=== PATIENT | female | born 1960 | race Caucasian/White ===

== ENCOUNTER 2018-11-24 13:30 | Inpatient (IN) | payer BC, OTHER ==
[2018-11-24] VITALS (8 sets, daily range): BP systolic 76–130; BP diastolic 41–75
[~2018-11-24] VITALS: Ht 160 cm; Wt 137.4 kg
[2018-11-24] MEDS ORDERED: NS IV 1000 ML 1,000 ML ONE (14:23)
[2018-11-24] MEDS: NS IV 1000 ML 1,000 ML IV SCH ×5 (14:35→19:57)
[2018-11-24 14:38] LABS: HEMATOCRIT 28 % (35-52); HEMOGLOBIN 7.6 G/DL (11.5-16.0); MEAN CORPUSCULAR HEMOGLOBIN 21 PG (25-34); MEAN CORPUSCULAR VOLUME 77 FL (80-99); WHITE BLOOD COUNT 22.4 10^3/uL (4.3-11.0)
[2018-11-24 14:39] LABS: BASOPHILS # (AUTO) 0.1 10^3/uL (0.0-0.1); BASOPHILS % (AUTO) 0 % (0-10); EOSINOPHILS # (AUTO) 0.1 10^3/uL (0.0-0.3); EOSINOPHILS % (AUTO) 0 % (0-10); LYMPHOCYTES # (AUTO) 1.6 X 10^3 (1.0-4.0); LYMPHOCYTES % (AUTO) 7 % (12-44); MEAN CORPUSCULAR HGB CONC 27 G/DL (32-36); MEAN PLATELET VOLUME 10.7 FL (7.4-10.4); MONOCYTES # (AUTO) 0.9 X 10^3 (0.0-1.0); MONOCYTES % (AUTO) 4 % (0-12); NEUTROPHILS # (AUTO) 19.3 X 10^3 (1.8-7.8); NEUTROPHILS % (AUTO) 86 % (42-75); PLATELET COUNT 400 10^3/uL (130-400); RED CELL DISTRIBUTION WIDTH 21.1 % (10.0-14.5)
--- NOTE | 2018-11-24 14:47 | Diagnostic Imaging Report ---
INDICATION: Fever and generalized weakness. TIME OF EXAM: 2:20 PM COMPARISON: No prior studies are available for comparison. FINDINGS: Single view examination of the chest fails to reveal evidence of active parenchymal pathology or pleural effusion. The cardiac silhouette is normal. IMPRESSION: Negative chest. Dictated by: Dictated on workstation # [id number]
[2018-11-24 14:52] LABS: BILIRUBIN,URINE 1+ (NEGATIVE); CLARITY,URINE CLOUDY; COLOR,URINE YELLOW; GLUCOSE, URINE (UA) NEGATIVE (NEGATIVE); KETONES,URINE NEGATIVE (NEGATIVE); NITRITE,URINE NEGATIVE (NEGATIVE); PROTEIN,URINE 1+ (NEGATIVE)
[2018-11-24 14:53] LABS: BACTERIA,URINE LARGE /HPF; LEUKOCYTE ESTERASE ,URINE 2+ (NEGATIVE); RBC,URINE 0-2 /HPF; SQUAMOUS EPITHELIAL CELL,UR 25-50 /HPF; UROBILINOGEN,URINE 0.2 MG/DL (NORMAL)
[2018-11-24 14:56] LABS: POTASSIUM 4.9 MMOL/L (3.6-5.0)
[2018-11-24 14:57] LABS: BILIRUBIN,TOTAL 0.3 MG/DL (0.1-1.0); CREATININE SERUM 3.46 MG/DL (0.60-1.30); TOTAL PROTEIN 7.4 GM/DL (6.4-8.2)
[2018-11-24 14:58] LABS: ALBUMIN 4.1 GM/DL (3.2-4.5)
[2018-11-24 15:11] LABS: BAND NEUTROPHILS 9 %; BASOPHILS % (MANUAL) 0 %; EOSINOPHILS % (MANUAL) 1 %; HYPOCHROMASIA SLIGHT; LYMPHOCYTES % (MANUAL) 6 %; METAMYELOCYTES % 1 %; MONOCYTES % (MANUAL) 6 %; NEUTROPHILS % (MANUAL) 77 %
--- NOTE | 2018-11-24 15:41 | ED General ---
General Chief Complaint: Fever-Adult/Adol Stated Complaint: LOW BP, BLURRY VISION Nursing Triage Note: Patient reports fever, generalized weakness, aches, and chills x 3 days. Denies any pain currently, states she vomited several days ago, but attributes nausea/vomiting to "eating things I shouldn't have." She reports chronic diarrhea, states her heart rate is always elevated above 115. Nursing Sepsis Screen: Possible Sepsis Risk Source of Information: Patient, Family Exam Limitations: No Limitations History of Present Illness Date Seen by Provider: Nov 24, 2018 Time Seen by Provider: 15:37 Initial Comments The patient is a 58-year-old white female who relates that she has been sick for the last 3 days. This constituted vomiting diarrhea and fever up to 102. Today she feels lightheaded wobbly and with blurred vision. She reports that she always has a rapid heart rate. She is diabetic and states that her diabetic medications cause diarrhea. She does not have any specific localizing symptoms Timing/Duration: 3-4 Days Allergies and Home Medications Allergies Coded Allergies: codeine (Verified Adverse Reaction, Unknown, 11/24/18) Patient Home Medication List Home Medication List Reviewed: Yes Review of Systems Review of Systems Constitutional: see HPI, dizziness, fever, malaise, weakness EENTM: no symptoms reported Respiratory: no symptoms reported Cardiovascular: palpitations Gastrointestinal: diarrhea, heartburn, loss of appetite, nausea, vomiting Genitourinary: no symptoms reported Musculoskeletal: muscle weakness Skin: no symptoms reported Psychiatric/Neurological: No Symptoms Reported Hematologic/Lymphatic: No Symptoms Reported Past Qkgepxc-Incicv-Gtposs Hx Past Med/Social Hx: Reviewed Nursing Past Med/Soc Hx Patient Social History Alcohol Use: Denies Use Recreational Drug Use: No Smoking Status: Never a Smoker 2nd Hand Smoke Exposure: No Recent Foreign Travel: No Contact w/Someone Who Travel: No Recent Infectious Disease Expo: No Recent Hopitalizations: No Physical Abuse: No Sexual Abuse: No Mistreated: No Fear: No Seasonal Allergies Seasonal Allergies: No Past Medical History Surgeries: Yes Appendectomy, Gallbladder, Hysterectomy Respiratory: Yes COPD Cardiac: Yes Hypertension Neurological: Yes Neuropathy Genitourinary: No Gastrointestinal: Yes Gastroesophageal Reflux Musculoskeletal: No Endocrine: No HEENT: No Cancer: No Psychosocial: No Integumentary: No Blood Disorders: Yes (anemia) Physical Exam-Suspected Sepsis Physical Exam Vital Signs Vital Signs - First Documented 11/24/18 13:50 Temp 100.6 Pulse 133 Resp 23 B/P (MAP) 138/67 (90) Pulse Ox 96 O2 Delivery Room Air Capillary Refill : Less Than 3 Seconds Blood Pressure Mean: 90 Height, Weight, BMI Height: 5'3.00" Weight: 292lbs. oz. 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, 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 Skin: normal color Lymphatic: No Adenopathy Focused Exam Sepsis Stage: Sepsis Lactate Level 11/24/18 15:50: Lactic Acid Level 1.57 Time of Focused Exam: 16:53 Respiratory: Lungs Clear, Normal Breath Sounds Cardiovascular: Tachycardia (rate to 125) Capillary Refill: Less Than 3 Seconds Skin: normal color, warm/dry Lactic Acid Level Laboratory Tests Test 11/24/18 15:50 Lactic Acid Level 1.57 MMOL/L (0.50-2.00) Within 3hrs of presentation: Admin fluids, Admin ABX, Blood cultures prior to ABX's, Focus exam, Lactate level Progress/Results/Core Measures Suspected Sepsis Recent Fever Within 48 Hours: Yes Infection Criteria Present: Suspected New Infection New/Unexplained Altered Menta: No Sepsis Screen: Possible Sepsis Risk SIRS Temperature:100.6 Pulse: 133 Respiratory Rate: 23 Laboratory Tests 11/24/18 13:45: White Blood Count 22.4H Blood Pressure 138 /67 Mean: 90 11/24/18 15:50: Lactic Acid Level 1.57 Laboratory Tests 11/24/18 13:45: Creatinine 3.46H, Platelet Count 400, Total Bilirubin 0.3 Results/Orders Lab Results Laboratory Tests Test 11/24/18 13:45 11/24/18 15:50 Range/Units White Blood Count 22.4 H 4.3-11.0 10^3/uL Red Blood Count 3.68 L 4.35-5.85 10^6/uL Hemoglobin 7.6 L 11.5-16.0 G/DL Hematocrit 28 L 35-52 % Mean Corpuscular Volume 77 L 80-99 FL Mean Corpuscular Hemoglobin 21 L 25-34 PG Mean Corpuscular Hemoglobin Concent 27 L 32-36 G/DL Red Cell Distribution Width 21.1 H 10.0-14.5 % Platelet Count 400 130-400 10^3/uL Mean Platelet Volume 10.7 H 7.4-10.4 FL Neutrophils (%) (Auto) 86 H 42-75 % Lymphocytes (%) (Auto) 7 L 12-44 % Monocytes (%) (Auto) 4 0-12 % Eosinophils (%) (Auto) 0 0-10 % Basophils (%) (Auto) 0 0-10 % Neutrophils # (Auto) 19.3 H 1.8-7.8 X 10^3 Lymphocytes # (Auto) 1.6 1.0-4.0 X 10^3 Monocytes # (Auto) 0.9 0.0-1.0 X 10^3 Eosinophils # (Auto) 0.1 0.0-0.3 10^3/uL Basophils # (Auto) 0.1 0.0-0.1 10^3/uL Neutrophils % (Manual) 77 % Lymphocytes % (Manual) 6 % Monocytes % (Manual) 6 % Eosinophils % (Manual) 1 % Basophils % (Manual) 0 % Metamyelocytes % 1 % Band Neutrophils 9 % Hypochromasia SLIGHT Urine Color YELLOW Urine Clarity CLOUDY Urine pH 5.0 5-9 Urine Specific Combs >=1.030 1.016-1.022 Urine Protein 1+ H NEGATIVE Urine Glucose (UA) NEGATIVE NEGATIVE Urine Ketones NEGATIVE NEGATIVE Urine Nitrite NEGATIVE NEGATIVE Urine Bilirubin 1+ H NEGATIVE Urine Urobilinogen 0.2 NORMAL MG/DL Urine Leukocyte Esterase 2+ H NEGATIVE Urine RBC (Auto) NEGATIVE NEGATIVE Urine RBC 0-2 /HPF Urine WBC 10-25 H /HPF Urine Squamous Epithelial Cells 25-50 H /HPF Urine Crystals NONE /LPF Urine Bacteria LARGE H /HPF Urine Casts NONE /LPF Urine Mucus SMALL H /LPF Urine Culture Indicated YES Sodium Level 135 135-145 MMOL/L Potassium Level 4.9 3.6-5.0 MMOL/L Chloride Level 98 98-107 MMOL/L Carbon Dioxide Level 20 L 21-32 MMOL/L Anion Gap 17 H 5-14 MMOL/L Blood Urea Nitrogen 33 H 7-18 MG/DL Creatinine 3.46 H 0.60-1.30 MG/DL Estimat Glomerular Filtration Rate 14 BUN/Creatinine Ratio 10 Glucose Level 88 70-105 MG/DL Calcium Level 9.0 8.5-10.1 MG/DL Corrected Calcium 8.9 8.5-10.1 MG/DL Total Bilirubin 0.3 0.1-1.0 MG/DL Aspartate Amino Transf (AST/SGOT) 16 5-34 U/L Alanine Aminotransferase (ALT/SGPT) 13 0-55 U/L Alkaline Phosphatase 94 40-136 U/L Total Protein 7.4 6.4-8.2 GM/DL Albumin 4.1 3.2-4.5 GM/DL Lactic Acid Level 1.57 0.50-2.00 MMOL/L My Orders Orders - BRITTNEY BETTENCOURT MD Cbc With Automated Diff (11/24/18 14:21) Comprehensive Metabolic Panel (11/24/18 14:21) Ua Culture If Indicated (11/24/18 14:21) Chest 1 View Ap/Pa Only (11/24/18 14:23) Ns Iv 1000 Ml (Sodium Chloride 0.9%) (11/24/18 14:23) Ns Iv 1000 Ml (Sodium Chloride 0.9%) (11/24/18 14:45) Manual Differential (11/24/18 13:45) Urine Culture (11/24/18 13:45) Blood Culture (11/24/18 15:28) Lactic Acid Analyzer (11/24/18 15:28) Sputum Culture (11/24/18 15:28) Ns Iv 1000 Ml (Sodium Chloride 0.9%) (11/24/18 15:30) Blood Culture (11/24/18 15:37) Ceftriaxone For Iv Use (Rocephin For I (11/24/18 16:45) Ceftriaxone For Iv Use (Rocephin For I (11/24/18 16:41) Vital Signs/I&O 11/24/18 13:50 Temp 100.6 Pulse 133 Resp 23 B/P (MAP) 138/67 (90) Pulse Ox 96 O2 Delivery Room Air Capillary Refill : Less Than 3 Seconds Blood Pressure Mean: 90 Departure Communication (Admissions) The patient's temperature was 100.6 blood pressure 138/67 pulse 133 anion gap 17 creatinine 3.46 UA White blood cells 10-25 chest x-ray was negative white count was 22,400 hemoglobin was 7.6 lactic acid was 1.57. Her previous record was probed. There were no previous CBCs or chemistries available. I spoke to Dr. Silvia Borjas at [facility] and the patient will be transferred to via [facility] with a diagnosis of sepsis. She has responded well to IV fluids. She has been given a dose of Rocephin as her UA is the only apparent source of infection. Impression Primary Impression: sepsis/apparent urinary tract infection Additional Impression: dehydration/AR I Disposition: 09 ADMITTED INPATIENT Condition: Improved Admissions Decision to Admit Reason: Admit from ER (General) Decision to Admit/Date: Nov 24, 2018 Time/Decision to Admit Time: 16:10 BRITTNEY BETTENCOURT MD Nov 24, 2018 15:41
[2018-11-24] MEDS ORDERED: cefTRIAXone 1,000 MG IV (ROCEPHIN) VIAL ONE (16:41)
[2018-11-24] MEDS ORDERED: cefTRIAXone FOR IV USE 1,000 MG in WATER (STERILE) FOR INJECTION 10 ML IV ONE (16:45)
[2018-11-24] MEDS: inSUlin ASPART (NovoLOG) 1 UNIT/0.01 ML (CHARGE PER UNIT) SC SCH (21:50)
[2018-11-24] MEDS ORDERED: PANTOPRAZOLE 20 MG TABLET (PROTONIX) PO ONE (22:04)
[2018-11-24] MEDS: PANTOPRAZOLE 20 MG TABLET (PROTONIX) PO SCH (22:16)
[2018-11-24] MEDS: ENOXAPARIN 30 MG/0.3 ML (LOVENOX) SYR SC SCH (22:17)
[2018-11-25] VITALS (25 sets, daily range): BP systolic 97–163; BP diastolic 48–89
[2018-11-25] MEDS: NS IV 1000 ML 1,000 ML IV SCH ×4 (02:45→23:36)
[2018-11-25 03:30] LABS: BASOPHILS # (AUTO) 0.1 10^3/uL (0.0-0.1); BASOPHILS % (AUTO) 1 % (0-10); EOSINOPHILS # (AUTO) 0.1 10^3/uL (0.0-0.3); EOSINOPHILS % (AUTO) 1 % (0-10); HEMATOCRIT 24 % (35-52); LYMPHOCYTES # (AUTO) 1.8 X 10^3 (1.0-4.0); LYMPHOCYTES % (AUTO) 14 % (12-44); MEAN CORPUSCULAR HGB CONC 28 G/DL (32-36); MEAN CORPUSCULAR VOLUME 76 FL (80-99); MEAN PLATELET VOLUME 10.5 FL (7.4-10.4); MONOCYTES # (AUTO) 0.5 X 10^3 (0.0-1.0); MONOCYTES % (AUTO) 4 % (0-12); NEUTROPHILS # (AUTO) 10.3 X 10^3 (1.8-7.8); NEUTROPHILS % (AUTO) 81 % (42-75); PLATELET COUNT 318 10^3/uL (130-400); RED CELL DISTRIBUTION WIDTH 21.1 % (10.0-14.5); WHITE BLOOD COUNT 12.7 10^3/uL (4.3-11.0)
[2018-11-25 03:31] LABS: MEAN CORPUSCULAR HEMOGLOBIN 22 PG (25-34)
[2018-11-25 03:44] LABS: CREATININE SERUM 2.27 MG/DL (0.60-1.30); POTASSIUM 4.5 MMOL/L (3.6-5.0)
[2018-11-25 03:45] LABS: ALBUMIN 3.4 GM/DL (3.2-4.5); BILIRUBIN,TOTAL 0.1 MG/DL (0.1-1.0); MAGNESIUM 1.7 MG/DL (1.8-2.4); PHOSPHORUS 4.1 MG/DL (2.3-4.7); TOTAL PROTEIN 6.2 GM/DL (6.4-8.2)
[2018-11-25] MEDS: inSUlin ASPART (NovoLOG) 1 UNIT/0.01 ML (CHARGE PER UNIT) SC SCH ×4 (05:09→20:14)
--- NOTE | 2018-11-25 05:09 | Pulmonary Consultation ---
History of Present Illness History of Present Illness Date of Consultation 11/25/18 05:08 Time Seen by Provider: 05:09 Date of Admission History of Present Illness 58yo presented to ED secondary to worsening fever (102), SOB, N/v, chills, and weakness over the last 3 days.SOB is worse with even little exertion. Pt also has a hx of JACK however she is noncompliant with CPAP therapy. I am consulted for pulmonary management. Allergies and Home Medications Allergies Coded Allergies: codeine (Verified Adverse Reaction, Unknown, 11/24/18) Home Medications Allopurinol 300 Mg Tablet, 300 MG PO DAILY, (Reported) Aspirin 81 Mg Tablet.dr, 81 MG PO HS, (Reported) Cholecalciferol (Vitamin D3) 2,000 Unit Tablet, 2,000 UNIT PO DAILY, (Reported) Fluoxetine HCl 40 Mg Capsule, 40 MG PO DAILY, (Reported) Gabapentin 300 Mg Capsule, 300 MG PO HS, (Reported) Glipizide 5 Mg Tablet, 2.5 MG PO DAILY Prescribed by: TU SOLIS on 12/01/18 1045 Lisinopril 20 Mg Tablet, 20 MG PO DAILY Prescribed by: TU SOLIS on 12/01/18 1043 Multivitamin 1 Each Tablet, 1 TAB PO DAILY, (Reported) Omeprazole 20 Mg Capsule.dr, 20 MG PO HS, (Reported) Progesterone,Micronized 200 Mg Capsule, 200 MG PO HS, (Reported) Past Meucdyp-Kgrkjv-Tsuyei Hx Past Med/Social Hx: Reviewed Nursing Past Med/Soc Hx Patient Social History Alcohol Use: Denies Use Recreational Drug Use: No Smoking Status: Never a Smoker 2nd Hand Smoke Exposure: No Recent Foreign Travel: No Contact w/Someone Who Travel: No Recent Infectious Disease Expo: No Recent Hopitalizations: No Physical Abuse: No Sexual Abuse: No Mistreated: No Fear: No Seasonal Allergies Seasonal Allergies: No Past Medical History Surgeries: Yes Appendectomy, Gallbladder, Hysterectomy Respiratory: Yes COPD Cardiac: Yes Hypertension Neurological: Yes Neuropathy Genitourinary: No Gastrointestinal: Yes Gastroesophageal Reflux Musculoskeletal: No Endocrine: No HEENT: No Cancer: No Psychosocial: No Integumentary: No Blood Disorders: Yes (anemia) Review of Systems Time Seen by Provider: 11:15 Constitutional: Fever, Chills, Sweats, Weakness, Malaise, Other Eyes: No: Pain, Vision change, Conjunctivae inflammation, Eyelid inflammation, Other, Redness ENT: Nose congestion; No: Ear pain, Ear discharge, Nose pain, Nose discharge, Mouth pain, Mouth swelling, Throat pain, Throat swelling, Other Respiratory: Cough, Shortness of breath, SOB with excertion, Wheezing; No: Hemoptysis, Pleuritic Pain Cardiovascular: Palpitations, Paroxysmal Noc. Dyspnea, Lt Headedness Gastrointestinal: Nausea, Abdominal Pain Sepsis Event Evaluation Height, Weight, BMI Height: 5'3.00" Weight: 292lbs. 0.0oz. 132.474264ep; 51.7 BMI Method:Stated Exam Exam Vital Signs Date Time Temp Pulse Resp B/P (MAP) Pulse Ox O2 Delivery O2 Flow Rate FiO2 11/25/18 04:00 102 21 108/59 (75) 99 Nasal Cannula 2.00 11/25/18 04:00 96 Nasal Cannula 2.00 11/25/18 03:00 101 12 107/48 (67) 100 Nasal Cannula 2.00 11/25/18 02:00 105 22 130/68 (88) 99 Nasal Cannula 2.00 11/25/18 01:00 110 28 107/63 (78) 90 Room Air 11/25/18 01:00 107 11/25/18 00:00 112 28 101/60 (74) 90 Room Air 11/25/18 00:00 97 Room Air 11/24/18 23:00 129 24 96 Room Air 11/24/18 22:00 128 23 130/69 (89) 98 Room Air 11/24/18 21:00 135 28 120/60 (80) 96 Room Air 11/24/18 20:00 96 Room Air 11/24/18 20:00 123 14 94/51 (65) 95 Room Air 11/24/18 19:30 123 9 95/57 (70) 96 Room Air 11/24/18 19:29 98.2 122 16 95/46 (62) 96 Room Air 11/24/18 19:00 124 11/24/18 19:00 126 10 76/53 (61) 92 Room Air 11/24/18 18:45 96 Room Air 11/24/18 18:45 128 39 83/41 (55) 93 Room Air 11/24/18 18:30 128 13 130/75 (93) 94 Room Air 11/24/18 17:45 100.5 134 35 128/56 (80) 94 Room Air 11/24/18 13:50 100.6 133 23 138/67 (90) 96 Room Air I & O 11/25/18 07:00 Intake Total 5450 ml Output Total 700 ml Balance 4750 ml Height & Weight Height: 5'3.00" Weight: 292lbs. 0.0oz. 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 Hx of tobacco use CARMEN ABDALLA DO Nov 25, 2018 05:09
[2018-11-25] MEDS ORDERED: morphine INJ 4 MG/ML 1 ML (VIAL/SYRINGE) IVP PRN (06:15)
[2018-11-25] MEDS: MAGNESIUM 1 GM/100 ML IVPB 100 ML IV SCH ×2 (08:29→10:36)
[2018-11-25] MEDS: PANTOPRAZOLE 20 MG TABLET (PROTONIX) PO SCH ×2 (08:59→20:14)
--- NOTE | 2018-11-25 09:35 | Diagnostic Imaging Report ---
INDICATION: Shortness of breath. Portable chest at 3:36 AM FINDINGS: Heart size and pulmonary vascularity are normal. Lungs are clear. There are no effusions or pneumothoraces. IMPRESSION: Negative chest. Dictated by: Dictated on workstation # [id number]
--- NOTE | 2018-11-25 15:54 | History & Physical ---
HPI History of Present Illness: 58 yo F that presented with worsening shortness of breath, fever and vomiting. States that she had a previous admission with similar onset several years ago. States that she has been feeling bad for about a week. She has had temps up to 102 in the last 48 hrs. Denies any coughing but having shortness of breath with minimal activity. States that she does not wear oxygen at home. She is suppose to be on CPAP but does not wear it. Denies any sick contacts. She was found to be profoundly anemia. Denies any GI bleeding. Source: patient Date seen by provider: Nov 25, 2018 Time Seen by Provider: 11:30 Attending Physician Dayo Grey MD PCP SelfOlman MD Consult Date of Admission Nov 24, 2018 at 17:10 Home Medications Home Medications Reviewed patient Home Medication Reconciliation performed by pharmacy medication reconciliations isotope technician and/or nursing. Patients Allergies have been reviewed. Allergies Coded Allergies: codeine (Verified Adverse Reaction, Unknown, 11/24/18) KEM-Csrqff-Aomite Hx Patient Social History Living Status: Lives at home with Alcohol Use: Denies Use Recreational Drug Use: No Smoking Status: Former Smoker (quit in 2002) 2nd Hand Smoke Exposure: No Recent Foreign Travel: No Contact w/other who traveled: No Recent Hopitalizations: No Recent Infectious Disease Expo: No Past Medical History Obesity JACK: Non compliant with CPAP NIDDM Family Medical History Significant Family History: No Pertinent Family Hx Review of Systems (CHC) Constitutional: chills, fever, malaise, weakness EENTM: no symptoms reported; No nose congestion, No nose pain, No throat pain Respiratory: dyspnea on exertion, orthopnea, short of breath Cardiovascular: no symptoms reported; No chest pain, No edema, No palpitations Gastrointestinal: No abdominal pain, No constipation, No diarrhea; loss of appetite; No melena Genitourinary: No dysuria; frequency; No hematuria : No Musculoskeletal: no symptoms reported; No back pain, No joint pain, No muscle pain Skin: no symptoms reported; No lesions, No rash Psychiatric/Neurological: No Symptoms Reported Reviewed Test Results Reviewed Test Results Lab Laboratory Tests Test 11/24/18 20:07 11/25/18 02:54 11/25/18 06:15 11/25/18 06:55 Range/Units Glucometer 84 70-110 MG/DL White Blood Count 12.7 H 4.3-11.0 10^3/uL Red Blood Count 3.15 L 4.35-5.85 10^6/uL Hemoglobin 7.0 L 11.5-16.0 G/DL Hematocrit 24 L 35-52 % Mean Corpuscular Volume 76 L 80-99 FL Mean Corpuscular Hemoglobin 22 L 25-34 PG Mean Corpuscular Hemoglobin Concent 28 L 32-36 G/DL Red Cell Distribution Width 21.1 H 10.0-14.5 % Platelet Count 318 130-400 10^3/uL Mean Platelet Volume 10.5 H 7.4-10.4 FL Neutrophils (%) (Auto) 81 H 42-75 % Lymphocytes (%) (Auto) 14 12-44 % Monocytes (%) (Auto) 4 0-12 % Eosinophils (%) (Auto) 1 0-10 % Basophils (%) (Auto) 1 0-10 % Neutrophils # (Auto) 10.3 H 1.8-7.8 X 10^3 Lymphocytes # (Auto) 1.8 1.0-4.0 X 10^3 Monocytes # (Auto) 0.5 0.0-1.0 X 10^3 Eosinophils # (Auto) 0.1 0.0-0.3 10^3/uL Basophils # (Auto) 0.1 0.0-0.1 10^3/uL Sodium Level 137 135-145 MMOL/L Potassium Level 4.5 3.6-5.0 MMOL/L Chloride Level 110 #H 98-107 MMOL/L Carbon Dioxide Level 17 L 21-32 MMOL/L Anion Gap 10 5-14 MMOL/L Blood Urea Nitrogen 28 H 7-18 MG/DL Creatinine 2.27 H 0.60-1.30 MG/DL Estimat Glomerular Filtration Rate 22 BUN/Creatinine Ratio 12 Glucose Level 126 H 70-105 MG/DL Calcium Level 8.0 L 8.5-10.1 MG/DL Corrected Calcium 8.5 8.5-10.1 MG/DL Phosphorus Level 4.1 2.3-4.7 MG/DL Magnesium Level 1.7 L 1.8-2.4 MG/DL Total Bilirubin 0.1 0.1-1.0 MG/DL Aspartate Amino Transf (AST/SGOT) 19 5-34 U/L Alanine Aminotransferase (ALT/SGPT) 14 0-55 U/L Alkaline Phosphatase 80 40-136 U/L Total Protein 6.2 L 6.4-8.2 GM/DL Albumin 3.4 3.2-4.5 GM/DL Stool Occult Blood Immunoassay NEGATIVE NEGATIVE Test 11/25/18 11:55 11/25/18 15:42 Range/Units Glucometer 121 H 128 H 70-110 MG/DL Physical Exam-(CHC) Physical Exam Vital Signs VS - Last 72 Hours, by Label 11/24/18 11/24/18 11/24/18 11/24/18 13:50 17:45 18:30 18:45 Temp 100.6 100.5 Pulse 133 134 128 128 Resp 23 35 13 39 B/P (MAP) 138/67 (90) 128/56 (80) 130/75 (93) 83/41 (55) Pulse Ox 96 94 94 93 O2 Delivery Room Air Room Air Room Air Room Air 11/24/18 11/24/18 11/24/18 11/24/18 18:45 19:00 19:00 19:29 Temp 98.2 Pulse 126 124 122 Resp 10 16 B/P (MAP) 76/53 (61) 95/46 (62) Pulse Ox 96 92 96 O2 Delivery Room Air Room Air Room Air 11/24/18 11/24/18 11/24/18 11/24/18 19:30 20:00 20:00 21:00 Pulse 123 123 135 Resp 9 14 28 B/P (MAP) 95/57 (70) 94/51 (65) 120/60 (80) Pulse Ox 96 95 96 96 O2 Delivery Room Air Room Air Room Air Room Air 11/24/18 11/24/18 11/25/18 11/25/18 22:00 23:00 00:00 00:00 Pulse 128 129 112 Resp 23 24 28 B/P (MAP) 130/69 (89) 101/60 (74) Pulse Ox 98 96 97 90 O2 Delivery Room Air Room Air Room Air Room Air 11/25/18 11/25/18 11/25/18 11/25/18 01:00 01:00 02:00 03:00 Pulse 107 110 105 101 Resp 28 22 12 B/P (MAP) 107/63 (78) 130/68 (88) 107/48 (67) Pulse Ox 90 99 100 O2 Delivery Room Air Nasal Cannula Nasal Cannula O2 Flow Rate 2.00 2.00 11/25/18 11/25/18 11/25/18 11/25/18 04:00 04:00 05:00 06:00 Pulse 102 101 105 Resp 21 16 28 B/P (MAP) 108/59 (75) 99/56 (70) 99/56 (70) Pulse Ox 96 99 98 96 O2 Delivery Nasal Cannula Nasal Cannula Nasal Cannula Nasal Cannula O2 Flow Rate 2.00 2.00 2.00 2.00 11/25/18 11/25/18 11/25/18 11/25/18 07:00 07:00 08:00 08:00 Pulse 101 97 114 Resp 8 13 B/P (MAP) 109/59 (76) 119/59 (79) Pulse Ox 96 96 96 O2 Delivery Nasal Cannula Nasal Cannula Nasal Cannula O2 Flow Rate 2.00 2.00 2.00 11/25/18 11/25/18 11/25/18 11/25/18 08:32 09:00 11:00 12:00 Pulse 113 103 Resp 15 20 B/P (MAP) 99/65 (76) 97/65 (76) Pulse Ox 96 94 96 O2 Delivery Nasal Cannula Nasal Cannula Nasal Cannula Nasal Cannula O2 Flow Rate 2.00 2.00 2.00 2.00 11/25/18 11/25/18 11/25/18 11/25/18 12:00 12:33 12:45 13:00 Temp 97.1 98.0 Pulse 111 108 105 95 Resp 34 17 17 B/P (MAP) 124/81 (95) 124/81 119/73 Pulse Ox 95 95 96 O2 Delivery Nasal Cannula Room Air Room Air O2 Flow Rate 2.00 11/25/18 11/25/18 11/25/18 11/25/18 13:00 14:00 14:45 15:00 Temp 98.0 97.6 Pulse 109 107 107 107 Resp 14 21 22 14 B/P (MAP) 140/80 (100) 129/73 (91) 131/73 124/68 (86) Pulse Ox 93 93 93 93 O2 Delivery Nasal Cannula Nasal Cannula Room Air Nasal Cannula O2 Flow Rate 2.00 2.00 2.00 Capillary Refill : Less Than 3 SecondsLess Than 3 Seconds General Appearance: WD/WN, mild distress (with minimal activity), obese HEENT: PERRL/EOMI Neck: non-tender, full range of motion, supple Respiratory: chest non-tender, lungs clear, normal breath sounds, respiratory distress Cardiovascular: normal peripheral pulses, regular rate, rhythm, no murmur, other (1+ pitting edema bilaterally) Gastrointestinal: normal bowel sounds, non tender, soft Back: no CVA tenderness, no vertebral tenderness Extremities: normal range of motion, non-tender, no calf tenderness, normal capillary refill 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, no motor/sensory deficits, alert, normal mood/affect, oriented x 3 Skin: normal color, warm/dry Lymphatic: no adenopathy Assessment/Plan Assessment/Plan Admission Status: Inpatient Order (span 2 midnights) Reason for Inpatient Admission: Patient needs workup for shortness of breath, requiring blood transfusions (1) Sepsis secondary to UTI Status: Acute Assessment & Plan: - IVFs, IV antibiotics, HDS, awaiting cultures (2) Acute renal failure Status: Acute Assessment & Plan: - Will continue to monitor with IVFs Qualifiers: Qualified Codes: N17.9 - Acute kidney failure, unspecified (3) Hypoxia Status: Acute Assessment & Plan: - BNP and echo pending, Dr Og consulted (4) Microcytic anemia Status: Acute Assessment & Plan: - 1 unit pRBCs, iron studies pending, Hemoccult pending (5) Dehydration Status: Acute (6) JACK (obstructive sleep apnea) Status: Chronic Assessment & Plan: - Discussed the need to wear CPAP (7) DVT prophylaxis Status: Acute Assessment & Plan: - SCDs given profound anemia Clinical Quality Measures DVT/VTE Risk/Contraindication: Risk Factor Score Per Nursin RFS Level Per Nursing on Admit: 3=High Copy Copies To 1: SELF,OLMAN GREY,DAYO Koenig MD Nov 25, 2018 15:54
[2018-11-25] MEDS: cefTRIAXone 1,000 MG/SWFI 10 ML IV PUSH IV SCH ×2 (16:47)
--- NOTE | 2018-11-25 19:30 | NUR ---
SSI non admin d/t patient still eating dinner.
[2018-11-25] MEDS: ENOXAPARIN 30 MG/0.3 ML (LOVENOX) SYR SC SCH (20:15)
[2018-11-25] MEDS: ACETAMINOPHEN 325 MG TABLET PO PRN (21:02)
[2018-11-26] VITALS (8 sets, daily range): BP systolic 140–168; BP diastolic 68–89
[2018-11-26 03:52] LABS: BASOPHILS % (AUTO) 1 % (0-10); EOSINOPHILS # (AUTO) 0.3 10^3/uL (0.0-0.3); EOSINOPHILS % (AUTO) 3 % (0-10); HEMATOCRIT 25 % (35-52); LYMPHOCYTES # (AUTO) 1.4 X 10^3 (1.0-4.0); LYMPHOCYTES % (AUTO) 16 % (12-44); MEAN CORPUSCULAR HEMOGLOBIN 21 PG (25-34); MEAN CORPUSCULAR HGB CONC 28 G/DL (32-36); MEAN CORPUSCULAR VOLUME 77 FL (80-99); MEAN PLATELET VOLUME 10.7 FL (7.4-10.4); MONOCYTES # (AUTO) 0.6 X 10^3 (0.0-1.0); MONOCYTES % (AUTO) 7 % (0-12); NEUTROPHILS # (AUTO) 6.1 X 10^3 (1.8-7.8); NEUTROPHILS % (AUTO) 74 % (42-75); PLATELET COUNT 262 10^3/uL (130-400); WHITE BLOOD COUNT 8.3 10^3/uL (4.3-11.0)
--- NOTE | 2018-11-26 03:55 | NUR ---
Order to transfer patient to4th floor status per Dr Grey. Patient will transfer to room 420. Report given to Priya via telephone.
[2018-11-26 04:13] LABS: CALCIUM 8.3 MG/DL (8.5-10.1); CREATININE SERUM 1.88 MG/DL (0.60-1.30); MAGNESIUM 2.1 MG/DL (1.8-2.4); POTASSIUM 4.5 MMOL/L (3.6-5.0)
--- NOTE | 2018-11-26 04:30 | NUR ---
TRANSFERRED TO ROOM 420 PER W/C. IV INFUSING AT 75CC/HR. AMBULATORY TO BATHROOM WITH SBA AND WALKER. FAIRLY STEADY GAIT. 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 ALERT AND ORIENTED X4. PLEASANT AND COOPERATIVE. HGB 7.0 THIS MORNING.
[2018-11-26] MEDS: inSUlin ASPART (NovoLOG) 1 UNIT/0.01 ML (CHARGE PER UNIT) SC SCH ×4 (05:25→19:53)
--- NOTE | 2018-11-26 07:28 | Pulmonary Progress Note ---
Subjective Time Seen by a Provider: 07:28 Subjective/Events-last exam NO complications noted. Sepsis Event Evaluation Height, Weight, BMI Height: 5'3.00" Weight: 310lbs. 3.0oz. [id number]; 51.7 BMI Method:Stated Focused Exam Lactate Level 11/24/18 15:50: Lactic Acid Level 1.57 Time of Focused Exam: 16:53 Exam Exam Vital Signs Date Time Temp Pulse Resp B/P (MAP) Pulse Ox O2 Delivery O2 Flow Rate FiO2 11/26/18 05:26 97.7 109 18 143/68 (93) 96 Nasal Cannula 2.00 2.00 11/26/18 04:51 97.7 109 18 143/68 (93) 96 Nasal Cannula 2.00 11/26/18 03:15 97 Nasal Cannula 2.00 11/26/18 03:15 97.7 112 18 154/89 (110) 97 Nasal Cannula 2.00 11/26/18 03:00 105 13 98 Room Air 11/26/18 02:00 99 13 97 Room Air 11/26/18 01:00 105 26 149/72 (97) 98 Room Air 11/26/18 01:00 105 11/26/18 00:00 103 22 140/73 (95) 98 Room Air 11/25/18 23:25 Nasal Cannula 2.00 11/25/18 23:25 96 Nasal Cannula 2.00 11/25/18 23:00 98.0 Nasal Cannula 2.00 11/25/18 23:00 102 21 137/78 (97) 98 Room Air 11/25/18 22:00 105 20 140/86 (104) 99 Room Air 11/25/18 21:15 111 19 163/89 (113) 96 Room Air 11/25/18 20:00 114 10 139/77 (97) 92 Room Air 11/25/18 20:00 97.9 Room Air 11/25/18 19:45 96 Room Air 11/25/18 19:00 111 17 145/78 (100) 96 Nasal Cannula 2.00 11/25/18 19:00 111 11/25/18 18:00 107 15 124/71 (88) 96 Nasal Cannula 2.00 11/25/18 17:00 106 15 130/72 (91) 95 Nasal Cannula 2.00 11/25/18 16:00 105 20 141/81 (101) 99 Nasal Cannula 2.00 11/25/18 16:00 96 Nasal Cannula 2.00 11/25/18 15:00 107 14 124/68 (86) 93 Nasal Cannula 2.00 11/25/18 14:45 97.6 107 22 131/73 93 Room Air 11/25/18 14:00 107 21 129/73 (91) 93 Nasal Cannula 2.00 11/25/18 13:00 98.0 109 14 140/80 (100) 93 Nasal Cannula 2.00 11/25/18 13:00 98.0 95 17 119/73 96 Room Air 11/25/18 12:45 97.1 105 17 124/81 95 Room Air 11/25/18 12:33 108 11/25/18 12:00 111 34 124/81 (95) 95 Nasal Cannula 2.00 11/25/18 12:00 96 Nasal Cannula 2.00 11/25/18 11:00 103 20 97/65 (76) 94 Nasal Cannula 2.00 11/25/18 09:00 113 15 99/65 (76) 96 Nasal Cannula 2.00 11/25/18 08:32 Nasal Cannula 2.00 11/25/18 08:00 114 13 119/59 (79) 96 Nasal Cannula 2.00 11/25/18 08:00 96 Nasal Cannula 2.00 I & O 11/26/18 07:00 Intake Total 3520 ml Output Total 7050 ml Balance -3530 ml Height & Weight Height: 5'3.00" Weight: 310lbs. 3.0oz. 140.602982hr; 51.7 BMI Method:Stated General Appearance: No Apparent Distress Neck: Normal Inspection Respiratory: Lungs Clear, Normal Breath Sounds Capillary Refill: Less Than 3 Seconds Gastrointestinal: normal bowel sounds, non tender, soft Extremity: Normal Capillary Refill, Normal Inspection, Normal Range of Motion, Non Tender, No Calf Tenderness, No Pedal Edema Neurologic/Psychiatric: Alert, Oriented x3, No Motor/Sensory Deficits, Normal Mood/Affect, flight teacher II-XII Norm as Tested Lymphatic: No Adenopathy Results Lab Laboratory Tests 11/24/18 13:45 11/25/18 02:54 11/26/18 03:25 Assessment/Plan Assessment/Plan Sepsis with UTI -Rocephin -Dacosta cultures Metabolic acidosis -IVF Anemia -Monitor Acute renal failure -Monitor Obesity with JACK -Noncompliant CPAP therapy Medical noncompliance -Pt refused CPAP therapy and home oxygen in the past -She also has stopped all of her INH. Hx of tobacco use CARMEN ABDALLA DO Nov 26, 2018 07:28
[2018-11-26] MEDS: PANTOPRAZOLE 20 MG TABLET (PROTONIX) PO SCH ×2 (09:15→19:57)
--- NOTE | 2018-11-26 09:15 | NUR ---
IVF DC'D ORDERED.
--- NOTE | 2018-11-26 10:49 | Diagnostic Imaging Report ---
INDICATION: Dyspnea FINDINGS: Upright portable chest shows normal heart size and vascularity. The lungs are clear. There is no effusion or pneumothorax. There is no bony abnormality. IMPRESSION: Normal chest with no change from 11/25/2018. Dictated by: Dictated on workstation # [id number]
--- NOTE | 2018-11-26 12:09 | NUR ---
ARRIVED IN PATIENT ROOM PATIENT ON ROOM AIR OXYGEN SAT WAS 87% PLACED PATIENT BACK ON 2L/M STARTED WALK ON 2L SAT DROPPED TO 84% AT TWO MINUTES TURNED OXYGEN UP TO 4L OXYGEN SAT CAME UP TO 93% AND REMAINED THERE FOR REMAINDER OF THE 6 MINUTES Addendum: 11/26/18 at 1212 by CHEKO PALMA RT Amended: Links added.
[2018-11-26 12:29] LABS: CALCIUM 8.5 MG/DL (8.5-10.1); CREATININE SERUM 1.75 MG/DL (0.60-1.30); POTASSIUM 4.6 MMOL/L (3.6-5.0)
--- NOTE | 2018-11-26 16:53 | Progress Note ---
Subjective Subjective/Events-last exam Patient asking to go home today. Hgb has not improved. Patient is still having severe shortness of breath with minimal activity. Tolerating PO diet and ambulation. Review of Systems Date Seen by Provider: Nov 26, 2018 Time Seen by Provider: 08:40 Pulmonary: Dyspnea, Cough Cardiovascular: No: Chest Pain, Palpitations Gastrointestinal: No: Nausea, Vomiting, Abdominal Pain Neurological: Weakness Focused Exam Lactate Level 11/24/18 15:50: Lactic Acid Level 1.57 Time of Focused Exam: 16:53 Objective Exam Last Set of Vital Signs Vital Signs Date Time Temp Pulse Resp B/P (MAP) Pulse Ox O2 Delivery O2 Flow Rate FiO2 11/26/18 16:05 98.3 105 20 158/81 (106) 99 Nasal Cannula 2.00 Capillary Refill : Less Than 3 SecondsLess Than 3 Seconds I&O Intake and Output 11/26/18 00:00 Intake Total 4620 ml Output Total 4850 ml Balance -230 ml Intake Oral 2570 ml IV Total 2000 ml Other 50 ml Output Urine Total 4850 ml # Voids 2 # Bowel Movements 4 General: Alert, Oriented X3, Cooperative, Mild Distress (with minimal activity) HEENT: Mucous Memb Moist/Social Circle Lungs: Clear to Auscultation, Normal Air Movement Heart: Regular Rate, No Murmurs Abdomen: Normal Bowel Sounds, Soft, No Tenderness, No Masses Extremities: Other (2+ pitting edema bilaterally) Skin: No Rashes, No Breakdown Neuro: Normal Speech, Sensation Intact, Cranial Nerves 3-12 NL Results/Procedures Lab Laboratory Tests 11/25/18 22:17: Glucometer 133H 11/26/18 03:25: White Blood Count 8.3, Red Blood Count 3.27L, Hemoglobin 7.0L, Hematocrit 25L, Mean Corpuscular Volume 77L, Mean Corpuscular Hemoglobin 21L, Mean Corpuscular Hemoglobin Concent 28L, Red Cell Distribution Width 21.0H, Platelet Count 262, Mean Platelet Volume 10.7H, Neutrophils (%) (Auto) 74, Lymphocytes (%) (Auto) 16, Monocytes (%) (Auto) 7, Eosinophils (%) (Auto) 3, Basophils (%) (Auto) 1, Neutrophils # (Auto) 6.1, Lymphocytes # (Auto) 1.4, Monocytes # (Auto) 0.6, Eosinophils # (Auto) 0.3, Basophils # (Auto) 0.0, Sodium Level 138, Potassium Level 4.5, Chloride Level 111H, Carbon Dioxide Level 14L, Anion Gap 13, Blood Urea Nitrogen 22H, Creatinine 1.88H, Estimat Glomerular Filtration Rate 27, BUN/Creatinine Ratio 12, Glucose Level 110H, Calcium Level 8.3L, Phosphorus Level 4.0, Magnesium Level 2.1 11/26/18 06:10: Glucometer 116H 11/26/18 10:01: Glucometer 130H 11/26/18 12:05: Sodium Level 137, Potassium Level 4.6, Chloride Level 110H, Carbon Dioxide Level 16L, Anion Gap 11, Blood Urea Nitrogen 20H, Creatinine 1.75H, Estimat Glomerular Filtration Rate 30, BUN/Creatinine Ratio 11, Glucose Level 103, Calcium Level 8.5 11/26/18 15:25: Glucometer 122H Microbiology 11/24/18 Blood Culture - Preliminary, Resulted No growth 11/24/18 Gram Stain - Final, Resulted 11/24/18 Sputum Culture - Preliminary, Resulted Usual upper respiratory susan 11/24/18 Urine Culture - Final, Complete 3 or more isolates Assessment/Plan Assessment/Plan (1) Sepsis secondary to UTI Status: Acute Assessment & Plan: - IVFs, IV antibiotics, HDS, awaiting cultures 11/26: IVFs stopped, continue antibiotics (2) Acute renal failure Status: Acute Assessment & Plan: - Will continue to monitor with IVFs 11/26: Trending down, unsure of baseline, Will likely need outpatient f.u Qualifiers: Qualified Codes: N17.9 - Acute kidney failure, unspecified (3) Hypoxia Status: Acute Assessment & Plan: - BNP and echo pending, Dr Og consulted 11/26: Echo pending, oxygen study completed and patient needs home continuous home oxygen (4) Microcytic anemia Status: Acute Assessment & Plan: - 1 unit pRBCs, iron studies pending, Hemoccult pending 11/26: Iron studies pending, Venofer ordered, Hemoccult neg, retic count in AM (5) Dehydration Status: Acute (6) JACK (obstructive sleep apnea) Status: Chronic Assessment & Plan: - Discussed the need to wear CPAP (7) DVT prophylaxis Status: Acute Assessment & Plan: - SCDs given profound anemia Clinical Quality Measures DVT/VTE Risk/Contraindication: Risk Factor Score Per Nursin RFS Level Per Nursing on Admit: 3=High DAYO GONZALEZ MD Nov 26, 2018 16:53
[2018-11-26] MEDS ORDERED: IRON SUCROSE 200 MG/10 ML (VENOFER) VIAL IV SCH (17:00)
[2018-11-26] MEDS ORDERED: cefTRIAXone 1,000 MG IV (ROCEPHIN) VIAL ONE (17:21)
[2018-11-26] MEDS ORDERED: WATER (STERILE) FOR INJECTION 10 ML ONE (17:21)
[2018-11-26] MEDS: cefTRIAXone 1,000 MG/SWFI 10 ML IV PUSH IV SCH ×2 (17:41)
[2018-11-26] MEDS: IRON SUCROSE 200 MG/10 ML (VENOFER) VIAL IV SCH (18:20)
[2018-11-26] MEDS: ENOXAPARIN 60 MG/0.6 ML (LOVENOX) SYR SC SCH (19:57)
[2018-11-27] VITALS (10 sets, daily range): BP systolic 137–173; BP diastolic 69–83
--- NOTE | 2018-11-27 02:07 | NUR ---
THIS RN CALLED DR. GONZALEZ IN REGARDS TO THE PT'S BLOOD PRESSURE BEING 173/80 WITH A HEART RATE OF 117 BPM. PT STATES SHE TAKES LISINOPRIL 20 MG DAILY FOR BLOOD PRESSURE. ORDERS RECEIVED FOR LISINOPRIL 20 MG PO DAILY START NOW. ORDERS READ BACK AND VERIFIED.
[2018-11-27] MEDS: lisINopril 20 MG (PRINIVIL) TABLET PO SCH ×2 (02:37→09:09)
[2018-11-27] MEDS: inSUlin ASPART (NovoLOG) 1 UNIT/0.01 ML (CHARGE PER UNIT) SC SCH ×4 (05:36→21:04)
[2018-11-27 05:41] LABS: ABSOLUTE RETIC # 57 10e9/L (24-90); BASOPHILS # (AUTO) 0.1 10^3/uL (0.0-0.1); BASOPHILS % (AUTO) 1 % (0-10); EOSINOPHILS # (AUTO) 0.2 10^3/uL (0.0-0.3); EOSINOPHILS % (AUTO) 2 % (0-10); HEMATOCRIT 23 % (35-52); LYMPHOCYTES # (AUTO) 0.8 X 10^3 (1.0-4.0); LYMPHOCYTES % (AUTO) 9 % (12-44); MEAN CORPUSCULAR HEMOGLOBIN 21 PG (25-34); MEAN CORPUSCULAR HGB CONC 28 G/DL (32-36); MEAN CORPUSCULAR VOLUME 77 FL (80-99); MEAN PLATELET VOLUME 10.6 FL (7.4-10.4); MONOCYTES # (AUTO) 0.7 X 10^3 (0.0-1.0); MONOCYTES % (AUTO) 8 % (0-12); NEUTROPHILS # (AUTO) 7.4 X 10^3 (1.8-7.8); NEUTROPHILS % (AUTO) 81 % (42-75); PLATELET COUNT 256 10^3/uL (130-400); RED CELL DISTRIBUTION WIDTH 20.4 % (10.0-14.5); RETICULOCYTE % 1.91 % (0.50-2.40); WHITE BLOOD COUNT 9.1 10^3/uL (4.3-11.0)
[2018-11-27 05:49] LABS: HEMOGLOBIN 6.3 G/DL (11.5-16.0)
[2018-11-27 06:01] LABS: ALBUMIN 3.3 GM/DL (3.2-4.5); BILIRUBIN,TOTAL 0.1 MG/DL (0.1-1.0); CALCIUM 8.8 MG/DL (8.5-10.1); CREATININE SERUM 1.82 MG/DL (0.60-1.30); POTASSIUM 4.5 MMOL/L (3.6-5.0); TOTAL PROTEIN 6.1 GM/DL (6.4-8.2)
[2018-11-27] MEDS ORDERED: OMEP20CA12 PO (09:02)
[2018-11-27] MEDS ORDERED: ALLO300T2 PO (09:02)
[2018-11-27] MEDS ORDERED: GLIP5TAB13 PO (09:02)
[2018-11-27] MEDS ORDERED: FLUO40CA PO (09:02)
[2018-11-27] MEDS ORDERED: LISI1TAB8 PO (09:02)
[2018-11-27] MEDS ORDERED: METF-397 PO (09:02)
[2018-11-27] MEDS ORDERED: GABA-488 PO (09:02)
[2018-11-27] MEDS ORDERED: POTA20TA15 PO (09:02)
[2018-11-27] MEDS ORDERED: PROG200C6 PO (09:02)
[2018-11-27] MEDS ORDERED: MULT1TAB69 PO (09:04)
[2018-11-27] MEDS ORDERED: ASPI-983 PO (09:04)
[2018-11-27] MEDS ORDERED: CHOL200059 PO (09:04)
--- NOTE | 2018-11-27 09:04 | NUR ---
SPOKE WITH THE PATIENT ABOUT HER MEDICATIONS, WE WENT OVER THE EXT MED HX AND SHE VERIFIED HOW SHE TAKES THEM. SHE TAKES ASPIRIN 81MG HS, MTV DAILY, AND VITAMIN D 2000 IU DAILY OTC.
[2018-11-27] MEDS: PANTOPRAZOLE 20 MG TABLET (PROTONIX) PO SCH ×2 (09:09→21:12)
[2018-11-27] MEDS: ACETAMINOPHEN 325 MG TABLET PO PRN (09:09)
[2018-11-27] MEDS: ENOXAPARIN 60 MG/0.6 ML (LOVENOX) SYR SC SCH ×2 (09:45→20:16)
[2018-11-27] MEDS: NS IV 500 ML 500 ML IV SCH ×2 (09:46→22:40)
--- NOTE | 2018-11-27 10:33 | Progress Note - Hospitalist ---
Subjective HPI/CC On Admission Date Seen by Provider: Nov 27, 2018 Time Seen by Provider: 09:30 Subjective/Events-last exam Hgb down to 6.[address] Grey ordered one unit of blood to be given. I did discuss the case with Dr. Deng who will see her. Had a colonoscopy in 2012 when she had some sort of virus and was in the hospital for three weeks, colonoscopy was negative at that time. Lovenox will be held for DVT prophylaxis due to sever anemia. BNP will be ordered and added to the labs. Dr. Espinoza will be consulted and Dr. Og is already on the case for untreated JACK. She used to wear oxygen at night but could not afford it any longer. and adopted daughter at the bedside. Conferred with RN. Reviewed labs and imaging. Review of Systems General: Fatigue Gastrointestinal: Melena Focused Exam Lactate Level Time of Focused Exam: 16:53 Objective Exam Vital Signs Vital Signs Date Time Temp Pulse Resp B/P (MAP) Pulse Ox O2 Delivery O2 Flow Rate FiO2 11/27/18 16:55 98.9 114 20 158/83 (108) 95 Nasal Cannula 2.50 Capillary Refill : Less Than 3 SecondsLess Than 3 Seconds General Appearance: No Apparent Distress, WD/WN, Chronically ill, Obese Neck: Normal Inspection Respiratory: Lungs Clear, No Accessory Muscle Use, Accessory Muscle Use, Decrea sed Breath Sounds Cardiovascular: Regular Rate, Rhythm, No Edema, No Gallop, No JVD, No Murmur Gastrointestinal: Abnormal Bowel Sounds (hypoactive) Extremity: Normal Capillary Refill, Normal Inspection, Normal Range of Motion, Non Tender, No Calf Tenderness, No Pedal Edema Neurologic/Psychiatric: Alert, Oriented x3, No Motor/Sensory Deficits, Normal Mood/Affect, engrosser II-XII Norm as Tested Lymphatic: No Adenopathy Results/Procedures Lab Laboratory Tests 11/27/18 05:05 Patient resulted labs reviewed. Assessment/Plan Assessment and Plan Assess & Plan/Chief Complaint Assessment: (1) Sepsis secondary to UTI (2) Acute renal failure (3) Hypoxia (4) Microcytic anemia (5) Dehydration (6) JACK (obstructive sleep apnea) (7) DVT prophylaxis (8) Melena-consulting Dr Deng (9) Dyspnea consulting Cardiology and Pulmonology and checking BNP Plan: Sowmya consult Hold Lovenox Dr Espinoza consult and check BNP Transfuse Monitor closely Diagnosis/Problems Diagnosis/Problems (1) Sepsis secondary to UTI Status: Acute (2) Transfusion of blood during current hospitalisation Status: Acute (3) JACK (obstructive sleep apnea) Status: Chronic (4) Hypoxia Status: Acute (5) Microcytic anemia Status: Acute (6) Acute renal failure Status: Acute Qualifiers: Acute renal failure type: unspecified Qualified Codes: N17.9 - Acute kidney failure, unspecified (7) Dehydration Status: Acute Clinical Quality Measures DVT/VTE Risk/Contraindication: Risk Factor Score Per Nursin RFS Level Per Nursing on Admit: 3=High TU SOLIS DO Nov 27, 2018 10:33
--- NOTE | 2018-11-27 13:56 | NUR ---
Initial visit with pt, her and daughter. They attended a [employer] before moving to [place] three years ago, after which time they have not created ties with another roman catholic. All engaged openly about the stressors of the pt's health challenges. Family expressed emotional supportiveness. In response to her daughter expressing hopes for her mom being discharged today, the pt said she would need to stay in the hospital at least one more night, if not longer. This Outboard Motor Assembler Offered active listening and compassionate presence.
--- NOTE | 2018-11-27 16:25 | Consultation - Surgery ---
History of Present Illness History of Present Illness Patient Consulted On(herber/time) 11/27/18 16:18 Time Seen by Provider: 15:51 History of Present Illness Surgery asked to consult regarding anemia. HPI per IM: 58 yo F that presented with worsening shortness of breath, fever and vomiting. States that she had a previous admission with similar onset several years ago. States that she has been feeling bad for about a week. She has had temps up to 102 in the last 48 hrs. Denies any coughing but having shortness of breath with minimal activity. States that she does not wear oxygen at home. She is suppose to be on CPAP but does not wear it. Denies any sick contacts. She was found to be profoundly anemia. Denies any GI bleeding. When I spoke to pt today she denies abdominal pain, hematochezia or melena. She states she has had a problem similar to this about 6 yrs ago and was in the hospital for 3 weeks; at that time they did "full work-up and looked at everything, including upper and lower scopes and they didn't find anything". She initially presented with sepsis, her main complaint was feeling run-down. She states she did drive 11 hours to [place] and then 11 hours back and had "my hemorrhoids flare-up, saw some blood on the toilet paper". She has hx of GERD and chronic Gastritis, controlled with daily PPI and not laying down after eating. If she lays down she get "bad acid". Allergies and Home Medications Allergies Coded Allergies: codeine (Verified Adverse Reaction, Unknown, 11/24/18) Home Medications Allopurinol 300 Mg Tablet, 300 MG PO DAILY, (Reported) Aspirin 81 Mg Tablet.dr, 81 MG PO HS, (Reported) Cholecalciferol (Vitamin D3) 2,000 Unit Tablet, 2,000 UNIT PO DAILY, (Reported) Fluoxetine HCl 40 Mg Capsule, 40 MG PO DAILY, (Reported) Gabapentin 300 Mg Capsule, 300 MG PO HS, (Reported) Glipizide 5 Mg Tablet, 5 MG PO DAILY, (Reported) Lisinopril/Hydrochlorothiazide 1 Each Tablet, 1 TAB PO DAILY, (Reported) Metformin HCl 500 Mg Tablet, 500 MG PO BID, (Reported) Multivitamin 1 Each Tablet, 1 TAB PO DAILY, (Reported) Omeprazole 20 Mg Capsule.dr, 20 MG PO HS, (Reported) Potassium Chloride 20 Meq Tab.er.prt, 20 MEQ PO BID, (Reported) Progesterone,Micronized 200 Mg Capsule, 200 MG PO HS, (Reported) Patient Home Medication List Home Medication List Reviewed: Yes Past [id number] Hx Patient Social History Alcohol Use: Denies Use Recreational Drug Use: No Smoking Status: Former Smoker (quit in 2002) 2nd Hand Smoke Exposure: No Recent Foreign Travel: No Contact w/Someone Who Travel: No Recent Infectious Disease Expo: No Recent Hopitalizations: No Seasonal Allergies Seasonal Allergies: No Surgeries History of Surgeries: Yes Surgeries: Appendectomy, Gallbladder, Hysterectomy Respiratory History of Respiratory Disorde: Yes Respiratory Disorders: COPD Cardiovascular History of Cardiac Disorders: Yes Cardiac Disorders: Hypertension Neurological History of Neurological Disord: Yes Neurological Disorders: Neuropathy Reproductive System : No Genitourinary History of Genitourinary Disor: No Gastrointestinal History of Gastrointestinal Di: Yes Gastrointestinal Disorders: Gastroesophageal Reflux Musculoskeletal History of Musculoskeletal Dis: No Endocrine History of Endocrine Disorders: No HEENT History of HEENT Disorders: No Cancer History of Cancer: No Psychosocial History of Psychiatric Problem: Yes Behavioral Health Disorders: Depression Integumentary History of Skin or Integumenta: No Blood Transfusions History of Blood Disorders: Yes (anemia) Family Medical History Significant Family History: Diabetes (Mother, Father and Brother), Hypertension (Mother, Father and Brother), Vascular Disease (Brother has had some toes amputated) Review of Systems-General Constitutional: diaphoresis, malaise, weakness, weight gain EENTM: No blurred vision, No double vision, No mouth pain, No mouth swelling, No epistaxis Respiratory: dyspnea on exertion; No hemoptysis; short of breath; No wheezing Cardiovascular: No chest pain, No edema, No palpitations Gastrointestinal: No abdominal pain, No constipation, No melena, No nausea, No vomiting Genitourinary: dysuria, frequency; No hematuria Musculoskeletal: joint pain, joint swelling, muscle stiffness Skin: No change in color, No change in hair/nails Psychiatric/Neurological: Denies Anxiety; Depressed; Denies Seizure, Denies Tremors Other pt denies any abnormal bleeding or bruising, no heat or cold intolerance Physical Exam-General Problems Physical Exam Vital Signs Vital Signs - First Documented 11/24/18 11/25/18 13:50 02:00 Temp 100.6 Pulse 133 Resp 23 B/P (MAP) 138/67 (90) Pulse Ox 96 O2 Delivery Room Air O2 Flow Rate 2.00 Capillary Refill : Less Than 3 SecondsLess Than 3 Seconds General Appearance: mild distress, obese (morbidly) Eyes: Bilateral Eye PERRL, Bilateral Eye EOMI HEENT: pharynx normal; No scleral icterus (R), No scleral icterus (L) Neck: full range of motion, supple Respiratory: chest non-tender, lungs clear, other (pt is having conversational dyspnea) Cardiovascular: no murmur, tachycardia Gastrointestinal: normal bowel sounds, non tender, no organomegaly, no pu lsatile mass Back: no CVA tenderness, no vertebral tenderness Extremities: no pedal edema, no calf tenderness, normal capillary refill Neurologic/Psychiatric: leasing associate II-XII nml as tested, alert, normal mood/affect, oriented x 3 Skin: normal color, warm/dry Lymphatic: no adenopathy (neck, axilla or groin) Data Review Labs Laboratory Tests 11/26/18 19:45: Glucometer 120H 11/27/18 05:05: White Blood Count 9.1, Red Blood Count 2.98L, Hemoglobin 6.3*L, Hematocrit 23L, Mean Corpuscular Volume 77L, Mean Corpuscular Hemoglobin 21L, Mean Corpuscular Hemoglobin Concent 28L, Red Cell Distribution Width 20.4H, Platelet Count 256, Mean Platelet Volume 10.6H, Neutrophils (%) (Auto) 81H, Lymphocytes (%) (Auto) 9L, Monocytes (%) (Auto) 8, Eosinophils (%) (Auto) 2, Basophils (%) (Auto) 1, Neutrophils # (Auto) 7.4, Lymphocytes # (Auto) 0.8L, Monocytes # (Auto) 0.7, Eosinophils # (Auto) 0.2, Basophils # (Auto) 0.1, Absolute Reticulocyte Count 57, Percent Reticulocyte Count 1.91, Sodium Level 140, Potassium Level 4.5, C hloride Level 112H, Carbon Dioxide Level 18L, Anion Gap 10, Blood Urea Nitrogen 17, Creatinine 1.82H, Estimat Glomerular Filtration Rate 28, BUN/Creatinine Ratio 9, Glucose Level 120H, Calcium Level 8.8, Corrected Calcium 9.4, Total Bilirubin 0.1, Aspartate Amino Transf (AST/SGOT) 21, Alanine Aminotransferase (ALT/SGPT) 25, Alkaline Phosphatase 87, B-Type Natriuretic Peptide 66.4, Total Protein 6.1L, Albumin 3.3 11/27/18 05:34: Glucometer 127H 11/27/18 10:14: Glucometer 128H 11/27/18 11:20: Lab Scanned Report Transfusion Reaction Form 11/27/18 15:14: Glucometer 137H Microbiology 11/24/18 Blood Culture - Preliminary, Resulted No growth 11/24/18 Gram Stain - Final, Complete 11/24/18 Sputum Culture - Final, Complete Usual upper respiratory susan 11/24/18 Urine Culture - Final, Complete 3 or more isolates Assessment/Plan Assessment/Plan Assessment/Plan Anemia DM HTN Morbid Obesity UTI COPD Acute Renal Failure Pt is getting transfused because her Hemoglobin dropped to 6.3 today. She will need a work-up (which can be done as an outpt, no reason to keep her to do prep) with EGD and colonoscopy. If those are not helpful, then she may need to see a Power And Recovery Shift Engineer. [facility] medical care; I will continue to see pt while she is in the hospital. Clinical Quality Measures DVT/VTE Risk/Contraindication: Risk Factor Score Per Nursin RFS Level Per Nursing on Admit: 3=High ERIC AVENDAÑO DO Nov 27, 2018 16:25
[2018-11-27] MEDS ORDERED: REGADENOSON 0.4 MG/5 ML SYR (LEXISCAN) IV ONE (18:00)
--- NOTE | 2018-11-27 18:00 | Consultation-Cardiology ---
HPI-Cardiology Cardiology Consultation: Date of Consultation 11/27/18 Date of Admission Attending Physician Giuliana Grey MD Admitting Physician Olman Albarran MD Consulting Physician Kristina ESPINOZA MD HPI: Time Seen by a Provider: 17:57 Chief Complaint: Shortness of breath This is a 58-year-old lady who presented with shortness of breath, fever and vomiting. She has history of active smoking and COPD. She also has history of diabetes. She denies any cardiac history. Echocardiogram showed normal LV function. No significant valvular heart disease. She was anemic. Review of Systems-Cardiology Review of Systems Constitutional: As described under HPI; No As described under HPI, No no symptoms reported, No chills; fever; No lightheadedness Eyes: No As described under HPI, No no symptoms reported, No blindness, No blurred vision, No contact lenses, No drainage, No decreased acuity, No foreign body sensation, No pain, No vision change Ears/Nose/Throat: No As described under HPI, No no symptoms reported, No chronic hearing loss, No ear discharge, No ear pain, No nasal drainage, No ulcerations Respiratory: No no symptoms reported; As described under HPI; No As described under HPI, No cough, No orthopnea; shortness of breath; No SOB with excertion Cardiovascular: No no symptoms reported; As described under HPI; No As described under HPI, No chest pain, No edema, No irregular heart rate, No lightheadedness, No palpitations Gastrointestinal: No no symptoms reported, No As described under HPI, No abdomen distended, No abdominal pain, No blood streaked bowels, No constipation, No diarrhea, No nausea, No vomiting, No stool coloration changes Genitourinary: No As described under HPI, No burning, No dysuria, No discharge, No frequency, No flank pain, No hematuria, No urgency : No Skin: No rash, No skin related problems, No ulcerations Psychiatric/Neurological: No anxiety, No depression, No seizure, No focal weakness, No syncope Hematologic: No bleeding abnormalities BCB-Ktfxby-Ddrhae Hx Patient Social History Living Status: Lives at home with Alcohol Use: Denies Use Recreational Drug Use: No Smoking Status: Former Smoker (quit in 2002) 2nd Hand Smoke Exposure: No Recent Foreign Travel: No Recent Infectious Disease Expo: No Hospitalization with Isolation: Denies Past Medical History PMH As described under Assessment. Allergies and Home Medications Allergies Coded Allergies: codeine (Verified Adverse Reaction, Unknown, 11/24/18) Home Medications Allopurinol 300 Mg Tablet, 300 MG PO DAILY, (Reported) Aspirin 81 Mg Tablet.dr, 81 MG PO HS, (Reported) Cholecalciferol (Vitamin D3) 2,000 Unit Tablet, 2,000 UNIT PO DAILY, (Reported) Fluoxetine HCl 40 Mg Capsule, 40 MG PO DAILY, (Reported) Gabapentin 300 Mg Capsule, 300 MG PO HS, (Reported) Glipizide 5 Mg Tablet, 5 MG PO DAILY, (Reported) Lisinopril/Hydrochlorothiazide 1 Each Tablet, 1 TAB PO DAILY, (Reported) Metformin HCl 500 Mg Tablet, 500 MG PO BID, (Reported) Multivitamin 1 Each Tablet, 1 TAB PO DAILY, (Reported) Omeprazole 20 Mg Capsule.dr, 20 MG PO HS, (Reported) Potassium Chloride 20 Meq Tab.er.prt, 20 MEQ PO BID, (Reported) Progesterone,Micronized 200 Mg Capsule, 200 MG PO HS, (Reported) Patient Home Medication List Home Medication List Reviewed: Yes Physical Exam-Cardiology Physical Exam Vital Signs/I&O 11/27/18 11/27/18 11/27/18 11/27/18 07:00 08:00 09:37 09:44 Temp 98.6 99.6 Pulse 115 106 105 Resp 20 22 B/P (MAP) 158/81 (106) 144/73 Pulse Ox 99 96 O2 Delivery Nasal Cannula Nasal Cannula Nasal Cannula O2 Flow Rate 2.00 2.00 2.00 11/27/18 11/27/18 11/27/18 10:00 12:00 13:00 Temp 99.3 99.6 Pulse 103 107 105 Resp 24 20 B/P (MAP) 151/81 157/82 (107) Pulse Ox 96 98 O2 Delivery Nasal Cannula Nasal Cannula O2 Flow Rate 2.00 2.00 11/27/18 00:00 Intake Total 3150 ml Balance 3150 ml Capillary Refill : Less Than 3 SecondsLess Than 3 Seconds Constitutional: appears stated age, AAO x 3; No apparent distress; well-develop ed, well-nourished HEENT: PERRL; No normal ENT inspection, No TMs normal, No pharynx normal, No scleral icterus (R), No scleral icterus (L), No pale conjunctivae (R), No pale conjunctivae (L), No photophobia, No TM abnormal (R), No TM abnormal (L), No pharyngeal erythema, No tonsillar exudate, No other, No discharge, No EOMI; hearing is well preserved; No hard of hearing; oral hygience is good; No ulceration, No xanthelasmas are seen Neck: No non-tender, No full range of motion, No supple, No normal inspection, No carotid bruit, No limited range of motion, No lymphadenopathy (R), No lympha denopathy (L), No tender lateral, No tender midline, No thyromegaly, No other; carotid pulses are 2 + bilaterally; No with good upstrokes Respiratory: chest is bilaterally symmetric, lungs clear to auscultation Cardiovascular: regular rate-rhythm; No irregularly irregular, No extra beats, No parasternal heave is noted, No JVD, No edema, No bradycardia, No tachycardia, No point of maximal impulse, No cardiac thrills are palpable; S1 and S2; No gallop/S3, No gallop/S4, No diastolic murmur, No systolic murmur, No friction rub, No click, No other Gastrointestinal: No tender, No soft, No round, No distended, No pulsatile mass, No organomegaly, No guarding, No rebound, No tenderness, No hernia, No m ass, No audible bowel sounds, No abnormal bowel sounds, No abdominal bruits, No spleenomegaly, No other Rectal: deferred Extremities: No normal range of motion, No non-tender, No normal inspection, No pedal edema, No calf tenderness, No normal capillary refill, No pelvis stable, No calf tenderness, No inflammation, No pedal edema, No slow capillary refill, No swelling, No other, No abrasion, No clubbing, No cyanosis, No ecchymosis, No laceration, No no lower extremity edema bilateral, No significant edema, No tenderness, No wound Neurologic/Psychiatric: no motor/sensory deficits, alert, normal mood/affect, oriented x 3, power is 5/5 both on sides Skin: normal color, warm/dry Lymphatic: no adenopathy (neck, axilla or groin) Data Review Labs Laboratory Tests 11/26/18 19:45: Glucometer 120H 11/27/18 05:05: White Blood Count 9.1, Red Blood Count 2.98L, Hemoglobin 6.3*L, Hematocrit 23L, Mean Corpuscular Volume 77L, Mean Corpuscular Hemoglobin 21L, Mean Corpuscular Hemoglobin Concent 28L, Red Cell Distribution Width 20.4H, Platelet Count 256, Mean Platelet Volume 10.6H, Neutrophils (%) (Auto) 81H, Lymphocytes (%) (Auto) 9L, Monocytes (%) (Auto) 8, Eosinophils (%) (Auto) 2, Basophils (%) (Auto) 1, Neutrophils # (Auto) 7.4, Lymphocytes # (Auto) 0.8L, Monocytes # (Auto) 0.7, Eosinophils # (Auto) 0.2, Basophils # (Auto) 0.1, Absolute Reticulocyte Count 57, Percent Reticulocyte Count 1.91, Sodium Level 140, Potassium Level 4.5, Chloride Level 112H, Carbon Dioxide Level 18L, Anion Gap 10, Blood Urea Nitrogen 17, Creatinine 1.82H, Estimat Glomerular Filtration Rate 28, BUN/Creatinine Ra reji 9, Glucose Level 120H, Calcium Level 8.8, Corrected Calcium 9.4, Total Bilirubin 0.1, Aspartate Amino Transf (AST/SGOT) 21, Alanine Aminotransferase (ALT/SGPT) 25, Alkaline Phosphatase 87, B-Type Natriuretic Peptide 66.4, Total Protein 6.1L, Albumin 3.3 11/27/18 05:34: Glucometer 127H 11/27/18 10:14: Glucometer 128H 11/27/18 11:20: Lab Scanned Report Transfusion Reaction Form 11/27/18 15:14: Glucometer 137H Microbiology 11/24/18 Blood Culture - Preliminary, Resulted No growth 11/24/18 Gram Stain - Final, Complete 11/24/18 Sputum Culture - Final, Complete Usual upper respiratory susan 11/24/18 Urine Culture - Final, Complete 3 or more isolates ECG Impression ECG Initial ECG Rhythm: Normal Sinus A/P-Cardiology Assessment/Admission Diagnosis Shortness of breath, Diabetes, COPD, Sepsis Plan Shortness of breath, likely due to COPD. Echocardiogram shows normal LV function. Likely mild diastolic dysfunction. Will recommend nuclear stress testing. Diabetes, COPD, Sepsis. Defer to Dr. Reese. Thank you for your consultation. Please call me if you have any questions. Kp Espinoza MD, FACP, FACC, FSCAI, FHRS, CCDS Interventional Cardiology Cardiac Electrophysiology Vascular Medicine and Endovascular Interventions Clinical Quality Measures DVT/VTE Risk/Contraindication: Risk Factor Score Per Nursin RFS Level Per Nursing on Admit: 3=High Kristina ESPINOZA MD Nov 27, 2018 5:59 pm
[2018-11-27] MEDS ORDERED: cefTRIAXone 1,000 MG IV (ROCEPHIN) VIAL ONE (19:50)
[2018-11-27] MEDS ORDERED: WATER (STERILE) FOR INJECTION 10 ML ONE (19:50)
[2018-11-27] MEDS ORDERED: CALCIUM CARBONATE 500 MG (TUMS) TAB.CHEW PO PRN (20:00)
[2018-11-27] MEDS ORDERED: ALPRAZolam 0.25 MG (XANAX) TAB PO PRN (20:00)
[2018-11-27] MEDS ORDERED: DOCUSATE SODIUM 100 MG (COLACE) CAP PO PRN (20:00)
[2018-11-27] MEDS ORDERED: ONDANSETRON 4 MG/2 ML (SDV) Z0FRAN IVP PRN (20:00)
[2018-11-27] MEDS ORDERED: ACETAMINOPHEN 500 MG TAB (TYLENOL) PO PRN (20:00)
[2018-11-27] MEDS ORDERED: diphenhydrAMINE 25 MG TAB (BENADRYL) PO PRN (20:00)
[2018-11-27] MEDS: cefTRIAXone 1,000 MG/SWFI 10 ML IV PUSH IV SCH ×2 (20:03)
[2018-11-27] MEDS: SENNA W/DOCUSATE (SENOKOT S) TABLET PO SCH (21:12)
[2018-11-28] VITALS (10 sets, daily range): BP systolic 158–176; BP diastolic 76–103
[2018-11-28 05:53] LABS: BASOPHILS # (AUTO) 0.1 10^3/uL (0.0-0.1); BASOPHILS % (AUTO) 1 % (0-10); EOSINOPHILS # (AUTO) 0.2 10^3/uL (0.0-0.3); EOSINOPHILS % (AUTO) 2 % (0-10); HEMATOCRIT 24 % (35-52); LYMPHOCYTES # (AUTO) 0.9 X 10^3 (1.0-4.0); LYMPHOCYTES % (AUTO) 10 % (12-44); MEAN CORPUSCULAR HEMOGLOBIN 22 PG (25-34); MEAN CORPUSCULAR HGB CONC 28 G/DL (32-36); MEAN CORPUSCULAR VOLUME 77 FL (80-99); MEAN PLATELET VOLUME 10.4 FL (7.4-10.4); MONOCYTES # (AUTO) 0.8 X 10^3 (0.0-1.0); MONOCYTES % (AUTO) 8 % (0-12); NEUTROPHILS # (AUTO) 7.5 X 10^3 (1.8-7.8); NEUTROPHILS % (AUTO) 80 % (42-75); PLATELET COUNT 248 10^3/uL (130-400); RED CELL DISTRIBUTION WIDTH 21.3 % (10.0-14.5); WHITE BLOOD COUNT 9.4 10^3/uL (4.3-11.0)
[2018-11-28] MEDS: inSUlin ASPART (NovoLOG) 1 UNIT/0.01 ML (CHARGE PER UNIT) SC SCH ×4 (06:00→19:51)
[2018-11-28 06:16] LABS: ALBUMIN 3.4 GM/DL (3.2-4.5); BILIRUBIN,TOTAL 0.2 MG/DL (0.1-1.0); CALCIUM 8.7 MG/DL (8.5-10.1); CREATININE SERUM 1.79 MG/DL (0.60-1.30); POTASSIUM 4.1 MMOL/L (3.6-5.0); TOTAL PROTEIN 6.2 GM/DL (6.4-8.2)
--- NOTE | 2018-11-28 08:13 | Physician Query Clarification ---
PQ-Further Specificity Admission/Discharge Admission Date: Nov 24, 2018 at 17:10 Discharge Date: The medical record reflects the following clinical scenario: History/Risk Factors: Sepsis/UTI Dehydration Clinical Findings:GFR 14,Creatinine 3.46, BUN 33 Treatment: IV fluids Question: Can you further specify the etiology of acute renal failure per the clinical indicators above? Please document a response in the Progress Notes or Discharge Summary. 1. Acute renal failure due to sepsis. 2. Acute renal failure unrelated to sepsis. 3. Other, with explanation of the clinical findings. 4. Clinically undetermined, no explanation for the clinical findings. Please remember a lack of response to the above will prompt a phone page by CDI/Coding staff. In responding to this query, please exercise your independent professional judgment. The purpose of this communication is to more accurately reflect the complexity of your patients condition. The fact that a question is asked does not imply that any particular answer is desired or expected. Thank you for your timely response to this clarification. Requestors name: Analilia Browning [facility] Phone # ext [phone] or [phone] THIS PHYSICIAN QUERY FORM IS A PERMANENT PART OF THE MEDICAL RECORD ANALILIA BROWNING Nov 28, 2018 08:13
[2018-11-28] MEDS: lisINopril 20 MG (PRINIVIL) TABLET PO SCH (09:30)
[2018-11-28] MEDS: SENNA W/DOCUSATE (SENOKOT S) TABLET PO SCH ×2 (09:30→20:04)
[2018-11-28] MEDS: PANTOPRAZOLE 20 MG TABLET (PROTONIX) PO SCH ×3 (09:30→20:05)
--- NOTE | 2018-11-28 09:48 | Progress Note - Hospitalist ---
Subjective HPI/CC On Admission Date Seen by Provider: Nov 28, 2018 Time Seen by Provider: 09:00 Subjective/Events-last exam Hgb 7.0 after two units of blood. Hematology consulted since she had never seen a stock fitter before. Appreciate Dr. Deng, Dr. Og, Dr. Espinoza. Denies any pain. Home meds were restarted but held quite a few due to renal function. Creatine of 3.4 at admission is now 1.8. Filled out FMLA forms for the who works at [employer]. Inpatient rehab will be evaluated, she may be too independent depending on what PT assesses her to be. May need additional transfusions. Overall weakness is a problem in returning back to independent status at home. No more melena in stools, she is having bowel movements. Review of Systems General: Fatigue Pulmonary: Dyspnea Focused Exam Time of Focused Exam: 16:53 Objective Exam Vital Signs Vital Signs Date Time Temp Pulse Resp B/P (MAP) Pulse Ox O2 Delivery O2 Flow Rate FiO2 11/28/18 18:25 98.5 105 20 176/100 Nasal Cannula 2.50 11/28/18 18:10 98 Capillary Refill : Less Than 3 SecondsLess Than 3 Seconds General Appearance: No Apparent Distress, WD/WN, Chronically ill, Obese Neck: Normal Inspection, Non Tender, Supple Respiratory: Chest Non Tender, Lungs Clear, Normal Breath Sounds, No Accessory Muscle Use, No Respiratory Distress Cardiovascular: Regular Rate, Rhythm, No Edema, No Gallop, No JVD, No Murmur Gastrointestinal: Abnormal Bowel Sounds (hypoactive) Extremity: Normal Capillary Refill, Normal Inspection, Normal Range of Motion, Non Tender, No Calf Tenderness, No Pedal Edema Neurologic/Psychiatric: Alert, Oriented x3, No Motor/Sensory Deficits, Normal Mood/Affect, imcu specialist II-XII Norm as Tested Lymphatic: No Adenopathy Results/Procedures Lab Laboratory Tests 11/28/18 05:00 Patient resulted labs reviewed. Assessment/Plan Assessment and Plan Assess & Plan/Chief Complaint Assessment: (1) Sepsis secondary to UTI (2) Acute renal failure (3) Hypoxia (4) Microcytic anemia consulting Dr Gamboa (5) Dehydration (6) JACK (obstructive sleep apnea) (7) DVT prophylaxis (8) Melena-consulting Dr Deng (9) Dyspnea consulting Cardiology and Pulmonology and checking BNP- improved today Plan: Sowmya consult Hold Lovenox Dr Espinoza consult and check BNP Transfuse per Dr Gamboa Monitor closely Diagnosis/Problems Diagnosis/Problems (1) Sepsis secondary to UTI Status: Acute (2) Transfusion of blood during current hospitalisation Status: Acute (3) JACK (obstructive sleep apnea) Status: Chronic (4) Hypoxia Status: Acute (5) Microcytic anemia Status: Acute (6) Acute renal failure Status: Acute Qualifiers: Acute renal failure type: unspecified Qualified Codes: N17.9 - Acute kidney failure, unspecified (7) Dehydration Status: Acute Clinical Quality Measures DVT/VTE Risk/Contraindication: Risk Factor Score Per Nursin RFS Level Per Nursing on Admit: 3=High TU SOLIS DO Nov 28, 2018 09:48
--- NOTE | 2018-11-28 11:35 | Physical Therapy Evaluation ---
PT Evaluation-General Medical Diagnosis Admission Date Nov 24, 2018 at 17:10 Medical Diagnosis: sepsis/ANNALEE/anemia Onset Date: Nov 24, 2018 Therapy Diagnosis Therapy Diagnosis: debility Height/Weight Height (Feet): 5 Height (Inches): 3.00 Weight (Pounds): 308 Weight (Ounces): 6.4 Precautions Precautions/Isolations: Standard Precautions Referral Physician: Mary Ann Reason for Referral: Evaluation/Treatment Medical History Pertinent Medical History: COPD, DM, HTN, Neuropathy Additional Medical History morbid obesity Current History ER secondary to N&V and fever/blurred vision Reviewed History: Yes Social History Home: Single Level Current Living Status: Spouse Entry Into Home: Stairs With Railing PT Steps Into Home: 2 Prior/Core FIM Prior Level of Function Therapy Code Descriptions/Definitions Functional [place] Measure: 0=Not Assessed/NA 4=Minimal Assistance 1=Total Assistance 5=Supervision or Setup 2=Maximal Assistance 6=Modified [place] 3=Moderate Assistance 7=Complete [place] Therapy Quality Codes: 6 Independent with activity with or without an assistive device 5 Patient requires set up or clean up by helper. Patient completes activity by themselves 4 Supervision or touching assist (CGA). Holcomb provide cues , steadying assist 3 The helper provides less than half the effort to complete the activity 2 The helper provides more than half the effort to complete the activity 1 Dependent. The helper does all the effort to complete an activity 7 Patient refused to complete or attempt activity 9 The patient did not perform the activity before the current illness or injury 88 Not attempted due to Medical conditions or safety concerns Functional Abilities and Goals: Independent: Patient completed the activities by him/herself, with or without an assistive device, with no assistance from a helper. Needed Some Help: Patient needed partial assistance from another person to complete activities. Dependent: A helper completed the activities for the patient. Unknown: Not Applicable: Bed Mobility: 6 Transfers (B,C,W/C) (FIM): 6 Gait: 6 Stairs: 6 Indoor Mobility (Ambulation): Independent Stairs: Independent Prior Devices Use: Walker, Other-see list below Prior Device Use: FWW or cane at home PRN per patient report PT Evaluation-Current Subjective Patient agrees to PT. No c/o. Objective Patient Orientation: Normal For Age Problem Solving: Fair Attachments: Oxygen (2L NC) ROM/Strength ROM Lower Extremities bilateral LE WFL Strength Lower Extremities 4/5 grossly bilateral LE Integumentary/Posture Integumentary refer to nursing notes Bowel Incontinence: No Bladder Incontinence: No Posture WFL Neuromuscular (Tone, Coordination, Reflexes) grossly intact Sensory Vision: Functional Hearing: Functional Sensation Right Lower Extremit: Impaired Sensation Left Lower Extremity: Impaired Transfers Therapy Code Descriptions/Definitions Functional [place] Measure: 0=Not Assessed/NA 4=Minimal Assistance 1=Total Assistance 5=Supervision or Setup 2=Maximal Assistance 6=Modified [place] 3=Moderate Assistance 7=Complete [place] Transfers (B, C, W/C) (FIM): 6 Scootin Sit to/from Stand: 6 Gait Mode of Locomotion: Walk Anticipated Mode of Locomotion: Walk Gait (FIM): 6 Distance (FIM): 3=150 ft Distance: 300' Gait Level of Assist: 6 Gait Assistive Device: FWW Comments/Gait Description FWW for energy conservation Balance Sitting Static: Normal Sitting Dynamic: Normal Standing Static: Normal Standing Dynamic: Normal Assessment/Needs 58 y.o. female, is currently at [facility] with all gross motor skills safely and does not require skilled therapy intervention. Rehab Potential: Fair Post Rehab Potential-Barriers: compliance PT Plan Treatment/Plan Treatment Plan: Discontinue PT, goals met Treatment Plan: Other Treatment Duration: Nov 28, 2018 Frequency: 1 time per week Estimated Hrs Per Day: .25 hour per day Patient and/or Family Agrees t: Yes Discharge Recommendations Therapy D/C Recommendations: Home w/ Family Support Time/GCodes Time In: 1101 Time Out: 1110 Total Billed Treatment Time: 9 Total Billed Treatment 1 visit EVLowC 9 min YOSELIN DICKINSON PT Nov 28, 2018 11:35
--- NOTE | 2018-11-28 11:54 | Occupational Therapy Eval ---
OT Evaluation-General/PLF Medical Diagnosis Admission Date Nov 24, 2018 at 17:10 Medical Diagnosis: sepsis/ANNALEE/anemia Onset Date: Nov 24, 2018 Therapy Diagnosis Therapy Diagnosis: debility Height/Weight Height (Feet): 5 Height (Inches): 3.00 Weight (Pounds): 308 Weight (Ounces): 6.4 Precautions Precautions/Isolations: Standard Precautions Safety Interventions: None Referral Physician: Mary Ann Medical History Pertinent Medical History: COPD, DM, HTN, Neuropathy Additional Medical History anemia Social History Home: Single Level Current Living Status: Spouse Entry Into Home: Stairs With Railing Steps Into Home: 2 ADL-Prior Level of Function Therapy Code Descriptions/Definitions Functional [place] Measure: 0=Not Assessed/NA 4=Minimal Assistance 1=Total Assistance 5=Supervision or Setup 2=Maximal Assistance 6=Modified [place] 3=Moderate Assistance 7=Complete [place] Therapy Quality Codes: 6 Independent with activity with or without an assistive device 5 Patient requires set up or clean up by helper. Patient completes activity by themselves 4 Supervision or touching assist (CGA). Sidney provide cues , steadying assist 3 The helper provides less than half the effort to complete the activity 2 The helper provides more than half the effort to complete the activity 1 Dependent. The helper does all the effort to complete an activity 7 Patient refused to complete or attempt activity 9 The patient did not perform the activity before the current illness or injury 88 Not attempted due to Medical conditions or safety concerns Functional Abilities and Goals: Independent: Patient completed the activities by him/herself, with or without an assistive device, with no assistance from a helper. Needed Some Help: Patient needed partial assistance from another person to complete activities. Dependent: A helper completed the activities for the patient. Unknown: Not Applicable: ADL PLOF Comments Pt reports being independent with self care and mobility prior to admission. Pt does the cooking and cleaning. Self Care: Independent Drive Self: Yes OT Current Status Subjective Pt sitting in chair, agrees to therapy. Mental Status/Objective Patient Orientation: Person, Place, Situation Attachments: Oxygen Current Glasses/Contacts: Yes Hearing Aids: No Dentures/Partials: No Hand Dominance: Left Upper Extremity ROM grossly functional Upper Extremity Coordination Intact ADL-Treatment ADL-Current Pt sitting in chair, states she just finished showering with assist from nursing. Pt states she was able to bathe all areas excepts back/buttocks. States she required assist to thread bilateral LE into underwear, but was then able to pull up without assist. Pt donned socks with assist, but states she does not wear socks at home. Pt requested to change hospital gown, able to complete with set up. Sit to stand with modified independence. Pt able to ambulate in room with FWW, slow pace. Transfer back to chair with modified independence. All n eeds met and family present. Therapy Code Descriptions/Definitions Functional [place] Measure: 0=Not Assessed/NA 4=Minimal Assistance 1=Total Assistance 5=Supervision or Setup 2=Maximal Assistance 6=Modified [place] 3=Moderate Assistance 7=Complete [place] Therapy Quality Codes: 6 Independent with activity with or without an assistive device 5 Patient requires set up or clean up by helper. Patient completes activity by themselves 4 Supervision or touching assist (CGA). Sidney provide cues , steadying assist 3 The helper provides less than half the effort to complete the activity 2 The helper provides more than half the effort to complete the activity 1 Dependent. The helper does all the effort to complete an activity 7 Patient refused to complete or attempt activity 9 The patient did not perform the activity before the current illness or injury 88 Not attempted due to Medical conditions or safety concerns Eating (FIM): 6 Bathing (FIM): 4 Education OT Patient Education: Rehab process Teaching Recipient: Patient Teaching Methods: Discussion Response to Teaching: Verbalize Understanding OT Short Term Goals Short Term Goals 1=Demonstrate adherence to instructed precautions during ADL tasks. 2=Patient will verbalize/demonstrate understanding of assistive devices/modifications for ADL. 3=Patient will improve strength/tolerance for activity to enable patient to perform ADL's. OT Hand Driller Goals Care Home Goals Time Frame: Dec 02, 2018 Bathing(FIM): 5 Upper Body Dressing(FIM): 6 Lower Body Dressing(FIM): 6 Toileting(FIM): 6 Toilet/Commode Transfer(FIM): 6 Additional Goals: 2-Verbalize Understanding, 3-ImproveStrength/Kelly 1=Demonstrate adherence to instructed precautions during ADL tasks. 2=Patient will verbalize/demonstrate understanding of assistive device s/modifications for ADL. 3=Patient will improve strength/tolerance for activity to enable patient to perform ADL's. OT Education/Plan Problem List/Assessment Assessment: Impaired Self-Care Skills Pt to benefit from skilled OT intervention for ADL training to increase level of independence and allow safe return home. Discharge Recommendations Plan/Recommendations: Continue POC Treatment Plan/Plan of Care Treatment,Training & Education: Yes Patient would benefit from OT for education, treatment and training to promote independence in ADL's, mobility, safety and/or upper extremity function for ADL's. Plan of Care: ADL Retraining, Functional Mobility, UE Funct Exercise/Act Treatment Duration: Dec 02, 2018 Frequency: 5 times per week Estimated Hrs Per Day: .25 hour per day Rehab Potential: Fair Time/GCodes Start Time: 10:39 Stop Time: 10:58 Total Time Billed (hr/min): 19 Billed Treatment Time 1 visit, EVL(19minutes) NEIDA SHERWOOD OT Nov 28, 2018 11:54
[2018-11-28] MEDS: CATHETER FLUSH 10 ML SYR IV PRN (13:35)
--- NOTE | 2018-11-28 15:49 | Cardiology Progress Note ---
Cardiology SOAP Progress Note Subjective: Continues to have shortness of breath. Objective: I&O/Vital Signs 11/28/18 11/28/18 11/28/18 11/28/18 04:39 07:00 07:44 08:00 Temp 98.4 99.0 Pulse 113 105 111 Resp 20 20 B/P (MAP) 170/101 (124) 159/90 (113) Pulse Ox 96 99 O2 Delivery Nasal Cannula Nasal Cannula Nasal Cannula O2 Flow Rate 3.00 2.00 3.00 11/28/18 11/28/18 09:00 12:00 Pulse 110 Resp 20 B/P (MAP) 158/76 (103) Pulse Ox 97 99 O2 Delivery Nasal Cannula Nasal Cannula O2 Flow Rate 2.00 3.00 11/28/18 00:00 Intake Total 2120 ml Balance 2120 ml Weight (Pounds): 308 Weight (Ounces): 6.4 Weight (Calculated Kilograms): 139.224522 Constitutional: appears stated age, AAO x 3; No apparent distress; well- developed, well-nourished Respiratory: chest is bilaterally symmetric, lungs clear to auscultation Cardiovascular: regular rate-rhythm; No irregularly irregular, No extra beats, No parasternal heave is noted, No JVD, No edema, No bradycardia, No tachycardia, No point of maximal impulse, No cardiac thrills are palpable; S1 and S2; No gallop/S3, No gallop/S4, No diastolic murmur, No systolic murmur, No friction rub, No click, No other Gastrointestional: No tender, No soft, No round, No distended, No pulsatile mass, No organomegaly, No guarding, No rebound, No tenderness, No hernia, No mass, No audible bowel sounds, No abnormal bowel sounds, No abdominal bruits, No spleenomegaly, No other Extremities: No normal range of motion, No non-tender, No normal inspection, No pedal edema, No calf tenderness, No normal capillary refill, No pelvis stable, No calf tenderness, No inflammation, No pedal edema, No slow capillary refill, No swelling, No other, No abrasion, No clubbing, No cyanosis, No ecchymosis, No laceration, No no lower extremity edema bilateral, No significant edema, No tenderness, No wound Neurologic/Psychiatric: no motor/sensory deficits, alert, normal mood/affect, oriented x 3, power is 5/5 both on sides Skin: normal color, warm/dry Results/Procedures: Labs Laboratory Tests 11/27/18 20:20: Glucometer 124H 11/28/18 05:00: White Blood Count 9.4, Red Blood Count 3.17L, Hemoglobin 7.0L, Hematocrit 24L, Mean Corpuscular Volume 77L, Mean Corpuscular Hemoglobin 22L, Mean Corpuscular Hemoglobin Concent 28L, Red Cell Distribution Width 21.3H, Platelet Count 248, Mean Platelet Volume 10.4, Neutrophils (%) (Auto) 80H, Lymphocytes (%) (Auto) 10 L, Monocytes (%) (Auto) 8, Eosinophils (%) (Auto) 2, Basophils (%) (Auto) 1, Neutrophils # (Auto) 7.5, Lymphocytes # (Auto) 0.9L, Monocytes # (Auto) 0.8, Eosinophils # (Auto) 0.2, Basophils # (Auto) 0.1, Sodium Level 140, Potassium Level 4.1, Chloride Level 110H, Carbon Dioxide Level 22, Anion Gap 8, Blood Urea Nitrogen 14, Creatinine 1.79H, Estimat Glomerular Filtration Rate 29, BUN/Creatinine Ratio 8, Glucose Level 120H, Calcium Level 8.7, Corrected Calcium 9.2, Total Bilirubin 0.2, Aspartate Amino Transf (AST/SGOT) 25, Alanine Aminotransferase (ALT/SGPT) 33, Alkaline Phosphatase 91, Total Protein 6.2L, Albumin 3.4 11/28/18 05:08: Glucometer 123H 11/28/18 10:53: Glucometer 108 11/28/18 11:43: Lab Scanned Report Transfusion Reaction Form 11/28/18 15:20: Glucometer 121H Microbiology 11/24/18 Blood Culture - Preliminary, Resulted No growth 11/24/18 Gram Stain - Final, Complete 11/24/18 Sputum Culture - Final, Complete Usual upper respiratory susan 11/24/18 Urine Culture - Final, Complete 3 or more isolates A/P: Assessment/Dx: Shortness of breath, Diabetes, COPD, Sepsis Plan: Shortness of breath, likely due to COPD. Echocardiogram shows normal LV function. Likely mild diastolic dysfunction. Will recommend nuclear stress testing, which is scheduled for tomorrow morning. Diabetes, COPD, Sepsis. Defer to Dr. Reese. Thank you for your consultation. Please call me if you have any questions. Kp Espinoza MD, FACP, FACC, FSCAI, FHRS, CCDS Interventional Cardiology Cardiac Electrophysiology Vascular Medicine and Endovascular Interventions Focused Exam Time of Focused Exam: 16:53 Kristina ESPINOZA MD Nov 28, 2018 15:49
--- NOTE | 2018-11-28 16:29 | Pulmonary Progress Note ---
Subjective Time Seen by a Provider: 08:00 Subjective/Events-last exam PT is doing better Sepsis Event Evaluation Height, Weight, BMI Height: 5'3.00" Weight: 308lbs. 6.4oz. 139.354538sb; 51.7 BMI Method:Stated Focused Exam Time of Focused Exam: 16:53 Exam Exam Vital Signs Date Time Temp Pulse Resp B/P (MAP) Pulse Ox O2 Delivery O2 Flow Rate FiO2 11/28/18 13:00 109 11/28/18 12:00 110 20 158/76 (103) 99 Nasal Cannula 3.00 11/28/18 09:00 97 Nasal Cannula 2.00 11/28/18 08:00 99.0 111 20 159/90 (113) 99 Nasal Cannula 3.00 11/28/18 07:44 Nasal Cannula 2.00 11/28/18 07:00 105 11/28/18 04:39 98.4 113 20 170/101 (124) 96 Nasal Cannula 3.00 11/28/18 01:00 114 11/28/18 00:03 98.8 114 22 159/78 (105) 95 Nasal Cannula 3.00 11/27/18 20:20 99.6 110 20 165/74 (104) 98 Nasal Cannula 3.00 11/27/18 20:10 97 Nasal Cannula 2.00 11/27/18 19:01 119 11/27/18 16:55 98.9 114 20 158/83 (108) 95 Nasal Cannula 2.50 I & O 11/28/18 07:00 Intake Total 2420 ml Balance 2420 ml Height & Weight Height: 5'3.00" Weight: 308lbs. 6.4oz. 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 Hx of tobacco use CARMEN ABDALLA DO Nov 28, 2018 16:29
[2018-11-28] MEDS: IRON SUCROSE 200 MG/10 ML (VENOFER) VIAL IV SCH (17:00)
[2018-11-28] MEDS: cefTRIAXone 1,000 MG/SWFI 10 ML IV PUSH IV SCH ×2 (17:24)
[2018-11-28] MEDS: NS IV 500 ML 500 ML IV SCH (18:19)
--- NOTE | 2018-11-28 18:34 | NUR ---
CALLED DR SOLIS ABOUT THE HIGH B/P WHEN STARTING PRBCS -- AND GOT ORDER FOR CLONIDINE 0.1 MG PO Q4HRS PRN SBP>180
[2018-11-28] MEDS: cloNIDine 0.1 MG (CATAPRES) TAB PO PRN (19:03)
[2018-11-28] MEDS: GABAPENTIN 300 MG (NEURONTIN) CAP PO SCH (20:03)
[2018-11-28] MEDS: PROGESTERONE 200 MG CAP (PROMETRIUM) NON-FORMULARY PO SCH (20:05)
--- NOTE | 2018-11-28 22:37 | CONSULTATION REPORT ---
DATE OF SERVICE: 11/28/2018 PHYSICIAN REQUESTING CONSULTATION: Lima Reese DO PRIMARY PHYSICIAN: Olman Albarran MD The patient is admitted to room 420. IMPRESSION: 1. A 58-year-old female admitted with a febrile illness, acute on chronic renal failure and severe anemia. 2. Iron deficiency anemia with no obvious source of blood loss. 3. Acute on chronic renal failure. 4. Other comorbidities including diabetes mellitus type 2, chronic obstructive pulmonary disease, obstructive sleep apnea, chronic kidney disease, obesity. RECOMMENDATIONS: 1. Agree with transfusion of packed red blood cells to maintain hemoglobin more than or equal to 8 grams per deciliter because of symptomatic anemia, shortness of breath and acute renal failure. 2. Agree with parenteral iron replacement because of iron deficiency anemia. 3. Initiate a GI workup to rule out any source of blood loss with EGD and colonoscopy. If this is completely normal, then the patient will need a capsule endoscopy. 4. Continue management of respiratory and cardiac problems as you are doing. 5. Will follow the patient with you. BRIEF HISTORY: The patient is a 58-year-old female who was brought to the emergency room with a febrile illness and increasing shortness of breath. She was admitted to the hospital because of significant anemia, probable sepsis, acute renal failure, etc. She received 2 units of packed red blood cells with continued anemia. Iron studies were consistent with a significant iron deficiency. The patient has been started on parenteral iron therapy. A hematology consultation was requested for further recommendations and management. PAST MEDICAL HISTORY: Significant for diabetes mellitus diagnosed 15 years ago and the patient has been on oral agents. She was diagnosed with obstructive sleep apnea and was using CPAP in the distant past, but because of financial issues, she discontinued using this several years ago. Also diagnosed with COPD. She has significant obesity, which limits her activity level also. She underwent TAHBSO at the age of 21 years because of ovarian cysts. SOCIAL HISTORY: The patient is and lives in [place], [place], with her . She has no children of her own, but had three adopted children, two sons and a daughter. She has no contact with her sons who are adults now. Daughter is 26 years old and still lives at home. She has more than [id number] history of tobacco use, but quit smoking in 2012. Denied any significant alcohol or other recreational drug use. FAMILY HISTORY: Essentially unremarkable with no major medical problems that the patient knows of. PHYSICAL EXAMINATION: GENERAL: Today showed an elderly female, morbidly obese, awake and oriented and in mild respiratory distress. VITAL SIGNS: Temperature was 98.5, pulse rate of 105, respirations 20, blood pressure 176/100, oxygen saturation of 98% on 2.5 liters of oxygen by nasal cannula. HEENT: Normocephalic, extraocular muscles intact, conjunctivae pale, sclerae anicteric, oral mucosa moist. NECK: Supple, with no JVD. No cervical, supraclavicular or axillary lymphadenopathy palpable. CHEST: Symmetrical. Lungs with diminished breath sounds bilaterally without any wheezes or rales. CARDIOVASCULAR: Borderline tachycardic, regular with no murmurs or gallops heard. ABDOMEN: Obese, soft, nontender with no hepatosplenomegaly or other masses palpable. EXTREMITIES: Showed trace edema in the lower extremities. NEUROLOGIC: Showed no focal motor deficits. Overall, motor strength was 4/5 bilaterally. LABORATORY DATA: CBC done today showed WBC 9.4, hemoglobin 7.0, MCV 77, platelet count 248,000 with neutrophil count 7.5, lymphocyte count 0.9 and monocyte count 0.8. Hemoglobin level yesterday was 6.3 with a reticulocyte count of 57,000. The patient received 2 units of packed red blood cell transfusion. Chemistry panel done today showed relatively normal electrolytes. BUN was 14 and creatinine 1.79 with GFR 29 mL per minute. Liver function studies were entirely within normal limits. Chemistry panel done at the time of admission on 11/24/2018 showed relatively normal electrolytes. BUN was 33 with a creatinine of 3.46 and GFR of 14 mL per minute. Liver function studies were entirely within normal limits. Chest x-ray done at the time of admission was negative. Urinalysis done at the time of admission showed 2+ leukocyte esterase with 10 to 25 wbc's, large amount of bacteria. Cultures are pending. Thank you for allowing me to participate in this patient's care. I will follow the patient with you and make appropriate recommendations. Job ID: [id number] DocumentID: [id number] Dictated Date: 11/28/2018 19:08:53 Customer Care Consultant Date: 11/28/2018 22:36:21 Dictated By: MARIO BLOOM MD DOCTORS HOSPITALNavneet
[2018-11-29 03:59] VITALS: BP 155/91
[2018-11-29 05:34] LABS: BASOPHILS # (AUTO) 0.1 10^3/uL (0.0-0.1); BASOPHILS % (AUTO) 1 % (0-10); EOSINOPHILS # (AUTO) 0.2 10^3/uL (0.0-0.3); EOSINOPHILS % (AUTO) 2 % (0-10); HEMATOCRIT 26 % (35-52); HEMOGLOBIN 7.5 G/DL (11.5-16.0); LYMPHOCYTES # (AUTO) 1.2 X 10^3 (1.0-4.0); LYMPHOCYTES % (AUTO) 13 % (12-44); MEAN CORPUSCULAR HEMOGLOBIN 23 PG (25-34); MEAN CORPUSCULAR HGB CONC 29 G/DL (32-36); MEAN CORPUSCULAR VOLUME 79 FL (80-99); MEAN PLATELET VOLUME 10.6 FL (7.4-10.4); MONOCYTES # (AUTO) 0.6 X 10^3 (0.0-1.0); MONOCYTES % (AUTO) 7 % (0-12); NEUTROPHILS # (AUTO) 6.9 X 10^3 (1.8-7.8); NEUTROPHILS % (AUTO) 77 % (42-75); PLATELET COUNT 249 10^3/uL (130-400); RED CELL DISTRIBUTION WIDTH 20.9 % (10.0-14.5)
[2018-11-29 05:54] LABS: ALBUMIN 3.2 GM/DL (3.2-4.5); BILIRUBIN,TOTAL 0.2 MG/DL (0.1-1.0); CALCIUM 8.7 MG/DL (8.5-10.1); CREATININE SERUM 1.61 MG/DL (0.60-1.30); POTASSIUM 4.1 MMOL/L (3.6-5.0)
[2018-11-29] MEDS: inSUlin ASPART (NovoLOG) 1 UNIT/0.01 ML (CHARGE PER UNIT) SC SCH ×2 (05:56→20:49)
[2018-11-29] MEDS: CATHETER FLUSH 10 ML SYR IV PRN (07:22)
--- NOTE | 2018-11-29 07:22 | Pulmonary Progress Note ---
Subjective Time Seen by a Provider: 07:21 Subjective/Events-last exam No complications noted. Sepsis Event Evaluation Height, Weight, BMI Height: 5'3.00" Weight: 308lbs. 4.2oz. 139.566237lh; 51.7 BMI Method:Stated Focused Exam Time of Focused Exam: 16:53 Exam Exam Vital Signs Date Time Temp Pulse Resp B/P (MAP) Pulse Ox O2 Delivery O2 Flow Rate FiO2 11/29/18 03:59 97.6 93 18 155/91 (112) 98 Nasal Cannula 2.00 11/29/18 01:00 89 11/28/18 23:44 97.5 105 18 167/103 (124) 96 Nasal Cannula 2.00 11/28/18 20:46 98.4 97 160/84 98 Nasal Cannula 2.00 11/28/18 20:00 Nasal Cannula 2.00 11/28/18 20:00 99.1 98 18 160/84 (109) 100 Nasal Cannula 2.00 11/28/18 19:00 105 11/28/18 18:25 98.5 105 20 176/100 Nasal Cannula 2.50 11/28/18 18:10 98.5 102 20 175/93 98 Nasal Cannula 2.50 11/28/18 16:00 98.5 102 20 175/93 (120) 98 Nasal Cannula 2.50 11/28/18 13:00 109 11/28/18 12:00 110 20 158/76 (103) 99 Nasal Cannula 3.00 11/28/18 09:00 97 Nasal Cannula 2.00 11/28/18 08:00 99.0 111 20 159/90 (113) 99 Nasal Cannula 3.00 11/28/18 07:44 Nasal Cannula 2.00 I & O 11/29/18 07:00 Intake Total 2300 ml Balance 2300 ml Height & Weight Height: 5'3.00" Weight: 308lbs. 4.2oz. 139.352179my; 51.7 BMI Method:Stated General Appearance: No Apparent Distress, WD/WN, Chronically ill, Obese Neck: Normal Inspection, Non Tender, Supple Respiratory: Chest Non Tender, Lungs Clear, Normal Breath Sounds, No Accessory Muscle Use, No Respiratory Distress Cardiovascular: Regular Rate, Rhythm, No Edema, No Gallop, No JVD, No Murmur Capillary Refill: Less Than 3 Seconds Gastrointestinal: normal bowel sounds, non tender, soft Extremity: Normal Capillary Refill, Normal Inspection, Normal Range of Motion, Non Tender, No Calf Tenderness, No Pedal Edema Neurologic/Psychiatric: Alert, Oriented x3, No Motor/Sensory Deficits, Normal 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
[2018-11-29] MEDS ORDERED: REGADENOSON 0.4 MG/5 ML SYR (LEXISCAN) IV ONE (07:49)
[2018-11-29 09:00] VITALS: BP 186/62
[2018-11-29] MEDS: SENNA W/DOCUSATE (SENOKOT S) TABLET PO SCH ×2 (09:34→20:44)
[2018-11-29] MEDS: FLUoxetine HCL 20 MG (PROzac) CAP PO SCH (09:34)
[2018-11-29] MEDS: PANTOPRAZOLE 20 MG TABLET (PROTONIX) PO SCH ×3 (09:34→20:44)
[2018-11-29] MEDS: lisINopril 20 MG (PRINIVIL) TABLET PO SCH (09:34)
--- NOTE | 2018-11-29 10:07 | NUR ---
CM/SS spoke with the patient in regards to the SS consult. Patient has not had oxygen at night or her CPAP since 2012, she stated then that the insurance she had had a high deductible and she wasn't able to afford it. Patient has different insurance now. She has understanding of her need for oxygen and it being set up at discharge.
--- NOTE | 2018-11-29 10:35 | Progress Note - Hospitalist ---
Subjective HPI/CC On Admission Date Seen by Provider: Nov 29, 2018 Time Seen by Provider: 09:30 Subjective/Events-last exam Pt appears to be much improved Hgb of 7.5 Dr. Gamboa requires Hgb of 8.0 prior to DC Iron and transfusions until at goal Likely will DC tomorrow or Tuesday PT and OT will be maintained Bowels are moving without blood Needs EGD and colonoscopy and Dr. Deng will complete that likely as an outpatient. Review of Systems General: Fatigue Pulmonary: Dyspnea Focused Exam Time of Focused Exam: 16:53 Objective Exam Vital Signs Vital Signs Date Time Temp Pulse Resp B/P (MAP) Pulse Ox O2 Delivery O2 Flow Rate FiO2 11/29/18 19:00 94 11/29/18 16:57 Nasal Cannula 2.00 11/29/18 16:16 99.1 20 153/74 (100) 97 Capillary Refill : Less Than 3 SecondsLess Than 3 Seconds General Appearance: No Apparent Distress, WD/WN, Anxious, Chronically ill, Obese, Other (improved) Neck: Normal Inspection, Non Tender, Supple Respiratory: Chest Non Tender, Lungs Clear, Normal Breath Sounds, No Accessory Muscle Use, No Respiratory Distress Cardiovascular: Regular Rate, Rhythm, No Edema, No Gallop, No JVD, No Murmur Gastrointestinal: No Pulsatile Mass, Non Tender, Soft Extremity: Normal Capillary Refill, Normal Inspection, Normal Range of Motion, Non Tender, No Calf Tenderness, No Pedal Edema Neurologic/Psychiatric: Alert, Oriented x3, No Motor/Sensory Deficits, Normal 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 Assessment/Plan Assessment and Plan Assess & Plan/Chief Complaint Assessment: (1) Sepsis secondary to UTI (2) Acute renal failure (3) Hypoxia (4) Microcytic anemia consulting Dr Gamboa (5) Dehydration (6) JACK (obstructive sleep apnea) (7) DVT prophylaxis (8) Melena-consulting Dr Deng (9) Dyspnea consulting Cardiology and Pulmonology and checking BNP- improved today Plan: Sowmya consult needs endoscopy outpatient Hold Lovenox Dr Espinoza consult and check BNP Transfuse per Dr Gamboa Monitor closely Diagnosis/Problems Diagnosis/Problems (1) Sepsis secondary to UTI Status: Acute (2) Transfusion of blood during current hospitalisation Status: Acute (3) JACK (obstructive sleep apnea) Status: Chronic (4) Hypoxia Status: Acute (5) Microcytic anemia Status: Acute (6) Acute renal failure Status: Acute Qualifiers: Acute renal failure type: unspecified Qualified Codes: N17.9 - Acute kidney failure, unspecified (7) Dehydration Status: Acute Clinical Quality Measures DVT/VTE Risk/Contraindication: Risk Factor Score Per Nursin RFS Level Per Nursing on Admit: 3=High TU SOLIS DO Nov 29, 2018 10:35
--- NOTE | 2018-11-29 11:09 | Cardiology Stress Test Report ---
Stress Test Report Type of NM Stress Test: Test Type: LEXISCAN 0.4MG/5ML Date of Procedure/Referring: Date of Procedure: Nov 29, 2018 PCP Giuliana Grey MD Admitting Physician Olman Albarran MD Indications: Shortness of breath Baseline Heart Rate: 97 Baseline Blood Pressure: Blood Pressure Systolic: 186 Blood Pressure Diastolic: 62 Baseline EKG: Baseline EKG: sinus rhythm Summary & Conclusion: Summary: The patient was brought to the stress lab after informed consent was taken. Stress test was performed according to the Lexiscan protocol. 0.4 mg of IV Lexiscan was given. Low-grade exercise was performed. Baseline EKG showed sinus rhythm at 97 BPM. Initial blood pressure was 190/91 mmHg. Maximum heart rate was 109 bpm and blood pressure 163/86 mmHg. Patient did not have any chest pain, arrhythmias or ST segment changes during the stress test. 10.64 mCi of Myoview were given for rest imaging and 32.5 mCi of Myoview given for stress imaging. Transient ischemic dilatation score 1.09, EF 68 percent. Normal wall motion. Very small fixed inferior defect with normal wall motion likely an artifact. Conclusion: Pharmacological stress test was negative for ischemia. Normal LV function with no wall motion abnormalities. Small fixed inferior defect with normal wall motion likely an artifact. Clinical correlation is recommended. Kristina AVILA MD Nov 29, 2018 11:09
--- NOTE | 2018-11-29 11:46 | Occupational Ther Daily Note ---
OT Current Status-Daily Note Subjective Pt alert, sitting in recliner. Family present. No c/o pain at this time. Pt agrees to therapy. Reported to nrsg pt needed pads and telemetry on after shower. Mental Status/Objective Patient Orientation: Person, Place, Time, Situation Therapy Code Descriptions/Definitions Functional [place] Measure: 0=Not Assessed/NA 4=Minimal Assistance 1=Total Assistance 5=Supervision or Setup 2=Maximal Assistance 6=Modified [place] 3=Moderate Assistance 7=Complete [place] Attachments: IV, Oxygen, Telemetry ADL-Treatment Pt agrees to shower. Pt ambulated to bathroom using FWW and assist with O2 tubing. Pt transferred to shower with SBA. Completed shower with supervision. Donned/doffed hospital gown by self. After set up, pt doffed underwear by self with supervision when standing to hike over hips. After therapy, pt sitting in recliner with call light/phone in reach. All needs met in room. Bathing (FIM): 5 Upper Body (FIM): 5 Lower Body Dressing (FIM): 5 Toileting (FIM): 5 Transfers (B, C, W/C) (FIM): 5 Toilet/Commode Transfer (FIM): 5 Shower Transfer(FIM): 5 OT Short Term Goals Short Term Goals 1=Demonstrate adherence to instructed precautions during ADL tasks. 2=Patient will verbalize/demonstrate understanding of assistive devices/modifications for ADL. 3=Patient will improve strength/tolerance for activity to enable patient to perform ADL's. 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 2=Patient will verbalize/demonstrate understanding of assistive devices/modifications for ADL. 3=Patient will improve strength/tolerance for activity to enable patient to perform ADL's. OT Education/Plan Problem List/Assessment Assessment: Decreased Activ Tolerance Pt to benefit from skilled OT intervention for ADL training to increase level of independence and allow safe return home. Discharge Recommendations Plan/Recommendations: Continue POC Treatment Plan/Plan of Care Patient would benefit from OT for education, treatment and training to promote independence in ADL's, mobility, safety and/or upper extremity function for ADL's. Plan of Care: ADL Retraining, Functional Mobility, UE Funct Exercise/Act Treatment Duration: Dec 02, 2018 Frequency: 5 times per week Estimated Hrs Per Day: .25 hour per day Rehab Potential: Fair Time/GCodes Start Time: 10:50 Stop Time: 11:22 Total Time Billed (hr/min): 32 Billed Treatment Time 1 visit-ADL 2 (32 min) RADHA HUERTA Nov 29, 2018 11:46
[2018-11-29 12:00] VITALS: BP 162/81
--- NOTE | 2018-11-29 14:21 | Progress Note - Surgery ---
Subjective Time Seen by a Provider: 14:10 Subjective/Events-last exam Pt seen and examined, no new complaints and denies abdominal pain. She is no longer having any melanotic stool. Review of Systems General: No Chills, No Night Sweats; Fatigue, Malaise Pulmonary: No Dyspnea, No Cough Cardiovascular: No: Chest Pain, Palpitations Gastrointestinal: No: Nausea, Vomiting Focused Exam Time of Focused Exam: 16:53 Objective Exam Vital Signs Date Time Temp Pulse Resp B/P (MAP) Pulse Ox O2 Delivery O2 Flow Rate FiO2 11/29/18 12:51 93 11/29/18 12:00 98.0 95 18 162/81 (108) 95 Nasal Cannula 2.00 11/29/18 09:00 97.5 102 18 186/62 (103) 96 Nasal Cannula 2.00 11/29/18 07:00 89 11/29/18 03:59 97.6 93 18 155/91 (112) 98 Nasal Cannula 2.00 11/29/18 01:00 89 11/28/18 23:44 97.5 105 18 167/103 (124) 96 Nasal Cannula 2.00 11/28/18 20:46 98.4 97 160/84 98 Nasal Cannula 2.00 11/28/18 20:00 Nasal Cannula 2.00 11/28/18 20:00 99.1 98 18 160/84 (109) 100 Nasal Cannula 2.00 11/28/18 19:00 105 11/28/18 18:25 98.5 105 20 176/100 Nasal Cannula 2.50 11/28/18 18:10 98.5 102 20 175/93 98 Nasal Cannula 2.50 11/28/18 16:00 98.5 102 20 175/93 (120) 98 Nasal Cannula 2.50 I & O 11/29/18 07:00 Intake Total 2300 ml Balance 2300 ml Capillary Refill : Less Than 3 SecondsLess Than 3 Seconds General Appearance: No Apparent Distress, WD/WN, Chronically ill, Obese Neck: Normal Inspection, Non Tender, Supple Respiratory: Chest Non Tender, Lungs Clear, Normal Breath Sounds, No Accessory Muscle Use, No Respiratory Distress Cardiovascular: Regular Rate, Rhythm, No Edema, No Gallop, No JVD, No Murmur Gastrointestinal: normal bowel sounds, non tender, soft Extremity: Normal Capillary Refill, Normal Inspection, Normal Range of Motion, Non Tender, No Calf Tenderness, No Pedal Edema Neurologic/Psychiatric: Alert, Oriented x3, No Motor/Sensory Deficits, Normal Mood/Affect, line repairer II-XII Norm as Tested Skin: Pallor Results Lab Laboratory Tests 11/28/18 15:20: Glucometer 121H 11/28/18 19:32: Glucometer 154H 11/29/18 05:00: White Blood Count 9.0, Red Blood Count 3.26L, Hemoglobin 7.5L, Hematocrit 26L, Mean Corpuscular Volume 79L, Mean Corpuscular Hemoglobin 23L, Mean Corpuscular Hemoglobin Concent 29L, Red Cell Distribution Width 20.9H, Platelet Count 249, Mean Platelet Volume 10.6H, Neutrophils (%) (Auto) 77H, Lymphocytes (%) (Auto) 1 3, Monocytes (%) (Auto) 7, Eosinophils (%) (Auto) 2, Basophils (%) (Auto) 1, Neutrophils # (Auto) 6.9, Lymphocytes # (Auto) 1.2, Monocytes # (Auto) 0.6, Eosinophils # (Auto) 0.2, Basophils # (Auto) 0.1, Sodium Level 141, Potassium Level 4.1, Chloride Level 110H, Carbon Dioxide Level 22, Anion Gap 9, Blood Urea Nitrogen 14, Creatinine 1.61H, Estimat Glomerular Filtration Rate 33, BUN/Creatinine Ratio 9, Glucose Level 103, Calcium Level 8.7, Corrected Calcium 9.3, Total Bilirubin 0.2, Aspartate Amino Transf (AST/SGOT) 20, Alanine Aminotransferase (ALT/SGPT) 31, Alkaline Phosphatase 84, Total Protein 6.0L, Albumin 3.2 11/29/18 11:38: Lab Scanned Report Transfusion Reaction Form Microbiology 11/24/18 Blood Culture - Preliminary, Resulted No growth 11/24/18 Gram Stain - Final, Complete 11/24/18 Sputum Culture - Final, Complete Usual upper respiratory susan 11/24/18 Urine Culture - Final, Complete 3 or more isolates Assessment/Plan Assessment/Plan Assessment/Plan Anemia DM HTN Morbid Obesity UTI COPD Acute Renal Failure Pt still getting transfused and an Iron infusion has been ordered; Hemoglobin still only 7.5gm. She will need a work-up and since she is not going home will start with EGD tomorrow and then prep for colonoscopy after her EGD; unfortunately she ate a full breakfast and lunch today, therefore cannot do prep today. We did discuss risks and complications of EGD, not limited to pain, bleeding, infection and even esophageal perforation. All questions answered to her satisfaction. Clinical Quality Measures DVT/VTE Risk/Contraindication: Risk Factor Score Per Nursin RFS Level Per Nursing on Admit: 3=High ERIC AVENDAÑO DO Nov 29, 2018 14:21
[2018-11-29 16:16] VITALS: BP 153/74
[2018-11-29] MEDS ORDERED: cefTRIAXone 1,000 MG IV (ROCEPHIN) VIAL ONE (18:13)
[2018-11-29] MEDS ORDERED: WATER (STERILE) FOR INJECTION 10 ML ONE (18:13)
--- NOTE | 2018-11-29 18:35 | Cardiology Progress Note ---
Cardiology SOAP Progress Note Subjective: no cardiac symptoms. Objective: I&O/Vital Signs 11/30/18 11/30/18 11/30/18 11/30/18 07:00 08:16 09:00 12:00 Temp 98.4 97.8 Pulse 82 87 78 Resp 20 20 B/P (MAP) 168/94 (118) 170/96 (120) Pulse Ox 98 98 98 O2 Delivery Nasal Cannula Nasal Cannula Nasal Cannula O2 Flow Rate 2.50 2.50 2.50 11/30/18 11/30/18 11/30/18 11/30/18 12:05 12:10 12:15 12:20 Pulse 98 93 94 96 Resp 16 16 16 16 Pulse Ox 95 97 97 100 O2 Delivery OxyMask OxyMask OxyMask OxyMask O2 Flow Rate 10 10 10 3 11/30/18 11/30/18 11/30/18 12:41 12:56 16:20 Temp 98.3 Pulse 108 108 Resp 22 B/P (MAP) 198/93 (128) Pulse Ox 97 O2 Delivery OxyMask Nasal Cannula O2 Flow Rate 10 2.50 11/30/18 00:00 Intake Total 2270 ml Balance 2270 ml Weight (Pounds): 308 Weight (Ounces): 4.2 Weight (Calculated Kilograms): 139.102535 Constitutional: appears stated age, AAO x 3; No apparent distress; well- developed, well-nourished Respiratory: chest is bilaterally symmetric, lungs clear to auscultation Cardiovascular: regular rate-rhythm; No irregularly irregular, No extra beats, No parasternal heave is noted, No JVD, No edema, No bradycardia, No tachycardia, No point of maximal impulse, No cardiac thrills are palpable; S1 and S2; No gallop/S3, No gallop/S4, No diastolic murmur, No systolic murmur, No friction rub, No click, No other Gastrointestional: No tender, No soft, No round, No distended, No pulsatile mass, No organomegaly, No guarding, No rebound, No tenderness, No hernia, No mass, No audible bowel sounds, No abnormal bowel sounds, No abdominal bruits, No spleenomegaly, No other Extremities: No normal range of motion, No non-tender, No normal inspection, No pedal edema, No calf tenderness, No normal capillary refill, No pelvis stable, No calf tenderness, No inflammation, No pedal edema, No slow capillary refill, No swelling, No other, No abrasion, No clubbing, No cyanosis, No ecchymosis, No laceration, No no lower extremity edema bilateral, No significant edema, No tenderness, No wound Neurologic/Psychiatric: no motor/sensory deficits, alert, normal mood/affect, oriented x 3, power is 5/5 both on sides Skin: normal color, warm/dry Results/Procedures: Labs Laboratory Tests 11/29/18 20:47: Glucometer 109 11/30/18 06:30: White Blood Count 8.6, Red Blood Count 3.35L, Hemoglobin 7.6L, Hematocrit 27L, Mean Corpuscular Volume 80, Mean Corpuscular Hemoglobin 23L, Mean Corpuscular Hemoglobin Concent 28L, Red Cell Distribution Width 21.9H, Platelet Count 260, Mean Platelet Volume 10.3, Neutrophils (%) (Auto) 77H, Lymphocytes (%) (Auto) 15, Monocytes (%) (Auto) 6, Eosinophils (%) (Auto) 2, Basophils (%) (Auto) 1, Neutrophils # (Auto) 6.6, Lymphocytes # (Auto) 1.3, Monocytes # (Auto) 0.5, Eosinophils # (Auto) 0.2, Basophils # (Auto) 0.1, Sodium Level 142, Potassium Level 4.0, Chloride Level 108H, Carbon Dioxide Level 24, Anion Gap 10, Blood Ur ea Nitrogen 17, Creatinine 1.54H, Estimat Glomerular Filtration Rate 34, BUN/Creatinine Ratio 11, Glucose Level 97, Calcium Level 9.0, Corrected Calcium 9.5, Total Bilirubin 0.2, Aspartate Amino Transf (AST/SGOT) 15, Alanine Aminotransferase (ALT/SGPT) 27, Alkaline Phosphatase 85, Total Protein 6.3L, Albumin 3.4 11/30/18 09:06: Glucometer 95 Microbiology 11/24/18 Blood Culture - Final, Complete No growth 11/24/18 Gram Stain - Final, Complete 11/24/18 Sputum Culture - Final, Complete Usual upper respiratory susan 11/24/18 Urine Culture - Final, Complete 3 or more isolates A/P: Assessment/Dx: Shortness of breath, Diabetes, COPD, Sepsis Plan: Shortness of breath, likely due to COPD. Echocardiogram shows normal LV function. Likely mild diastolic dysfunction. negative nuclear stress test done 11/29/2018. Diabetes, COPD, Sepsis. Defer to Dr. Reese. Thank you for your consultation. Please call me if you have any questions. Kp Espinoza MD, FACP, FACC, FSCAI, FHRS, CCDS Interventional Cardiology Cardiac Electrophysiology Vascular Medicine and Endovascular Interventions Focused Exam Time of Focused Exam: 16:53 Kristina ESPINOZA MD Nov 29, 2018 18:35
[2018-11-29] MEDS: cefTRIAXone 1,000 MG/SWFI 10 ML IV PUSH IV SCH ×2 (18:37)
[2018-11-29 20:00] VITALS: BP 182/86
[2018-11-29] MEDS: ACETAMINOPHEN 325 MG TABLET PO PRN (20:43)
[2018-11-29] MEDS: MELATONIN 3 MG TABLET PO PRN (20:43)
[2018-11-29] MEDS: PROGESTERONE 200 MG CAP (PROMETRIUM) NON-FORMULARY PO SCH (20:44)
[2018-11-29] MEDS: cloNIDine 0.1 MG (CATAPRES) TAB PO PRN ×2 (20:44)
[2018-11-29] MEDS: GABAPENTIN 300 MG (NEURONTIN) CAP PO SCH (20:44)
[2018-11-30] VITALS (11 sets, daily range): BP systolic 116–198; BP diastolic 69–117
[2018-11-30] MEDS: NS IV 500 ML 500 ML IV SCH ×3 (01:57→20:08)
[2018-11-30 07:02] LABS: BASOPHILS # (AUTO) 0.1 10^3/uL (0.0-0.1); BASOPHILS % (AUTO) 1 % (0-10); EOSINOPHILS # (AUTO) 0.2 10^3/uL (0.0-0.3); EOSINOPHILS % (AUTO) 2 % (0-10); HEMATOCRIT 27 % (35-52); HEMOGLOBIN 7.6 G/DL (11.5-16.0); LYMPHOCYTES # (AUTO) 1.3 X 10^3 (1.0-4.0); LYMPHOCYTES % (AUTO) 15 % (12-44); MEAN CORPUSCULAR HEMOGLOBIN 23 PG (25-34); MEAN CORPUSCULAR HGB CONC 28 G/DL (32-36); MEAN CORPUSCULAR VOLUME 80 FL (80-99); MEAN PLATELET VOLUME 10.3 FL (7.4-10.4); MONOCYTES # (AUTO) 0.5 X 10^3 (0.0-1.0); MONOCYTES % (AUTO) 6 % (0-12); NEUTROPHILS # (AUTO) 6.6 X 10^3 (1.8-7.8); NEUTROPHILS % (AUTO) 77 % (42-75); PLATELET COUNT 260 10^3/uL (130-400); RED CELL DISTRIBUTION WIDTH 21.9 % (10.0-14.5); WHITE BLOOD COUNT 8.6 10^3/uL (4.3-11.0)
[2018-11-30 07:20] LABS: ALBUMIN 3.4 GM/DL (3.2-4.5); BILIRUBIN,TOTAL 0.2 MG/DL (0.1-1.0); CREATININE SERUM 1.54 MG/DL (0.60-1.30); TOTAL PROTEIN 6.3 GM/DL (6.4-8.2)
--- NOTE | 2018-11-30 07:46 | Pulmonary Progress Note ---
Subjective Time Seen by a Provider: 08:23 Subjective/Events-last exam No complications noted. Sepsis Event Evaluation Height, Weight, BMI Height: 5'3.00" Weight: 306lbs. 0.0oz. 138.911235os; 51.7 BMI Method:Stated Focused Exam Time of Focused Exam: 16:53 Exam Exam Vital Signs Date Time Temp Pulse Resp B/P (MAP) Pulse Ox O2 Delivery O2 Flow Rate FiO2 11/30/18 07:00 82 11/30/18 04:00 96.5 87 20 116/75 (89) 96 Nasal Cannula 2.50 11/30/18 01:00 77 11/30/18 00:00 96.8 90 19 137/81 (99) 97 Nasal Cannula 2.50 11/29/18 21:00 98 Nasal Cannula 2.50 11/29/18 20:10 Nasal Cannula 2.50 11/29/18 20:00 98.6 96 18 182/86 (118) 98 Nasal Cannula 2.00 11/29/18 19:00 94 11/29/18 16:57 Nasal Cannula 2.00 11/29/18 16:16 99.1 97 20 153/74 (100) 97 Nasal Cannula 2.00 11/29/18 12:51 93 11/29/18 12:00 98.0 95 18 162/81 (108) 95 Nasal Cannula 2.00 11/29/18 09:00 Nasal Cannula 2.00 11/29/18 09:00 97.5 102 18 186/62 (103) 96 Nasal Cannula 2.00 I & O 11/30/18 07:00 Intake Total 2520 ml Balance 2520 ml Height & Weight Height: 5'3.00" Weight: 306lbs. 0.0oz. 138.008854kx; 51.7 BMI Method:Stated General Appearance: No Apparent Distress, WD/WN, Anxious, Chronically ill, Obese, Other (improved) Neck: Normal Inspection, Non Tender, Supple Respiratory: Chest Non Tender, Lungs Clear, Normal Breath Sounds, No Accessory Muscle Use, No Respiratory Distress Cardiovascular: Regular Rate, Rhythm, No Edema, No Gallop, No JVD, No Murmur Capillary Refill: Less Than 3 Seconds Gastrointestinal: normal bowel sounds, non tender, soft Extremity: Normal Capillary Refill, Normal Inspection, Normal Range of Motion, Non Tender, No Calf Tenderness, No Pedal Edema Neurologic/Psychiatric: Alert, Oriented x3, No Motor/Sensory Deficits, Normal Mood/Affect, cigarette maker II-XII Norm as Tested Skin: Pallor Lymphatic: No Adenopathy Results Lab Laboratory Tests 11/29/18 05:00 11/30/18 06:30 Assessment/Plan Assessment/Plan Sepsis with UTI -Rocephin -Dacosta cultures Anemia s/p transfusion -Monitor Acute renal failure -Monitor Obesity with JACK -Noncompliant CPAP therapy in past Medical noncompliance -Pt refused CPAP therapy and home oxygen in the past Hx of tobacco use CARMEN ABDALLA DO Nov 30, 2018 07:46
[2018-11-30] MEDS: FLUoxetine HCL 20 MG (PROzac) CAP PO SCH (08:52)
[2018-11-30] MEDS: PANTOPRAZOLE 20 MG TABLET (PROTONIX) PO SCH ×2 (08:52→20:27)
[2018-11-30] MEDS: lisINopril 20 MG (PRINIVIL) TABLET PO SCH (08:53)
[2018-11-30] MEDS: SENNA W/DOCUSATE (SENOKOT S) TABLET PO SCH ×2 (08:53→20:27)
[2018-11-30] MEDS: inSUlin ASPART (NovoLOG) 1 UNIT/0.01 ML (CHARGE PER UNIT) SC SCH ×2 (09:11→21:21)
--- NOTE | 2018-11-30 10:22 | Progress Note - Hospitalist ---
Subjective HPI/CC On Admission Date Seen by Provider: Nov 30, 2018 Time Seen by Provider: 09:30 Subjective/Events-last exam EGD to be performed today by Dr. Deng. Hgb remains at 7.6. Headache remains. Pt has a dry mouth but NPO for procedure. Reviewed labs ad meds. Pt improving and going in the right direction. Review of Systems General: Fatigue Pulmonary: Dyspnea Focused Exam Time of Focused Exam: 16:53 Objective Exam Vital Signs Vital Signs Date Time Temp Pulse Resp B/P (MAP) Pulse Ox O2 Delivery O2 Flow Rate FiO2 11/30/18 20:09 98.5 107 22 192/117 (142) 97 Nasal Cannula 2.50 Capillary Refill : Less Than 3 SecondsLess Than 3 Seconds General Appearance: No Apparent Distress, WD/WN, Anxious, Chronically ill, Obese, Other (improved) Neck: Normal Inspection, Non Tender, Supple Respiratory: Chest Non Tender, Lungs Clear, Normal Breath Sounds, No Accessory Muscle Use, No Respiratory Distress Cardiovascular: Regular Rate, Rhythm, No Edema, No Gallop, No JVD, No Murmur Gastrointestinal: No Pulsatile Mass, Non Tender, Soft Extremity: Normal Capillary Refill, Normal Inspection, Normal Range of Motion, Non Tender, No Calf Tenderness, No Pedal Edema Neurologic/Psychiatric: Alert, Oriented x3, No Motor/Sensory Deficits, Normal Mood/Affect, keysmith II-XII Norm as Tested Skin: Pallor Lymphatic: No Adenopathy Results/Procedures Lab Laboratory Tests 11/30/18 06:30 Patient resulted labs reviewed. Assessment/Plan Assessment and Plan Assess & Plan/Chief Complaint Assessment: (1) Sepsis secondary to UTI (2) Acute renal failure (3) Hypoxia (4) Microcytic anemia consulting Dr Gamboa (5) Dehydration (6) JACK (obstructive sleep apnea) (7) DVT prophylaxis (8) Melena-consulting Dr Deng (9) Dyspnea consulting Cardiology and Pulmonology and checking BNP- improved today Plan: Sowmya consult appreciated set for EGD today Hold Lovenox Dr Espinoza consult and check BNP Transfuse per Dr Gamboa Monitor closely Diagnosis/Problems Diagnosis/Problems (1) Sepsis secondary to UTI Status: Acute (2) Transfusion of blood during current hospitalisation Status: Acute (3) JACK (obstructive sleep apnea) Status: Chronic (4) Hypoxia Status: Acute (5) Microcytic anemia Status: Acute (6) Acute renal failure Status: Acute Qualifiers: Acute renal failure type: unspecified Qualified Codes: N17.9 - Acute kidney failure, unspecified (7) Dehydration Status: Acute Clinical Quality Measures DVT/VTE Risk/Contraindication: Risk Factor Score Per Nursin RFS Level Per Nursing on Admit: 3=High TU SOLIS DO Nov 30, 2018 10:22
[2018-11-30] MEDS ORDERED: PROPOFOL INJECTION 50 ML IV ONE (11:37)
[2018-11-30] MEDS ORDERED: HURRICAINE EXT TUBE (BENZOCAINE) ONE (11:47)
[2018-11-30] MEDS ORDERED: NS IV 500 ML 500 ML ONE (11:49)
[2018-11-30] MEDS ORDERED: MIDAZOLAM 2 MG/2 ML (VERSED) VIAL ONE (11:52)
--- NOTE | 2018-11-30 11:58 | Progress Note - Surgery ---
Subjective Time Seen by a Provider: 11:40 Subjective/Events-last exam Pt seen and examined, no new complaints. Denies melena. Her main complaint is she is thirsty. Review of Systems General: No Chills, No Night Sweats; Fatigue, Malaise Pulmonary: No Dyspnea, No Cough Cardiovascular: No: Chest Pain, Palpitations Gastrointestinal: No: Nausea, Vomiting Focused Exam Time of Focused Exam: 16:53 Objective Exam Vital Signs Date Time Temp Pulse Resp B/P (MAP) Pulse Ox O2 Delivery O2 Flow Rate FiO2 11/30/18 09:00 98 Nasal Cannula 2.50 11/30/18 08:16 98.4 87 20 168/94 (118) 98 Nasal Cannula 2.50 11/30/18 07:00 82 11/30/18 04:00 96.5 87 20 116/75 (89) 96 Nasal Cannula 2.50 11/30/18 01:00 77 11/30/18 00:00 96.8 90 19 137/81 (99) 97 Nasal Cannula 2.50 11/29/18 21:00 98 Nasal Cannula 2.50 11/29/18 20:10 Nasal Cannula 2.50 11/29/18 20:00 98.6 96 18 182/86 (118) 98 Nasal Cannula 2.00 11/29/18 19:00 94 11/29/18 16:57 Nasal Cannula 2.00 11/29/18 16:16 99.1 97 20 153/74 (100) 97 Nasal Cannula 2.00 11/29/18 12:51 93 11/29/18 12:00 98.0 95 18 162/81 (108) 95 Nasal Cannula 2.00 I & O 11/30/18 07:00 Intake Total 2520 ml Balance 2520 ml Capillary Refill : Less Than 3 SecondsLess Than 3 Seconds General Appearance: No Apparent Distress, Chronically ill, Obese Respiratory: Chest Non Tender, Lungs Clear, Normal Breath Sounds, No Accessory Muscle Use, No Respiratory Distress Cardiovascular: Regular Rate, Rhythm, No Edema, No Gallop, No JVD, No Murmur Gastrointestinal: normal bowel sounds, non tender, soft Extremity: No Calf Tenderness, No Pedal Edema Neurologic/Psychiatric: Alert, Oriented x3, No Motor/Sensory Deficits, Normal Mood/Affect, childcare administrator II-XII Norm as Tested Skin: Pallor Results Lab Laboratory Tests 11/29/18 15:41: Glucometer 131H 11/29/18 20:47: Glucometer 109 11/30/18 06:30: White Blood Count 8.6, Red Blood Count 3.35L, Hemoglobin 7.6L, Hematocrit 27L, Mean Corpuscular Volume 80, Mean Corpuscular Hemoglobin 23L, Mean Corpuscular Hemoglobin Concent 28L, Red Cell Distribution Width 21.9H, Platelet Count 260, Mean Platelet Volume 10.3, Neutrophils (%) (Auto) 77H, Lymphocytes (%) (Auto) 15, Monocytes (%) (Auto) 6, Eosinophils (%) (Auto) 2, Basophils (%) (Auto) 1, Neutrophils # (Auto) 6.6, Lymphocytes # (Auto) 1.3, Monocytes # (Auto) 0.5, Eosinophils # (Auto) 0.2, Basophils # (Auto) 0.1, Sodium Level 142, Potassium Level 4.0, Chloride Level 108H, Carbon Dioxide Level 24, Anion Gap 10, Blood Urea Nitrogen 17, Creatinine 1.54H, Estimat Glomerular Filtration Rate 34, BUN/Creatinine Ratio 11, Glucose Level 97, Calcium Level 9.0, Corrected Calcium 9.5, Total Bilirubin 0.2, Aspartate Amino Transf (AST/SGOT) 15, Alanine Aminotransferase (ALT/SGPT) 27, Alkaline Phosphatase 85, Total Protein 6.3L, Albumin 3.4 11/30/18 09:06: Glucometer 95 Microbiology 11/24/18 Blood Culture - Final, Complete No growth 11/24/18 Gram Stain - Final, Complete 11/24/18 Sputum Culture - Final, Complete Usual upper respiratory susan 11/24/18 Urine Culture - Final, Complete 3 or more isolates Assessment/Plan Assessment/Plan Assessment/Plan Anemia DM HTN Morbid Obesity UTI COPD Acute Renal Failure Plan is EGD today and then prep for colonoscopy after her EGD. We did discuss risks and complications of EGD, not limited to pain, bleeding, infection and even esophageal perforation. All questions answered to her satisfaction. Clinical Quality Measures DVT/VTE Risk/Contraindication: Risk Factor Score Per Nursin RFS Level Per Nursing on Admit: 3=High ERIC AVENDAÑO DO Nov 30, 2018 11:58
--- NOTE | 2018-11-30 12:11 | Progress Note-Post Operative ---
Post-Operative Progess Note Surgeon (s)/Electroplating Technician (s) Surgeon ERIC AVENDAÑO DO Electroplating Technician: none Pre-Operative Diagnosis Anemia, GI bleed Post-Operative Diagnosis Gastritis Esophagitis Gastric Polyps Small Hiatal hernia Procedure & Operative Findings Date of Procedure 11/30/18 Procedure Performed/Findings EGD with bx Anesthesia Type IV sedation by BODY JOINER Estimated Blood Loss Estimated blood loss (mL): scant Specimens/Packing Specimens Removed Antral bx Cardia bx GE jxn bx ERIC AVENDAÑO DO Nov 30, 2018 12:11
[2018-11-30] MEDS ORDERED: NS IV 500 ML 500 ML IV PRN (12:53)
[2018-11-30] MEDS ORDERED: BISACODYL 5 MG (DULCOLAX) TABLET PO ONE ×2 (13:00→15:00)
[2018-11-30] MEDS ORDERED: HURRICAINE EXT TUBE (BENZOCAINE) XX PRN (13:00)
--- NOTE | 2018-11-30 14:04 | Occupational Ther Daily Note ---
OT Current Status-Daily Note Subjective Pt alert, sitting in recliner. Pt stated that she had procedure earlier today and that she was tired. Pt to have colonoscopy tomorrow, per pt. Pt agrees to therapy. Mental Status/Objective Patient Orientation: Person, Place, Time, Situation Therapy Code Descriptions/Definitions Functional [place] Measure: 0=Not Assessed/NA 4=Minimal Assistance 1=Total Assistance 5=Supervision or Setup 2=Maximal Assistance 6=Modified [place] 3=Moderate Assistance 7=Complete [place] ADL-Treatment Pt declined shower due to fatigue. Pt did want to change gown. Pt able to change gown by self. Pt demonstrates good UE AROM and strength during functional activities. After therapy, pt sitting in recliner with call light/phone in reach. All needs met in room. OT Short Term Goals Short Term Goals 1=Demonstrate adherence to instructed precautions during ADL tasks. 2=Patient will verbalize/demonstrate understanding of assistive devices/modifications for ADL. 3=Patient will improve strength/tolerance for activity to enable patient to perform ADL's. OT Mcc Goals Mcc Goals Time Frame: Dec 02, 2018 Bathing(FIM): 5 Upper Body Dressing(FIM): 6 Lower Body Dressing(FIM): 6 Toileting(FIM): 6 Toilet/Commode Transfer(FIM): 6 Additional Goals: 2-Verbalize Understanding, 3-ImproveStrength/Kelly 1=Demonstrate adherence to instructed precautions during ADL tasks. 2=Patient will verbalize/demonstrate understanding of assistive devices/modifications for ADL. 3=Patient will improve strength/tolerance for activity to enable patient to perform ADL's. OT Education/Plan Problem List/Assessment Assessment: Decreased Activ Tolerance, Impaired Self-Care Skills Pt to benefit from skilled OT intervention for ADL training to increase level of independence and allow safe return home. Discharge Recommendations Plan/Recommendations: Continue POC Treatment Plan/Plan of Care Patient would benefit from OT for education, treatment and training to promote independence in ADL's, mobility, safety and/or upper extremity function for ADL' s. Plan of Care: ADL Retraining, Functional Mobility, UE Funct Exercise/Act Treatment Duration: Dec 02, 2018 Frequency: 5 times per week Estimated Hrs Per Day: .25 hour per day Rehab Potential: Fair Time/GCodes Start Time: 13:46 Stop Time: 13:56 Total Time Billed (hr/min): 10 Billed Treatment Time 1 visit-FA 1 (10 min) RADHA HUERTA Nov 30, 2018 14:04
--- NOTE | 2018-11-30 14:16 | Anesthesia-General Post-Op ---
MAC Patient Condition Mental Status/LOC: Same as Preop Cardiovascular: Satisfactory Nausea/Vomiting: Absent Respiratory: Satisfactory Pain: Controlled Complications: Absent Post Op Complications Complications None Follow Up Care/Instructions Patient Instructions None needed. Anesthesiology Discharge Order Discharge Order Patient is doing well, no complaints, stable vital signs, no apparent adverse anesthesia problems. No complications reported per nursing. SHIRLEY KUMAR CRNA Nov 30, 2018 14:16
--- NOTE | 2018-11-30 15:13 | OPERATIVE REPORT ---
DATE OF SERVICE: 11/30/2018 PREOPERATIVE DIAGNOSES: 1. Anemia. 2. Gastrointestinal bleed. POSTOPERATIVE DIAGNOSES: 1. Gastritis. 2. Esophagitis. 3. Gastric polyps. 4. Small hiatal hernia. PROCEDURE: EGD with biopsy. SURGEON: Stephen Deng DO MESSAGE AND DELIVERY SERVICE PRICER: None. ANESTHESIA: IV sedation by the SITE COORDINATOR. SPECIMEN: One biopsy from the antrum, one biopsy from the cardia and then one biopsy from the GE junction. BLOOD LOSS: Scant. FLUIDS: Per anesthesia. POSTOPERATIVE CONDITION: Stable. INDICATION FOR PROCEDURE: The patient is a 58-year-old female, who has profound anemia with Hemoccult positive and melanotic stool. She has never had a workup for this. FINDINGS: The patient had some mild gastritis, mild esophagitis, could see some changes at the GE junction and then a lot of gastric polyps and a small hiatal hernia. PROCEDURE NOTE: After informed consent was obtained, the patient was brought to the endoscopy suite and placed in the left lateral decubitus position. She was administered IV sedation by the SITE COORDINATOR, who then monitored her vitals the entire time, heart rate, blood pressure and pulse ox and the scope was inserted down the mouth through the esophagus into the stomach. Upon entering the stomach, I noted some very mild gastritis, took a picture, also on the way in, noted some changes at the GE junction and taken a picture there, pushed through the pylorus into the first and second portion of duodenum, they looked fine, picture was taken, pulled back into the antrum and then did a biopsy, then retroflexed the scope, saw a lot of polyps, gastric polyps, took a picture of these and then small, what looked like a small hiatal hernia. Backed the scope up, tried to get a biopsy of the GE junction while taking another biopsy of the cardia of the stomach just in the hiatal hernia area, so did another biopsy at the GE junction, then suctioned out the stomach and pulled the scope up the esophagus, did not see any other obvious pathology in the esophagus and removed the scope. The patient tolerated the procedure, recovered in endoscopy suite. Job ID: [id number] DocumentID: [id number] Dictated Date: 11/30/2018 12:16:08 Television Tube Inspector Date: 11/30/2018 15:13:02 Dictated By: STEPHEN DENG DO
[2018-11-30] MEDS ORDERED: POLYETHYLENE GLYCOL 17 GM (MIRALAX) PACK PO ONE (18:00)
[2018-11-30] MEDS ORDERED: WATER (STERILE) FOR INJECTION 10 ML ONE (18:10)
[2018-11-30] MEDS ORDERED: cefTRIAXone 1,000 MG IV (ROCEPHIN) VIAL ONE (18:10)
[2018-11-30] MEDS: IRON SUCROSE 200 MG/10 ML (VENOFER) VIAL IV SCH (18:32)
[2018-11-30] MEDS: cefTRIAXone 1,000 MG/SWFI 10 ML IV PUSH IV SCH ×2 (18:32)
[2018-11-30] MEDS: MELATONIN 3 MG TABLET PO PRN (20:27)
[2018-11-30] MEDS: cloNIDine 0.1 MG (CATAPRES) TAB PO PRN (20:27)
[2018-11-30] MEDS: ACETAMINOPHEN 325 MG TABLET PO PRN (20:27)
[2018-11-30] MEDS: GABAPENTIN 300 MG (NEURONTIN) CAP PO SCH (20:27)
[2018-11-30] MEDS: PROGESTERONE 200 MG CAP (PROMETRIUM) NON-FORMULARY PO SCH (20:28)
[2018-12-01 04:00] VITALS: BP_SYST 158
[2018-12-01 05:37] LABS: BASOPHILS # (AUTO) 0.1 10^3/uL (0.0-0.1); BASOPHILS % (AUTO) 1 % (0-10); EOSINOPHILS # (AUTO) 0.3 10^3/uL (0.0-0.3); EOSINOPHILS % (AUTO) 4 % (0-10); HEMATOCRIT 28 % (35-52); LYMPHOCYTES % (AUTO) 13 % (12-44); MEAN CORPUSCULAR HEMOGLOBIN 23 PG (25-34); MEAN CORPUSCULAR HGB CONC 28 G/DL (32-36); MEAN CORPUSCULAR VOLUME 81 FL (80-99); MEAN PLATELET VOLUME 10.5 FL (7.4-10.4); MONOCYTES # (AUTO) 0.6 X 10^3 (0.0-1.0); MONOCYTES % (AUTO) 7 % (0-12); NEUTROPHILS # (AUTO) 5.6 X 10^3 (1.8-7.8); NEUTROPHILS % (AUTO) 75 % (42-75); PLATELET COUNT 261 10^3/uL (130-400); RED CELL DISTRIBUTION WIDTH 22.1 % (10.0-14.5); WHITE BLOOD COUNT 7.4 10^3/uL (4.3-11.0)
[2018-12-01 06:02] LABS: ALBUMIN 3.5 GM/DL (3.2-4.5); BILIRUBIN,TOTAL 0.2 MG/DL (0.1-1.0); CALCIUM 9.3 MG/DL (8.5-10.1); CREATININE SERUM 1.48 MG/DL (0.60-1.30); POTASSIUM 3.8 MMOL/L (3.6-5.0); TOTAL PROTEIN 6.5 GM/DL (6.4-8.2)
[2018-12-01 08:00] VITALS: BP 150/78
[2018-12-01] MEDS: inSUlin ASPART (NovoLOG) 1 UNIT/0.01 ML (CHARGE PER UNIT) SC SCH (09:24)
[2018-12-01] MEDS: NS IV 500 ML 500 ML IV SCH (09:25)
[2018-12-01] MEDS ORDERED: LISI-552 PO (10:43)
[2018-12-01] MEDS ORDERED: GLIP5TAB13 PO (10:45)
--- NOTE | 2018-12-01 10:46 | Discharge Summary ---
Diagnosis/Chief Complaint Date of Admission Nov 24, 2018 at 17:10 Date of Discharge Discharge Date: Dec 01, 2018 Discharge Diagnosis (1) Sepsis secondary to UTI Status: Acute (2) Transfusion of blood during current hospitalisation Status: Acute (3) JACK (obstructive sleep apnea) Status: Chronic (4) Hypoxia Status: Acute (5) Microcytic anemia Status: Acute (6) Acute renal failure Status: Acute (7) Dehydration Status: Acute Discharge Summary Discharge Physical Exam Allergies: Coded Allergies: codeine (Verified Adverse Reaction, Unknown, 11/24/18) Vitals & I&Os Vital Signs Date Time Temp Pulse Resp B/P (MAP) Pulse Ox O2 Delivery O2 Flow Rate FiO2 12/01/18 11:35 98 2.50 12/01/18 09:30 Nasal Cannula 12/01/18 08:00 98.7 89 20 150/78 (102) General Appearance: No Apparent Distress, WD/WN, Chronically ill, Obese Respiratory: Chest Non Tender, Lungs Clear, Normal Breath Sounds, No Accessory Muscle Use, No Respiratory Distress Cardiovascular: Regular Rate, Rhythm, No Edema, No Gallop, No JVD, No Murmur, Normal Peripheral Pulses Neurologic/Psychiatric: Alert, Oriented x3, No Motor/Sensory Deficits, Normal Mood/Affect Hospital Course Was the Problem List Reviewed?: Yes Hospital course: Patient had a lengthy hospital course for 7 days inpatient status due to acute renal failure with severe anemia requiring hematology consultation in general surgery consultation which resulted in a total of 3 units of blood transfused along with iron supplementation with iron infusions along with Dr. Og pulmonology consultation for untreated sleep apnea and cardiology consultation for volume overload. Patient did undergo EGD showing gastritis but no evidence of any type of blood loss causing the melena and colonoscopy was performed at day of discharge by Dr. Deng. Patient did meet criteria for oxygen supplementation likely that is more of a chronic issue since she does not treat her sleep apnea with sleep apnea machine at home on a chronic basis so that was set up at discharge and no evidence of any pathological bacteria on UA so Rocephin has been discontinued during the hospital course. Overall she will have close follow-up with [facility] along with hematology follow-up and will be monitor closely multiple meds were adjusted at time of discharge due to the renal failure when she had presentation to the ER and she will be monitor closely for hemoglobin and creatinine abnormalities. Labs (last 24 hrs) Laboratory Tests 11/30/18 21:15: Glucometer 118H 12/01/18 04:59: White Blood Count 7.4, Red Blood Count 3.48L, Hemoglobin 8.0L, Hematocrit 28L, Mean Corpuscular Volume 81, Mean Corpuscular Hemoglobin 23L, Mean Corpuscular Hemoglobin Concent 28L, Red Cell Distribution Width 22.1H, Platelet Count 261, Mean Platelet Volume 10.5H, Neutrophils (%) (Auto) 75, Lymphocytes (%) (Auto) 13, Monocytes (%) (Auto) 7, Eosinophils (%) (Auto) 4, Basophils (%) (Auto) 1, Neutrophils # (Auto) 5.6, Lymphocytes # (Auto) 1.0, Monocytes # (Auto) 0.6, Eosinophils # (Auto) 0.3, Basophils # (Auto) 0.1, Sodium Level 142, Potassium Level 3.8, Chloride Level 107, Carbon Dioxide Level 24, Anion Gap 11, Blood Urea Nitrogen 15, Creatinine 1.48H, Estimat Glomerular Filtration Rate 36, BUN/Creatinine Ratio 10, Glucose Level 93, Calcium Level 9.3, Corrected Calcium 9.7, Total Bilirubin 0.2, Aspartate Amino Transf (AST/SGOT) 16, Alanine Aminotransferase (ALT/SGPT) 26, Alkaline Phosphatase 85, Total Protein 6.5, Albumin 3.5 12/01/18 09:41: Glucometer 85 Microbiology 11/24/18 Blood Culture - Final, Complete No growth 11/29/18 MRSA Screen - Final, Complete MRSA not isolated 11/24/18 Urine Culture - Final, Complete 3 or more isolates Patient resulted labs reviewed. Pending Labs Laboratory Tests 12/01/18 04:59: White Blood Count 7.4, Red Blood Count 3.48, Hemoglobin 8.0, Hematocrit 28, Mean Corpuscular Volume 81, Mean Corpuscular Hemoglobin 23, Mean Corpuscular Hemoglobin Concent 28, Red Cell Distribution Width 22.1, Platelet Count 261, Mean Platelet Volume 10.5, Neutrophils (%) (Auto) 75, Lymphocytes (%) (Auto) 13, Monocytes (%) (Auto) 7, Eosinophils (%) (Auto) 4, Basophils (%) (Auto) 1, Neutrophils # (Auto) 5.6, Lymphocytes # (Auto) 1.0, Monocytes # (Auto) 0.6, Eosinophils # (Auto) 0.3, Basophils # (Auto) 0.1, Sodium Level 142, Potassium Level 3.8, Chloride Level 107, Carbon Dioxide Level 24, Anion Gap 11, Blood Urea Nitrogen 15, Creatinine 1.48, Estimat Glomerular Filtration Rate 36, BUN/Creatinine Ratio 10, Glucose Level 93, Calcium Level 9.3, Corrected Calcium 9.7, Total Bilirubin 0.2, Aspartate Amino Transf (AST/SGOT) 16, Alanine Aminotransferase (ALT/SGPT) 26, Alkaline Phosphatase 85, Total Protein 6.5, Alb umin 3.5 12/01/18 09:41: Glucometer 85 Discussion & Recommendations Discharge Planning: <30 minutes discharge planning Discharge Home Medications: Active Scripts Active Glipizide 5 Mg Tablet 2.5 Mg PO DAILY Lisinopril 20 Mg Tablet 20 Mg PO DAILY Reported Vitamin D-3 (Cholecalciferol (Vitamin D3)) 2,000 Unit Tablet 2,000 Unit PO DAILY Multivitamins (Multivitamin) 1 Each Tablet 1 Tab PO DAILY Aspirin EC (Aspirin) 81 Mg Tablet.dr 81 Mg PO HS Allopurinol 300 Mg Tablet 300 Mg PO DAILY Gabapentin 300 Mg Capsule 300 Mg PO HS Glipizide 5 Mg Tablet 5 Mg PO DAILY Lisinopril-Hctz 20-12.5 mg Tab (Lisinopril/Hydrochlorothiazide) 1 Each Tablet 1 Tab PO DAILY Omeprazole 20 Mg Capsule.dr 20 Mg PO HS Potassium Chloride 20 Meq Tab.er.prt 20 Meq PO BID Metformin HCl 500 Mg Tablet 500 Mg PO BID Fluoxetine HCl 40 Mg Capsule 40 Mg PO DAILY Progesterone (Progesterone,Micronized) 200 Mg Capsule 200 Mg PO HS Instructions to patient/family Please see electronic discharge instructions given to patient. Clinical Quality Measures DVT/VTE Risk/Contraindication: Risk Factor Score Per Nursin RFS Level Per Nursing on Admit: 3=High Problem Qualifiers (1) Acute renal failure: Acute renal failure type: unspecified Qualified Codes: N17.9 - Acute kidney failure, unspecified TU SOLIS DO Dec 01, 2018 10:46
--- NOTE | 2018-12-01 11:51 | NUR ---
Patient was working with PT/OT and desatted to 88% on RA and O2 was added to patient and it took 2 L NC to get O2 sat back up 90%.
--- NOTE | 2018-12-01 11:53 | Occupational Ther Daily Note ---
OT Current Status-Daily Note Subjective Pt alert, sitting in recliner. Pt agrees to therapy. Pt to have colonoscopy around noon today. Mental Status/Objective Patient Orientation: Person, Place, Time, Situation Therapy Code Descriptions/Definitions Functional [place] Measure: 0=Not Assessed/NA 4=Minimal Assistance 1=Total Assistance 5=Supervision or Setup 2=Maximal Assistance 6=Modified [place] 3=Moderate Assistance 7=Complete [place] Other Treatment Pt wants shower later this afternoon, she will ask nrsg to do it. Medium resistance theraband exercises completed requiring the skilled instruction and monitoring for correct technique. Due to pain in R shldr, pt completed exercises against gravity while using medium resistance theraband with L UE. 1 set 10 reps of 4 exercises completed. Pt's c/o fatigue with exercises and incre ased soreness with R shldr with movement. After therapy, pt sitting in recliner with call light/phone in reach. All needs met in room. OT Short Term Goals Short Term Goals 1=Demonstrate adherence to instructed precautions during ADL tasks. 2=Patient will verbalize/demonstrate understanding of assistive devices/modifications for ADL. 3=Patient will improve strength/tolerance for activity to enable patient to perform ADL's. OT Senior Php Developer Goals Fdc Goals Time Frame: Dec 02, 2018 Bathing(FIM): 5 Upper Body Dressing(FIM): 6 Lower Body Dressing(FIM): 6 Toileting(FIM): 6 Toilet/Commode Transfer(FIM): 6 Additional Goals: 2-Verbalize Understanding, 3-ImproveStrength/Kelly 1=Demonstrate adherence to instructed precautions during ADL tasks. 2=Patient will verbalize/demonstrate understanding of assistive d evices/modifications for ADL. 3=Patient will improve strength/tolerance for activity to enable patient to perform ADL's. OT Education/Plan Problem List/Assessment Assessment: Decreased Activ Tolerance, Decreased UE Strength Pt to benefit from skilled OT intervention for ADL training to increase level of independence and allow safe return home. Discharge Recommendations Plan/Recommendations: Continue POC Treatment Plan/Plan of Care Patient would benefit from OT for education, treatment and training to promote independence in ADL's, mobility, safety and/or upper extremity function for ADL's. Plan of Care: ADL Retraining, Functional Mobility, UE Funct Exercise/Act Treatment Duration: Dec 02, 2018 Frequency: 5 times per week Estimated Hrs Per Day: .25 hour per day Rehab Potential: Fair Time/GCodes Start Time: 11:30 Stop Time: 11:50 Total Time Billed (hr/min): 20 Billed Treatment Time 1 visit-EX 1 (20 min) RADHA HUERTA Dec 01, 2018 11:53
[2018-12-01 12:00] VITALS: BP 162/96
--- NOTE | 2018-12-01 12:42 | Cardiology Progress Note ---
Cardiology SOAP Progress Note Subjective: No cardiac symptoms. Objective: I&O/Vital Signs 12/01/18 12/01/18 12/01/18 12/01/18 01:00 04:00 07:00 08:00 Temp 97.0 98.7 Pulse 76 17 102 89 Resp 18 20 B/P (MAP) 158/ 150/78 (102) Pulse Ox 97 97 O2 Delivery Nasal Cannula Nasal Cannula O2 Flow Rate 2.50 2.50 12/01/18 12/01/18 12/01/18 08:00 09:30 11:35 Pulse Ox 98 O2 Delivery Nasal Cannula Nasal Cannula O2 Flow Rate 2.50 2.50 2.50 12/01/18 00:00 Intake Total 3450 ml Balance 3450 ml Weight (Pounds): 303 Weight (Ounces): 0.0 Weight (Calculated Kilograms): [id number] Constitutional: appears stated age, AAO x 3; No apparent distress; well- developed, well-nourished Respiratory: chest is bilaterally symmetric, lungs clear to auscultation Cardiovascular: regular rate-rhythm; No irregularly irregular, No extra beats, No parasternal heave is noted, No JVD, No edema, No bradycardia, No tachycardia, No point of maximal impulse, No cardiac thrills are palpable; S1 and S2; No gallop/S3, No gallop/S4, No diastolic murmur, No systolic murmur, No friction rub, No click, No other Gastrointestional: No tender, No soft, No round, No distended, No pulsatile mass, No organomegaly, No guarding, No rebound, No tenderness, No hernia, No mass, No audible bowel sounds, No abnormal bowel sounds, No abdominal bruits, No spleenomegaly, No other Extremities: No normal range of motion, No non-tender, No normal inspection, No pedal edema, No calf tenderness, No normal capillary refill, No pelvis stable, No calf tenderness, No inflammation, No pedal edema, No slow capillary refill, No swelling, No other, No abrasion, No clubbing, No cyanosis, No ecchymosis, No laceration, No no lower extremity edema bilateral, No significant edema, No tenderness, No wound Neurologic/Psychiatric: no motor/sensory deficits, alert, normal mood/affect, oriented x 3, power is 5/5 both on sides Skin: normal color, warm/dry Results/Procedures: Labs Laboratory Tests 11/30/18 21:15: Glucometer 118H 12/01/18 04:59: White Blood Count 7.4, Red Blood Count 3.48L, Hemoglobin 8.0L, Hematocrit 28L, Mean Corpuscular Volume 81, Mean Corpuscular Hemoglobin 23L, Mean Corpuscular Hemoglobin Concent 28L, Red Cell Distribution Width 22.1H, Platelet Count 261, Mean Platelet Volume 10.5H, Neutrophils (%) (Auto) 75, Lymphocytes (%) (Auto) 13, Monocytes (%) (Auto) 7, Eosinophils (%) (Auto) 4, Basophils (%) (Auto) 1, Neutrophils # (Auto) 5.6, Lymphocytes # (Auto) 1.0, Monocytes # (Auto) 0.6, Eosinophils # (Auto) 0.3, Basophils # (Auto) 0.1, Sodium Level 142, Potassium Level 3.8, Chloride Level 107, Carbon Dioxide Level 24, Anion Gap 11, Blood Urea Nitrogen 15, Creatinine 1.48H, Estimat Glomerular Filtration Rate 36, BUN/Creatinine Ratio 10, Glucose Level 93, Calcium Level 9.3, Corrected Calcium 9.7, Total Bilirubin 0.2, Aspartate Amino Transf (AST/SGOT) 16, Alanine Aminotransferase (ALT/SGPT) 26, Alkaline Phosphatase 85, Total Protein 6.5, A lbumin 3.5 12/01/18 09:41: Glucometer 85 Microbiology 11/24/18 Blood Culture - Final, Complete No growth 11/29/18 MRSA Screen - Final, Complete MRSA not isolated 11/24/18 Urine Culture - Final, Complete 3 or more isolates A/P: Assessment/Dx: Shortness of breath, Diabetes, COPD, Sepsis Plan: Shortness of breath, likely due to COPD. Echocardiogram shows normal LV function. Likely mild diastolic dysfunction. negative nuclear stress test done 11/29/2018. Diabetes, COPD, Sepsis. Defer to Dr. Reese. Thank you for your consultation. Please call me if you have any questions. Kp Espinoza MD, FACP, FACC, FSCAI, FHRS, CCDS Interventional Cardiology Cardiac Electrophysiology Vascular Medicine and Endovascular Interventions Focused Exam Time of Focused Exam: 16:53 Kristina ESPINOZA MD Dec 01, 2018 12:42 pm
--- NOTE | 2018-12-01 13:28 | NUR ---
CM/SS oxygen order and necessary information for set up were sent to [facility] in [place]. They will deliver portable oxygen this day to the patient room.
[2018-12-01] MEDS ORDERED: LACTATED RINGERS 1,000 ML IV ONE (14:50)
--- NOTE | 2018-12-01 15:18 | Progress Note - Surgery ---
Subjective Time Seen by a Provider: 11:51 Subjective/Events-last exam Pt seen and examined, no new complaints. She is very hungry and wants to get the colonoscopy done. Review of Systems General: Fatigue, Malaise Pulmonary: No Dyspnea, No Cough Cardiovascular: No: Chest Pain, Palpitations Gastrointestinal: No: Nausea Focused Exam Time of Focused Exam: 16:53 Objective Exam Vital Signs Date Time Temp Pulse Resp B/P (MAP) Pulse Ox O2 Delivery O2 Flow Rate FiO2 12/01/18 13:00 86 12/01/18 12:00 98.1 88 20 162/96 (118) 99 Nasal Cannula 2.50 12/01/18 11:35 98 2.50 12/01/18 09:30 Nasal Cannula 2.50 12/01/18 08:00 Nasal Cannula 2.50 12/01/18 08:00 98.7 89 20 150/78 (102) 97 Nasal Cannula 2.50 12/01/18 07:00 102 12/01/18 04:00 97.0 17 18 158/ 97 Nasal Cannula 2.50 12/01/18 01:00 76 11/30/18 23:50 97.2 84 18 143/82 (102) 97 Nasal Cannula 2.50 11/30/18 20:09 98.5 107 22 192/117 (142) 97 Nasal Cannula 2.50 11/30/18 20:00 Nasal Cannula 2.50 11/30/18 19:00 100 11/30/18 16:20 98.3 108 22 198/93 (128) 97 Nasal Cannula 2.50 I & O 12/01/18 07:00 Intake Total 3700 ml Balance 3700 ml Capillary Refill : Less Than 3 SecondsLess Than 3 Seconds General Appearance: No Apparent Distress, WD/WN, Chronically ill, Obese Neck: Normal Inspection, Non Tender, Supple Respiratory: Chest Non Tender, Lungs Clear, Normal Breath Sounds, No Accessory Muscle Use, No Respiratory Distress Cardiovascular: Regular Rate, Rhythm, No Edema, No Gallop, No JVD, No Murmur, Normal Peripheral Pulses Gastrointestinal: normal bowel sounds, non tender, soft Extremity: Non Tender, No Calf Tenderness, No Pedal Edema Neurologic/Psychiatric: Alert, Oriented x3, welfare manager II-XII Norm as Tested Skin: Pallor Lymphatic: No Adenopathy Results Lab Laboratory Tests 11/30/18 21:15: Glucometer 118H 12/01/18 04:59: White Blood Count 7.4, Red Blood Count 3.48L, Hemoglobin 8.0L, Hematocrit 28L, Mean Corpuscular Volume 81, Mean Corpuscular Hemoglobin 23L, Mean Corpuscular Hemoglobin Concent 28L, Red Cell Distribution Width 22.1H, Platelet Count 261, Mean Platelet Volume 10.5H, Neutrophils (%) (Auto) 75, Lymphocytes (%) (Auto) 13, Monocytes (%) (Auto) 7, Eosinophils (%) (Auto) 4, Basophils (%) (Auto) 1, Neutrophils # (Auto) 5.6, Lymphocytes # (Auto) 1.0, Monocytes # (Auto) 0.6, Eosinophils # (Auto) 0.3, Basophils # (Auto) 0.1, Sodium Level 142, Potassium Level 3.8, Chloride Level 107, Carbon Dioxide Level 24, Anion Gap 11, Blood Urea Nitrogen 15, Creatinine 1.48H, Estimat Glomerular Filtration Rate 36, BUN/Creatinine Ratio 10, Glucose Level 93, Calcium Level 9.3, Corrected Calcium 9.7, Total Bilirubin 0.2, Aspartate Amino Transf (AST/SGOT) 16, Alanine Aminotransferase (ALT/SGPT) 26, Alkaline Phosphatase 85, Total Protein 6.5, Albumin 3.5 12/01/18 09:41: Glucometer 85 12/01/18 14:08: Glucometer 75 Microbiology 11/24/18 Blood Culture - Final, Complete No growth 11/29/18 MRSA Screen - Final, Complete MRSA not isolated 11/24/18 Urine Culture - Final, Complete 3 or more isolates Assessment/Plan Assessment/Plan Assessment/Plan Anemia DM HTN Morbid Obesity UTI COPD Acute Renal Failure Plan is colonoscopy today; we did discuss risks and complications, not limited to pain, bleeding, infection and even intestinal perforation. All questions answered to her satisfaction. Clinical Quality Measures DVT/VTE Risk/Contraindication: Risk Factor Score Per Nursin RFS Level Per Nursing on Admit: 3=High ERIC AVENDAÑO DO Dec 01, 2018 15:18
[2018-12-01] MEDS ORDERED: MIDAZOLAM 2 MG/2 ML (VERSED) VIAL ONE (15:41)
[2018-12-01] MEDS ORDERED: proPOfol 200 MG/20 ML (DIPRIVAN) VIAL IV ONE (15:41)
[2018-12-01 16:15] VITALS: BP 149/77
--- NOTE | 2018-12-01 16:18 | Progress Note-Post Operative ---
Post-Operative Progess Note Surgeon (s)/Jig Mill Operator (s) Surgeon ERIC AVENDAÑO DO Jig Mill Operator: none Pre-Operative Diagnosis Anemia, GI bleed Post-Operative Diagnosis Same plus Diverticula, Internal hemorrhoids Procedure & Operative Findings Date of Procedure 12/01/18 Procedure Performed/Findings Colonoscopy Anesthesia Type IV sedation by Anesthesiologist Estimated Blood Loss Estimated blood loss (mL): none Specimens/Packing Specimens Removed none ERIC AVENDAÑO DO Dec 01, 2018 16:18
--- NOTE | 2018-12-01 16:20 | Anesthesia-General Post-Op ---
MAC Patient Condition Mental Status/LOC: Same as Preop Cardiovascular: Satisfactory Nausea/Vomiting: Absent Respiratory: Satisfactory Pain: Controlled Complications: Absent Post Op Complications Complications None Follow Up Care/Instructions Patient Instructions None needed. Anesthesiology Discharge Order Discharge Order Patient is doing well, no complaints, stable vital signs, no apparent adverse anesthesia problems. LAMINE MELENDEZ DO Dec 01, 2018 16:20
[2018-12-01 16:59] VITALS: BP 181/98
[2018-12-01] MEDS: FLUoxetine HCL 20 MG (PROzac) CAP PO SCH (17:05)
[2018-12-01] MEDS: ACETAMINOPHEN 325 MG TABLET PO PRN (17:05)
[2018-12-01] MEDS: lisINopril 20 MG (PRINIVIL) TABLET PO SCH (17:05)
[2018-12-01] MEDS: SENNA W/DOCUSATE (SENOKOT S) TABLET PO SCH (17:06)
[2018-12-01] MEDS ORDERED: LACTATED RINGERS 1,000 ML IV SCH (17:15)
[2018-12-01 17:45] VITALS: BP 181/98
--- NOTE | 2018-12-02 01:24 | OPERATIVE REPORT ---
DATE OF SERVICE: PREOPERATIVE DIAGNOSES: Anemia, gastrointestinal bleed. POSTOPERATIVE DIAGNOSES: Diverticula internal hemorrhoids, anemia, gastrointestinal bleed. PROCEDURE: Colonoscopy. SURGEON: Stephen Deng DO CLASS B TRUCK DRIVER: None. ANESTHESIA: IV sedation by anesthesiologist. SPECIMENS: None. BLOOD LOSS: None. FLUIDS: Per anesthesia. POSTOPERATIVE CONDITION: Stable. INDICATION FOR PROCEDURE: The patient is a 58-year-old female who has never had a colonoscopy, has had some profound anemia and noted melena and needed a workup. FINDINGS: The patient had some diverticula and some internal hemorrhoids, but no other obvious pathology. PROCEDURE NOTE: After informed consent was obtained, the patient was brought to the endoscopy suite and placed in the left lateral decubitus position. She was administered IV sedation by the anesthesiologist who then monitored her vitals the entire time, heart rate, blood pressure and pulse ox and the scope was inserted, pushed all the way to about [address] in, noted some diverticula, took a picture of this, able to get all the way to the cecum, took a picture of appendiceal orifice, noted the ileocecal valve and then slowly withdrew the scope insufflating to look circumferentially while looking at the cecum up the ascending colon to the hepatic flexure, then down the transverse colon to the splenic flexure, into the descending colon and then down into the sigmoid and finally into the rectum. Retroflexed in the rectal vault, saw some minimal internal hemorrhoids maybe grade I-II. Then, removed the scope. The patient tolerated the procedure well and she was recovered in endoscopy suite. Job ID: [id number] DocumentID: [id number] Dictated Date: 12/01/2018 16:16:49 Supervisor Tubing Date: 12/02/2018 01:23:58 Dictated By: STEPHEN DENG DO
== END 2018-12-01 17:49 | disposition home or self-care (01) | DRG 872 ==
LOC: ER FS 13:33 → ICU 17:10 → 4TH 11-26 04:30
PROVIDERS: ADMIT Family Medicine; ATTEND Family Medicine
PROC: 0DB48ZX Excision of Esophagogastric Junction, Via Natural or Artificial Opening Endoscopic, Diagnostic (ICD-10-PCS; 2018-11-30)
PROC: 0DB68ZX Excision of Stomach, Via Natural or Artificial Opening Endoscopic, Diagnostic (ICD-10-PCS; 2018-11-30)
PROC: 0DB78ZX Excision of Stomach, Pylorus, Via Natural or Artificial Opening Endoscopic, Diagnostic (ICD-10-PCS; principal; 2018-11-30 11:50)
PROC: 0DJD8ZZ Inspection of Lower Intestinal Tract, Via Natural or Artificial Opening Endoscopic (ICD-10-PCS; 2018-12-01)
DX: A41.9 Sepsis, unspecified organism (principal); N39.0 Urinary tract infection, site not specified; N17.9 Acute kidney failure, unspecified; K92.1 Melena; E87.2 Acidosis; Z68.43 Body mass index [BMI] 50.0-59.9, adult; K52.1 Toxic gastroenteritis and colitis; E66.2 Morbid (severe) obesity with alveolar hypoventilation; T38.3X5A Adverse effect of insulin and oral hypoglycemic [antidiabetic] drugs, initial encounter; E86.0 Dehydration; D50.9 Iron deficiency anemia, unspecified; J44.9 Chronic obstructive pulmonary disease, unspecified; I12.9 Hypertensive chronic kidney disease with stage 1 through stage 4 chronic kidney disease, or unspecified chronic kidney disease; N18.9 Chronic kidney disease, unspecified; E11.40 Type 2 diabetes mellitus with diabetic neuropathy, unspecified; E11.22 Type 2 diabetes mellitus with diabetic chronic kidney disease; K21.9 Gastro-esophageal reflux disease without esophagitis; R09.02 Hypoxemia; F32.9 Major depressive disorder, single episode, unspecified; K29.70 Gastritis, unspecified, without bleeding; K20.9 Esophagitis, unspecified; K31.7 Polyp of stomach and duodenum; E83.42 Hypomagnesemia; K44.9 Diaphragmatic hernia without obstruction or gangrene; K57.90 Diverticulosis of intestine, part unspecified, without perforation or abscess without bleeding; K64.8 Other hemorrhoids; Z87.891 Personal history of nicotine dependence; Z87.19 Personal history of other diseases of the digestive system; Z91.120 Patient's intentional underdosing of medication regimen due to financial hardship
CPT/HCPCS: 36415; 71045; 78452; 80048; 80053; 81000; 82274; 82728; 82962; 83540; 83605; 83735; 83880; 84100; 85007; 85025; 85027; 85045; 86850; 86900; 86901; 86920; 87040; 87070; 87081; 87088; 87205; 93017; 93306; 94761; 96374

== ENCOUNTER 2018-12-07 23:23 | Emergency (ER) | payer BC ==
[~2018-12-07] VITALS: Ht 165.1 cm; Wt 133.4 kg
[~2018-12-07 23:23] MED LIST: ALLO300T2 PO; ASPI-983 PO; CHOL200059 PO; FLUO40CA PO; GABA-488 PO; GLIP5TAB13 PO; LISI-552 PO; LISI1TAB8 PO; METF-397 PO; MULT1TAB69 PO; OMEP20CA12 PO; POTA20TA15 PO; PROG200C6 PO
[2018-12-07] MEDS ORDERED: LORazepam INJ 2 MG/ML (ATIVAN) VIAL ONE (23:24)
--- NOTE | 2018-12-07 23:41 | ED Neurological Problem ---
General Source: family, EMS Exam Limitations: clinical condition History of Present Illness Date Seen by Provider: Dec 07, 2018 Time Seen by Provider: 23:25 Initial Comments The patient is a morbidly obese 58-year-old female who presents for evaluation of altered mental status via EMS. EMS states the patient has been combative and unable to follow commands in route. was at home with the patient and is in the emergency department with EMS and states that she was acting normal self and then started to shake like she was in pain. When asked if this could've been a seizure he says it is possible that she has no history of seizures. Since that time she seemed very confused. He states the patient does not drink alcohol or abuse drugs. He mentions she was admitted to [facility] about a week ago. The patient is unable to provide any meaningful history at this time. The patient's reports that the patient was anemic during her recent admission and required blood transfusion. Timing/Duration: 1 hour Severity: severe Associated Symptoms: confusion Allergies and Home Medications Allergies Coded Allergies: codeine (Verified Adverse Reaction, Unknown, 11/24/18) Home Medications Allopurinol 300 Mg Tablet, 300 MG PO DAILY, (Reported) Aspirin 81 Mg Tablet.dr, 81 MG PO HS, (Reported) Cholecalciferol (Vitamin D3) 2,000 Unit Tablet, 2,000 UNIT PO DAILY, (Reported) Fluoxetine HCl 40 Mg Capsule, 40 MG PO DAILY, (Reported) Gabapentin 300 Mg Capsule, 300 MG PO HS, (Reported) Glipizide 5 Mg Tablet, 2.5 MG PO DAILY Prescribed by: TU SOLIS on 12/01/18 1045 Lisinopril 20 Mg Tablet, 20 MG PO DAILY Prescribed by: TU SOLIS on 12/01/18 1043 Multivitamin 1 Each Tablet, 1 TAB PO DAILY, (Reported) Omeprazole 20 Mg Capsule.dr, 20 MG PO HS, (Reported) Progesterone,Micronized 200 Mg Capsule, 200 MG PO HS, (Reported) Patient Home Medication List Home Medication List Reviewed: Yes Review of Systems Review of Systems Constitutional: no symptoms reported Eyes: No Symptoms Reported Ears, Nose, Mouth, Throat: no symptoms reported Respiratory: no symptoms reported Cardiovascular: no symptoms reported Gastrointestinal: no symptoms reported Genitourinary: no symptoms reported Musculoskeletal: no symptoms reported Skin: no symptoms reported Psychiatric/Neurological: Other (confusion present) Endocrine: No Symptoms Reported Hematologic/Lymphatic: No Symptoms Reported All Other Systems Reviewed Negative Unless Noted: Yes Past Rszcxoh-Jonxib-Husntm Hx Past Med/Social Hx: Reviewed Nursing Past Med/Soc Hx Patient Social History 2nd Hand Smoke Exposure: No Recent Foreign Travel: No Contact w/Someone Who Travel: No Recent Hopitalizations: No Seasonal Allergies Seasonal Allergies: No Past Medical History Surgeries: Yes Appendectomy, Gallbladder, Hysterectomy Respiratory: Yes COPD Cardiac: Yes Hypertension Neurological: Yes Neuropathy Genitourinary: No Gastrointestinal: Yes Gastroesophageal Reflux Musculoskeletal: No Endocrine: No HEENT: No Cancer: No Psychosocial: Yes Depression Integumentary: No Blood Disorders: Yes (anemia) Family Medical History Diabetes, Hypertension, Vascular Disease Physical Exam Vital Signs Vital Signs - First Documented 12/07/18 23:35 Temp 97.2 Pulse 130 Resp 24 B/P (MAP) 142/119 (127) Pulse Ox 97 O2 Delivery Simple Mask O2 Flow Rate 10.00 Capillary Refill : Height, Weight, BMI Height: 5'3.00" Weight: 303lbs. 0.0oz. [id number]; 51.7 BMI Method:Stated General Appearance: WD/WN, obese, other (moving all 4 extremities spontaneously, not following commands, appears confused) HEENT: PERRL/EOMI, pharynx normal Respiratory: chest non-tender, lungs clear, normal breath sounds, no respiratory distress, no accessory muscle use Cardiovascular: no edema, no JVD, no murmur, tachycardia Gastrointestinal: normal bowel sounds, non tender, soft Back: normal inspection, no CVA tenderness, no vertebral tenderness Extremities: normal range of motion, non-tender, normal inspection Neurologic/Psychiatric: disoriented x 3 Skin: normal color, diaphoresis Focused Exam Lactate Level 12/07/18 23:50: Lactic Acid Level 2.74*H 12/08/18 01:40: Lactic Acid Level 0.77 Lactic Acid Level Laboratory Tests Test 12/07/18 23:50 12/08/18 01:40 Lactic Acid Level 2.74 MMOL/L (0.50-2.00) *H 0.77 MMOL/L (0.50-2.00) Progress/Results/Core Measures Results/Orders Lab Results Laboratory Tests Test 12/07/18 23:44 12/07/18 23:45 12/07/18 23:50 12/07/18 23:54 Range/Units White Blood Count 16.7 H 4.3-11.0 10^3/uL Red Blood Count 3.83 L 4.35-5.85 10^6/uL Hemoglobin 9.2 L 11.5-16.0 G/DL Hematocrit 32 L 35-52 % Mean Corpuscular Volume 85 80-99 FL Mean Corpuscular Hemoglobin 24 L 25-34 PG Mean Corpuscular Hemoglobin Concent 28 L 32-36 G/DL Red Cell Distribution Width 24.7 H 10.0-14.5 % Platelet Count 296 130-400 10^3/uL Mean Platelet Volume 10.4 7.4-10.4 FL Neutrophils (%) (Auto) 83 H 42-75 % Lymphocytes (%) (Auto) 10 L 12-44 % Monocytes (%) (Auto) 3 0-12 % Eosinophils (%) (Auto) 1 0-10 % Basophils (%) (Auto) 1 0-10 % Neutrophils # (Auto) 13.8 H 1.8-7.8 X 10^3 Lymphocytes # (Auto) 1.6 1.0-4.0 X 10^3 Monocytes # (Auto) 0.5 0.0-1.0 X 10^3 Eosinophils # (Auto) 0.2 0.0-0.3 10^3/uL Basophils # (Auto) 0.1 0.0-0.1 10^3/uL Neutrophils % (Manual) 79 % Lymphocytes % (Manual) 10 % Monocytes % (Manual) 2 % Eosinophils % (Manual) 0 % Basophils % (Manual) 0 % Metamyelocytes % 1 % Band Neutrophils 8 % Hypochromasia SLIGHT Anisocytosis SLIGHT Prothrombin Time 13.3 12.2-14.7 SEC INR Comment 1.0 0.8-1.4 Activated Partial Thromboplast Time 26 24-35 SEC D-Dimer 7.20 H 0.00-0.49 UG/ML Sodium Level 143 135-145 MMOL/L Potassium Level 2.7 L 3.6-5.0 MMOL/L Chloride Level 98 98-107 MMOL/L Carbon Dioxide Level 27 21-32 MMOL/L Anion Gap 18 H 5-14 MMOL/L Blood Urea Nitrogen 13 7-18 MG/DL Creatinine 1.65 H 0.60-1.30 MG/DL Estimat Glomerular Filtration Rate 32 BUN/Creatinine Ratio 8 Glucose Level 219 H 70-105 MG/DL Calcium Level 8.8 8.5-10.1 MG/DL Corrected Calcium 9.1 8.5-10.1 MG/DL Magnesium Level 1.8 1.8-2.4 MG/DL Total Bilirubin 0.3 0.1-1.0 MG/DL Aspartate Amino Transf (AST/SGOT) 25 5-34 U/L Alanine Aminotransferase (ALT/SGPT) 22 0-55 U/L Alkaline Phosphatase 85 40-136 U/L Troponin I < 0.30 <0.30 NG/ML Pro-B-Type Natriuretic Peptide 4526.0 H <75.0 PG/ML Total Protein 6.6 6.4-8.2 GM/DL Albumin 3.6 3.2-4.5 GM/DL Serum Alcohol < 10 <10 MG/DL Urine Color YELLOW Urine Clarity CLEAR Urine pH 6.0 5-9 Urine Specific [place] 1.020 1.016-1.022 Urine Protein 2+ H NEGATIVE Urine Glucose (UA) NEGATIVE NEGATIVE Urine Ketones NEGATIVE NEGATIVE Urine Nitrite NEGATIVE NEGATIVE Urine Bilirubin NEGATIVE NEGATIVE Urine Urobilinogen 0.2 NORMAL MG/DL Urine Leukocyte Esterase NEGATIVE NEGATIVE Urine RBC (Auto) NEGATIVE NEGATIVE Urine RBC NONE /HPF Urine WBC RARE /HPF Urine Squamous Epithelial Cells 0-2 /HPF Urine Crystals PRESENT H /LPF Urine Amorphous Sediment FEW ANKIT URATES H /LPF Urine Bacteria NEGATIVE /HPF Urine Casts PRESENT /LPF Urine Hyaline Casts RARE /LPF Urine Granular Casts RARE /LPF Urine Mucus NONE /LPF Urine Culture Indicated NO Urine Opiates Screen NEGATIVE NEGATIVE Urine Oxycodone Screen NEGATIVE NEGATIVE Urine Methadone Screen NEGATIVE NEGATIVE Urine Propoxyphene Screen NEGATIVE NEGATIVE Urine Barbiturates Screen NEGATIVE NEGATIVE Ur Tricyclic Antidepressants Screen NEGATIVE NEGATIVE Urine Phencyclidine Screen NEGATIVE NEGATIVE Urine Amphetamines Screen NEGATIVE NEGATIVE Urine Methamphetamines Screen NEGATIVE NEGATIVE Urine Benzodiazepines Screen NEGATIVE NEGATIVE Urine Cocaine Screen NEGATIVE NEGATIVE Urine Cannabinoids Screen NEGATIVE NEGATIVE Lactic Acid Level 2.74 *H 0.50-2.00 MMOL/L Glucometer 188 H 70-110 MG/DL Test 12/08/18 01:40 Range/Units Lactic Acid Level 0.77 0.50-2.00 MMOL/L My Orders Orders - LOIDA ORDOÑEZ DO Lorazepam Injection (Ativan Injection) (12/07/18 23:24) Cbc With Automated Diff (12/07/18 23:34) Protime With Inr (12/07/18:34) Partial Thromboplastin Time (12/07/18:34) Comprehensive Metabolic Panel (12/07/18:34) Fibrin Degradation Products (12/07/18:34) Troponin I (12/07/18:34) Ua Culture If Indicated (12/07/18:34) Chest 1 View Ap/Pa Only (12/07/18:34) Catheter(Urinary) Insert & Ass 03,15 (12/07/18 23:34) Ekg Tracing (12/07/18:34) Nothing By Mouth (12/08/18 Breakfast) Accucheck Stat ONCE (12/07/18:34) Ed Iv/Invasive Line Start (12/07/18:34) Ed Iv/Invasive Line Start (12/07/18:34) Vital Signs Stroke Patient Q15M (12/07/18 23:34) Ct Head Wo-R/O Stroke (12/07/18 23:34) O2 (12/07/18 23:34) Intake & Output 06,14,22 (12/07/18 23:34) Monitor-Rhythm Ecg Trace Only (12/07/18 23:34) Dysphagia Screening Tool (12/07/18:34) Post Thrombolytic Adminstratio (12/07/18 23:34) Lipid Panel (12/08/18 06:00) Drug Screen Stat (Urine) (12/07/18:34) Alcohol (12/07/18:34) Continuous Pulse Ox (12/07/18 23:34) Probnp Fs (12/07/18 23:41) Creatine Kinase Mb (12/07/18 23:41) Blood Culture (12/07/18 23:41) Lactic Acid Analyzer (12/07/18 23:41) Ns Iv 1000 Ml (Sodium Chloride 0.9%) (12/08/18 00:00) Haloperidol Injection (Haldol Injectio (12/08/18 00:00) Manual Differential (12/07/18 23:44) Vancomycin Injection (Vancomycin Injecti (12/08/18 00:15) Piperacillin/Tazobactam (Bulk) (Zosyn In (12/08/18 00:15) Ciprofloxacin Iv 400mg/200ml (Cipro Iv S (12/08/18 00:15) Blood Culture (12/08/18 00:22) Magnesium (12/08/18 00:28) Potassium Cl 10meq/50ml Ivpb (Kcl 10 Meq (12/08/18 00:30) Ns Iv 1000 Ml (Sodium Chloride 0.9%) (12/08/18 01:00) Lorazepam Injection (Ativan Injection) (12/08/18 00:45) Piperacillin Sodium/Tazobactam (Zosyn Vi (12/08/18 00:28) Ns (Ivpb) (Sodium Chloride 0.9% Ivpb Bag (12/08/18 00:29) Vancomycin Injection (Vancomycin Injecti (12/08/18 00:29) Ns (Ivpb) (Sodium Chloride 0.9%) (12/08/18 00:29) Medications Given in ED Current Medications Medications Dose Ordered Sig/Juan Route Start Time Stop Time Status Last Admin Dose Admin Ciprofloxacin/ Dextrose 200 ml @ 200 mls/hr ONCE ONCE IV 12/08/18 00:15 12/08/18 01:14 DC 12/08/18 00:50 200 MLS/HR Haloperidol Lactate 5 mg ONCE ONCE IM 12/08/18 00:00 12/08/18 00:01 DC 12/08/18 00:20 5 MG Lorazepam 2 mg ONCE ONCE IVP 12/08/18 00:45 12/08/18 00:46 DC 12/07/18 23:32 2 MG Piperacillin Sod/ Tazobactam Sod 4.5 gm/Sodium Chloride 120 ml @ 240 mls/hr ONCE ONCE IV 12/08/18 00:15 12/08/18 00:44 DC 12/08/18 01:01 240 MLS/HR Vital Signs/I&O 12/07/18 12/07/18 23:35 23:35 Temp 97.2 Pulse 130 Resp 24 B/P (MAP) 142/119 (127) Pulse Ox 97 97 O2 Delivery Simple Mask Simple Mask O2 Flow Rate 10.00 10.00 12/08/18 00:00 Intake Total 100 ml Balance 100 ml Progress Progress Note : Progress Note @0175 - Pt able to state her name and believes that she is in [place] (a nearby [facility] where she was recently a hospital patient). @0050 - the patient has evidence of HCAP, hypokalemia, and CHF. Additionally she likely had a seizure at home and has not returned to baseline. The patient will benefit from a hospital with neurology. This was discussed with the patient's and he prefers the [facility] system in the [place] area. The [facility] transfer line was contacted at this time and they will get the transfer physician on the line and call back. Initial ECG Rhythm: S.Tach Comment @2345 - Sinus tachycardia rate of 120, left axis deviation, no acute ischemic findings noted, no STEMI, reviewed and interpreted by myself Departure Impression Primary Impression: HCAP (healthcare-associated pneumonia) Additional Impressions: Witnessed seizure-like activity Hypokalemia Acute congestive heart failure Altered mental status Disposition: 02 XFER SHT-TRM HOSP Condition: Critical Transfer Time Spoke to Accepting Phy: 01:10 Transfer Progress Notes @0050 - [facility] transfer line called at this time, they will call back with tx physician. @0110 - Dr. Ayala accepts the transfer. They will call back with a location and bed assignment. @0222 - Pt has a bed at [facility]. They are requesting an ABG. Method of Transfer: EMS Departure-Patient Inst. Referrals: SELFMONIQUE MD (PCP/Family) Primary Care Physician LOIDA ORDOÑEZ DO Dec 07, 2018 23:41
[2018-12-07 23:55] LABS: BASOPHILS % (AUTO) 1 % (0-10); EOSINOPHILS % (AUTO) 1 % (0-10); HEMATOCRIT 32 % (35-52); HEMOGLOBIN 9.2 G/DL (11.5-16.0); LYMPHOCYTES % (AUTO) 10 % (12-44); MEAN CORPUSCULAR HEMOGLOBIN 24 PG (25-34); MEAN CORPUSCULAR HGB CONC 28 G/DL (32-36); MEAN CORPUSCULAR VOLUME 85 FL (80-99); MEAN PLATELET VOLUME 10.4 FL (7.4-10.4); MONOCYTES % (AUTO) 3 % (0-12); NEUTROPHILS # (AUTO) 13.8 X 10^3 (1.8-7.8); NEUTROPHILS % (AUTO) 83 % (42-75); PLATELET COUNT 296 10^3/uL (130-400); RED CELL DISTRIBUTION WIDTH 24.7 % (10.0-14.5); WHITE BLOOD COUNT 16.7 10^3/uL (4.3-11.0)
[2018-12-07 23:56] LABS: BASOPHILS # (AUTO) 0.1 10^3/uL (0.0-0.1); EOSINOPHILS # (AUTO) 0.2 10^3/uL (0.0-0.3); LYMPHOCYTES # (AUTO) 1.6 X 10^3 (1.0-4.0); MONOCYTES # (AUTO) 0.5 X 10^3 (0.0-1.0)
[2018-12-08] MEDS ORDERED: NS IV 1000 ML 1,000 ML IV SCH
[2018-12-08] MEDS ORDERED: ZIPRASIDONE 20 MG INJ (GEODON) VIAL IM ONE
[2018-12-08] MEDS ORDERED: HALOPERIDOL 5 MG/ML (HALDOL) AMP IM ONE
[2018-12-08 00:08] LABS: BACTERIA,URINE NEGATIVE /HPF; BILIRUBIN,URINE NEGATIVE (NEGATIVE); CLARITY,URINE CLEAR; COLOR,URINE YELLOW; GLUCOSE, URINE (UA) NEGATIVE (NEGATIVE); KETONES,URINE NEGATIVE (NEGATIVE); LEUKOCYTE ESTERASE ,URINE NEGATIVE (NEGATIVE); NITRITE,URINE NEGATIVE (NEGATIVE); PROTEIN,URINE 2+ (NEGATIVE); SQUAMOUS EPITHELIAL CELL,UR 0-2 /HPF; UROBILINOGEN,URINE 0.2 MG/DL (NORMAL); WBC,URINE RARE /HPF
[2018-12-08 00:09] LABS: AMORPHOUS SEDIMENT,UR FEW AMOR URATES /LPF; GRANULAR CASTS,URINE RARE /LPF; HYALINE CASTS, URINE RARE /LPF
[2018-12-08 00:10] LABS: AMPHETAMINE SCREEN, URINE NEGATIVE (NEGATIVE); BARBITURATE SCREEN URINE NEGATIVE (NEGATIVE); BENZODIAZEPINES SCREEN URINE NEGATIVE (NEGATIVE); CANNABINOID SCREEN, URINE NEGATIVE (NEGATIVE); COCAINE SCREEN URINE NEGATIVE (NEGATIVE); METHADONE STAT NEGATIVE (NEGATIVE); METHAMPHETAMINE SCREEN URINE S NEGATIVE (NEGATIVE); OPIATE SCREEN URINE NEGATIVE (NEGATIVE); OXYCODONE STAT NEGATIVE (NEGATIVE); PROPOXYPHENE STAT NEGATIVE (NEGATIVE); TRICYCLIC ANTIDEPRESSANTS SCRE NEGATIVE (NEGATIVE)
[2018-12-08] MEDS ORDERED: PIPERACILLIN/TAZOBACTAM (BULK) 4.5 GM in NS (IVPB) 100 ML IV ONE (00:15)
[2018-12-08] MEDS ORDERED: VANCOMYCIN INJECTION 1,000 MG in NS (IVPB) 250 ML IV SCH (00:15)
[2018-12-08] MEDS ORDERED: CIPROFLOXACIN IV 400MG/200ML 200 ML IV ONE (00:15)
[2018-12-08 00:25] LABS: ALANINE AMINOTRANSFERASE 22 U/L (0-55); ALKALINE PHOSPHATASE 85 U/L (40-136); BILIRUBIN,TOTAL 0.3 MG/DL (0.1-1.0); BUN/CREATININE RATIO 8; CALCIUM 8.8 MG/DL (8.5-10.1); CARBON DIOXIDE 27 MMOL/L (21-32); CHLORIDE 98 MMOL/L (98-107); CREATININE SERUM 1.65 MG/DL (0.60-1.30); GFR ESTIMATED 32; GLUCOSE 219 MG/DL (70-105); POTASSIUM 2.7 MMOL/L (3.6-5.0); SODIUM 143 MMOL/L (135-145)
[2018-12-08 00:26] LABS: ALBUMIN 3.6 GM/DL (3.2-4.5); TOTAL PROTEIN 6.6 GM/DL (6.4-8.2)
[2018-12-08] MEDS ORDERED: PIPERACILLIN/TAZO 4.5 GM VIAL (ZOSYN) IV ONE (00:28)
[2018-12-08] MEDS ORDERED: NS (IVPB) 100 ML ONE (00:29)
[2018-12-08] MEDS ORDERED: NS (IVPB) 250 ML ONE ×2 (00:29→02:26)
[2018-12-08] MEDS ORDERED: VANCOMYCIN 1000 MG/VIAL ONE (00:29)
[2018-12-08 00:45] LABS: FIBRIN DEGRADATION PRODUCTS 7.2 UG/ML (0.00-0.49); PROTHROMBIN TIME PATIENT 13.3 SEC (12.2-14.7)
[2018-12-08] MEDS ORDERED: LORazepam INJ 2 MG/ML (ATIVAN) VIAL IVP ONE (00:45)
[2018-12-08] MEDS ORDERED: NS IV 1000 ML 500 ML IV SCH (01:00)
[2018-12-08] MEDS: POTASSIUM CL 10MEQ/50ML IVPB 50 ML IV SCH ×4 (01:01→02:55)
[2018-12-08 01:07] LABS: ANISOCYTOSIS SLIGHT; BAND NEUTROPHILS 8 %; BASOPHILS % (MANUAL) 0 %; EOSINOPHILS % (MANUAL) 0 %; HYPOCHROMASIA SLIGHT; LYMPHOCYTES % (MANUAL) 10 %; METAMYELOCYTES % 1 %; MONOCYTES % (MANUAL) 2 %; NEUTROPHILS % (MANUAL) 79 %
[2018-12-08] MEDS ORDERED: NS (IVPB) 250 ML IV ONE (02:30)
[2018-12-08 02:59] VITALS: BP 187/115
--- NOTE | 2018-12-08 05:26 | Diagnostic Imaging Report ---
INDICATION: Not available. COMPARISON: 11/26/2018 FINDINGS: Single frontal view of the chest demonstrates mild cardiomegaly. Pulmonary vasculature is within normal limits. The lungs are well aerated and clear. No large pleural effusion or pneumothorax is seen. The visualized osseous structures show no acute abnormalities. IMPRESSION: 1. Cardiomegaly, but no evidence of failure or focal infiltrate. Dictated by: Dictated on workstation # [id number]
--- NOTE | 2018-12-08 06:36 | Diagnostic Imaging Report ---
INDICATION: Altered mental status. TECHNIQUE: Routine non contrast-enhanced axial images were obtained from the skull base to the vertex. Auto Exposure Controls were utilized during the CT exam to meet ALARA standards for radiation dose reduction COMPARISON: None. FINDINGS: There is moderate image degradation secondary to motion artifact. The ventricles and cortical sulci are diffusely prominent, compatible with age-related volume loss. There are confluent areas of abnormal, low attenuation in the periventricular white matter. This is consistent with small vessel ischemic changes; age-indeterminate. There is no prior study available for comparison. There is no midline shift or mass-effect. No acute intra-axial hemorrhage is seen. There are no abnormal areas of increased or decreased density to suggest acute hemorrhage or edema. No extra-axial masses or collections are present. The bony calvarium is intact. The visualized paranasal sinuses are unremarkable. The mastoid air cells are clear. IMPRESSION: 1. Moderate image degradation secondary to motion artifact, but no gross acute intracranial abnormality. No CT evidence of mass, acute infarct or intracranial hemorrhage. 2. Small vessel ischemic changes in the periventricular and subcortical white matter; likely chronic. Dictated by: Dictated on workstation # [id number]
[2018-12-08 09:28] LABS: CHOLESTEROL 171 MG/DL (< 200); HDL CHOLESTEROL 26 MG/DL (40-60); TRIGLYCERIDES 264 MG/DL (<150); VLDL CHOLESTEROL 53 MG/DL (5-40)
[2018-12-08 09:29] LABS: CREATINE KINASE MB 1.4 NG/ML (<6.6)
== END 2018-12-08 03:32 | disposition short-term general hospital (02) ==
LOC: EDUNIT# 23:23 → ER FS 23:24
DX: J18.9 Pneumonia, unspecified organism (principal); E87.6 Hypokalemia; I50.9 Heart failure, unspecified; R41.82 Altered mental status, unspecified; R25.9 Unspecified abnormal involuntary movements; E66.01 Morbid (severe) obesity due to excess calories; J44.9 Chronic obstructive pulmonary disease, unspecified; I11.0 Hypertensive heart disease with heart failure; G62.9 Polyneuropathy, unspecified; K21.9 Gastro-esophageal reflux disease without esophagitis; F32.9 Major depressive disorder, single episode, unspecified; Z88.5 Allergy status to narcotic agent; Z79.82 Long term (current) use of aspirin; Z79.84 Long term (current) use of oral hypoglycemic drugs; Z90.49 Acquired absence of other specified parts of digestive tract; Z90.710 Acquired absence of both cervix and uterus; Z82.49 Family history of ischemic heart disease and other diseases of the circulatory system
CPT/HCPCS: 36415; 51702; 70450; 71045; 80053; 80061; 80306; 80320; 81000; 82553; 82962; 83605; 83735; 83880; 84484; 85007; 85027; 85379; 85610; 85730; 87040; 93005; 93041; 96365; 96367; 96368; 96372; 96375

== ENCOUNTER → 2018-12-14 | Outpatient (CLI) | payer BC ==
[~2018-12-14] MED LIST changes: -OMEP20CA12 PO; +OMEP20CA13 PO; +PROG200C10 PO; -PROG200C6 PO
[2018-12-14 14:33] LABS: ABG PCO2 58 MMHG (35-45); ABG PH 7.48 (7.37-7.43); ABG PO2 53 MMHG (79-93)
[2018-12-14 14:42] LABS: ABG BASE EXCESS 16.9 MMOL/L (-2.5-2.5); ABG OXYGEN SATURATION 89 % (94-100)
[2018-12-14 14:43] LABS: ALLENS TEST YES-POS; INSPIRED O2 3L; VENTILATOR NO
== END ==
LOC: LAB FS 14:17
PROVIDERS: ATTEND Family Medicine
DX: J44.9 Chronic obstructive pulmonary disease, unspecified (principal); J96.10 Chronic respiratory failure, unspecified whether with hypoxia or hypercapnia
CPT/HCPCS: 82805

== ENCOUNTER → 2021-07-29 | Outpatient (CLI) | payer BC ==
[~2021-07-29] MED LIST changes: +ASPI-1238 PO; -ASPI-983 PO; -LISI-552 PO; +LISI1TAB46 PO; -LISI1TAB8 PO; +LISI20TA26 PO; +MULT-567 PO; -MULT1TAB69 PO; -OMEP20CA13 PO; +OMEP20CA18 PO; +POTA-179 PO; -POTA20TA15 PO
--- NOTE | 2021-07-29 11:28 | Diagnostic Imaging Report ---
INDICATION: Shortness of breath with exertion, COPD. EXAMINATION: Two-view chest 07/29/2021 COMPARISON: 12/07/2018 FINDINGS: The heart is stable. Pulmonary vasculature unremarkable. There are no focal infiltrates. No effusions. No pneumothorax. IMPRESSION: 1. No acute cardiopulmonary process. Dictated by: Dictated on workstation # [id number]
== END ==
LOC: RAD FS 10:41
PROVIDERS: ATTEND Family Medicine
DX: J44.9 Chronic obstructive pulmonary disease, unspecified (principal); E78.2 Mixed hyperlipidemia
CPT/HCPCS: 71046

== ENCOUNTER 2021-12-14 05:37 | Outpatient (RCR) | payer BC | END 2022-01-13 | disposition home or self-care (01) | LOC: PREOP 05:37 → EDSTATUS 10:30 | PROVIDERS: ATTEND Podiatrist Foot & Ankle Surgery | DX: Z01.818 Encounter for other preprocedural examination (principal) ==